=== PATIENT | female | born 1970 | race Caucasian/White ===

== ENCOUNTER → 2017-12-13 01:15 | Outpatient (CLI) | payer MEDICAID, SELFPAY ==
[2017-12-13] MEDS: Inhaler, Assist Device 1 EACH MC (13:09)
[2017-12-13] MEDS: Albuterol HFA 18 GM 200 PUFF INH IH (13:09)
--- NOTE | 2017-12-13 13:17 | PFT_ITS ---
PULMONARY FUNCTION TEST DATE OF SERVICE December 13, 2017 REQUESTING PROVIDER Jacquelin Skaggs M.D. INTERPRETATION OF STUDY The spirometry shows no evidence of obstructive airways disease, but there is significant bronchodilator response. There is no evidence of obstructive airways disease, but there is significant bronchodilator response, which may represent an effort-related phenomenon. However, this can represent early developing hyper reactive airways as well. When this study was compared to previous ones from 02/22/2007, 08/16/2007, 2008, 09/19/2008, 01/23/2009, 03/25/2013, the patient's FVC has largely been stable with little fluctuations and an overall 350 cc decline over 11 years. FEV1 also had slight fluctuation over time and largely stable with an overall 330 cc decline in 11 years. Susan Matos M.D. LESLEY/ingrid T-12/20/2017
== END ==
PROVIDERS: PCP Nurse Practitioner Family; Visit Provider Nurse Practitioner Family
DX: J45.909 Unspecified asthma, uncomplicated (principal)
CPT/HCPCS: 94060

== ENCOUNTER 2017-12-31 11:18 | Emergency (ER) | payer MEDICAID, SELFPAY ==
[2017-12-31 11:24] VITALS: BP 141/76; PULSE 85; RESP 16; TEMP 36.7; O2SAT 96
--- NOTE | 2017-12-31 11:48 | ED.GENADUL_ITS ---
Disposition Clinical Impression: Left knee sprain, Sprain of left ankle Disposition: HOME Condition: Stable Instructions: Ankle Sprain (ED), Knee Sprain (ED) Additional Instructions: Continue to take [id number] pain medication as directed on packaging. You may advance activity as tolerated and wear supportive bracing to help with your discomfort. If not improving over the next week please call orthopedist for reassessment and treatment if needed. Referrals: Krishna Yañez MD [ [facility] STAFF PHYSICIAN] - Valentín Kamara MD [ [facility] STAFF PHYSICIAN] - Sina Martínez MD [ [facility] STAFF PHYSICIAN] - Medical Decision Making - Medical Decision Making Patient presenting to the emergency department with chief complaint of left knee and ankle pain. Patient has a documented and reported sprain that occurred 2 weeks ago and I reviewed these notes and patient was ambulatory with full range of motion at that time which she has diffuse soft tissue tenderness on today's examination but is otherwise unremarkable and ambulatory without any gait abnormality or disturbance. Patient did have increased activity yesterday which I feel may have exacerbated the sprain. Patient has no worrisome findings to make me feel that this is fractured or dislocated and she is neurovascularly intact with full weightbearing. Given this I do not feel that radiological imaging is needed or warranted at this time but patient was provided with supportive bracing of her knee and her ankle as I feel this may help with discomfort. Otherwise patient was encouraged to continue use over-the -counter pain medication for the next 24 hours [id number] and then on a as -needed basis and if not improving over the next week to call orthopedic office for reassessment. After discussion of diagnosis and plan of care with patient patient agreed and stated no further needs, questions, or concerns at this time. History of Present Illness - General Chief complaint: Orthopedic Stated complaint: UNKNOWN Time Seen by Provider: 12/31/17 11:19 Source: patient, family, RN notes reviewed Mode of arrival: ambulatory Limitations: no limitations - History of Present Illness Initial comments: Patient reports 2 weeks ago she was coming out of a restroom and stepped wrong twisting her left knee and ankle. She was seen by her primary care provider and diagnosed with a sprain. She has been resting and applying ice and had had some slight improvement but then yesterday worked very hard outside and around the house and today is having worsening pain. Patient denies any new injury or trauma, and states that she can still walk and put pressure on the extremity but it is tender. Patient does state that she took acetaminophen but did not fully resolve her pain. Onset/Timin -: week(s) Location: left, lower extremity Severity scale (1-10): 7 Quality: aching Consistency: constant Improves with: rest Worsens with: movement Associated Symptoms: denies other symptoms Treatments Prior to Arrival: other (Acetaminophen) - Related Data Cpap 08/05/12 Inhaler, Assist Devices [Space Chamber Plus] 1 each MC PRN #1 01/20/14 Hydroxychloroquine Sulfate 400 mg PO DAILY tab-cap 11/13/14 Adalimumab [Humira] 1 ea IM DIRECTED 02/14/15 Meloxicam 7.5 mg PO DAILY 01/12/17 Hydroxyzine Pamoate [Vistaril] 50 mg PO BID PRN #60 tab-cap 05/16/17 Albuterol Sulfate [Proair Hfa] 2 puff IH Q4H PRN #3 inhaler 06/27/17 Fluticasone/Salmeterol [Advair HFA 230-21] 2 puff IH BID #3 inhaler 06/27/17 Ranitidine HCl [Zantac] 150 mg PO BID #180 tab 06/27/17 Doxepin HCl 100 mg PO HS #90 tab-cap 07/03/17 Mupirocin [MUPIROCIN 2%] 22 gm TP DAILY script 08/09/17 Venlafaxine HCl [Effexor Xr] 75 mg PO DAILY #90 tab-cap 09/19/17 Venlafaxine HCl [Effexor Xr] 150 mg PO DAILY #90 tab-cap 09/19/17 Albuterol Sulfate 1.25 mg IH QID PRN 90 Days #3 box 10/17/17 Fluticasone Propionate [Flonase] 2 puff NS DAILY #1 spray 10/27/17 Diclofenac Sodium Cr [Voltaren-Xr] 75 mg PO BID tab-cap 11/16/17 Dicyclomine HCl 10 mg PO TID PRN #90 tab-cap 12/29/17 Loratadine [Claritin] 10 mg PO DAILY #90 tab 12/29/17 Allergies Allergy/AdvReac Type Severity Reaction Status Date / Time benzonatate Allergy Severe rash Unverified 12/25/17 15:53 [From Amando Denise] codeine Allergy Unknown SKIN RASH Unverified 12/25/17 15:53 Penicillins Allergy Unknown SKIN RASH Unverified 12/25/17 15:53 Sulfa (Sulfonamide Allergy Unknown SKIN RASH Unverified 12/25/17 15:53 Antibiotics) doxycycline Allergy RASH Unverified 12/25/17 15:53 adhesive AdvReac Severe SKIN Unverified 12/25/17 15:53 BREAKDOWN montelukast AdvReac Mild NAUSEA, Unverified 12/25/17 15:53 VOMITING, DIARRHEA Review of Systems Constitutional: denies: chills, fever Respiratory: no symptoms reported. denies: shortness of breath Cardiovascular: denies: chest pain, palpitations, syncope Musculoskeletal: as per HPI, arthralgia. denies: joint swelling Skin: denies: change in color Neurological: denies: numbness, paresthesias, abnormal gait Past Medical History - Past Medical History Medical history: arthritis, GERD Patient notes chronic dermatitis for which she takes multiple medications. SESAY, developmentally delayed, Surgical history: cholecystectomy, EGD, hysterectomy, other Family history: cancer, diabetes, hypertension - Social History Smoking status: never smoker Alcohol use: none Drug use: none Living Situation: lives with family General Exam - General Limitations: other (Developmental delay) - Head Head exam: Present: atraumatic, normocephalic, normal inspection - Eye Eye exam: Present: normal apperance, PERRL - Respiratory Respiratory exam: Absent: respiratory distress - Cardiovascular Cardiovascular Exam: Present: regular rate, normal rhythm - Expanded Lower Extremity Exam Left Upper Leg exam: Present: normal inspection Knee exam: Present: full ROM, tenderness (Diffuse soft tissue), crepidus (Mild with rotational injury), pain w/ pronation/supination (Mild), full knee extension. Absent: swelling, abrasion, ecchymosis, erythema, pain/laxity with valgus, pain/laxity with varus Lower Leg exam: Present: full ROM Ankle exam: Present: full ROM, tenderness (To the anterior soft tissue). Absent : swelling, deformity, anterior draw sign Foot/Toe exam: Present: normal inspection. Absent: calcaneal tenderness, tenderness at base of 5th metatarsal Neuro vascular tendon exam: Present: no vascular compromise. Absent: pulse deficit, motor deficit, sensory deficit, tendon deficit, significant pain with passive ROM of distal joint Gait: observed and normal. negative: unable to bear weight - Neurological Exam Neurological exam: Present: alert, oriented X3. Absent: altered - Skin Skin exam: Present: warm, dry, normal color Course Vital Signs - 24 hr 12/31/17 11:24 Temperature 36.7 C Pulse 85 Respiratory 16 Rate Blood Pressure 141/76 Pulse Oximetry 96
[2017-12-31 14:56] VITALS: BP 133/74; PULSE 80; RESP 16; TEMP 36.7; O2SAT 97
== END 2017-12-31 12:25 | disposition home or self-care (01) ==
PROVIDERS: Emergency Provider Emergency Medicine; PCP Nurse Practitioner Family
DX: S83.92XA Sprain of unspecified site of left knee, initial encounter (principal); S93.402A Sprain of unspecified ligament of left ankle, initial encounter; X50.1XXA Overexertion from prolonged static or awkward postures, initial encounter
CPT/HCPCS: 29505; 29515; 99283; 99282; L1902

== ENCOUNTER 2018-01-03 16:04 | Emergency (ER) | payer MEDICAID, SELFPAY ==
[2018-01-03 16:08] VITALS: BP 151/96; PULSE 74; RESP 18; TEMP 37.1; O2SAT 95
--- NOTE | 2018-01-03 16:31 | ED.GENADUL_ITS ---
Disposition Clinical Impression: Left knee pain, Left ankle sprain Disposition: HOME Condition: Stable Instructions: Ankle Sprain (ED), Knee Pain (ED) Additional Instructions: Take your diclofenac as directed. Take Tylenol as needed and directed for additional pain. Rest, ice, elevate left lower extremity is much as possible. Follow-up with orthopedics with any persistent or worsening symptoms. Return to the emergency department with any worsening or new concerning symptoms. Medical Decision Making - Medical Decision Making 47yo F who presents for continued L ankle pain and swelling and L knee pain after a fall into a hole in the ground while walking 2 weeks ago. Pt was seen at pcp office at that time and did not have imaging and was diagnosed with a sprain and then here in the ED 3 days ago for same complaint and imaging was not indicated based on exam by provider at that time as continued symptoms was thought due to increased activity and pt was given ankle brace. Today, pt ambulated back to ED room with some limp. Pt admits to continued weight bearing since injury. She denies new injury. Her L ankle has minimal tenderness at malleoli but otherwise no ecchymoses or obvious edema. She is neurovascularly intact. Her L knee has no ligamentous instability and no evidence of trauma and no tenderness to palpation. I explained to pt that pain with sprains can last for weeks to months due to continued weight bearing if the lower extremity is not rested. Pt states she has crutches at home but she has not been using them. I offered pt an ankle and knee xray but she declined. She was given ortho f/u list on visit 3 days ago. She was instructed on the importance of RICE and to continue her diclofenac and tylenol if needed. She was instructed to f/u with ortho as needed for re-evaluation if symptoms worsen and to return here with any concerns. History of Present Illness - General Chief complaint: Orthopedic Stated complaint: SWOLLEN LEFT ANKLE Time Seen by Provider: 01/03/18 16:05 Source: patient Mode of arrival: ambulatory Limitations: no limitations - History of Present Illness Initial comments: Pt is a 47yo F who with L ankle pain and swelling and L knee pain for the past couple weeks after she stepped into a hole in the ground and twisted her ankle and knee. Pt was seen at the pcp office at that time and did not have imaging and was diagnosed with sprain. Pt was then seen here in the ED for the same complaint 3 days ago and did not have imaging at that time as it was felt her continued pain was due to continued activity and weight bearing. Pt was given ankle brace and presents today for continued ankle pain and swelling. She is also c/o continued L knee pain but she is also wearing a knee brace. She states she has been walking and weight bearing on her lower extremity. She does admit to elevation and ice and takes diclofenac for her RA. - Related Data Cpap 08/05/12 Inhaler, Assist Devices [Space Chamber Plus] 1 each MC PRN #1 01/20/14 Hydroxychloroquine Sulfate 400 mg PO DAILY tab-cap 11/13/14 Adalimumab [Humira] 1 ea IM DIRECTED 02/14/15 Meloxicam 7.5 mg PO DAILY 01/12/17 Hydroxyzine Pamoate [Vistaril] 50 mg PO BID PRN #60 tab-cap 05/16/17 Albuterol Sulfate [Proair Hfa] 2 puff IH Q4H PRN #3 inhaler 06/27/17 Fluticasone/Salmeterol [Advair HFA 230-21] 2 puff IH BID #3 inhaler 06/27/17 Ranitidine HCl [Zantac] 150 mg PO BID #180 tab 06/27/17 Doxepin HCl 100 mg PO HS #90 tab-cap 07/03/17 Mupirocin [MUPIROCIN 2%] 22 gm TP DAILY script 08/09/17 Venlafaxine HCl [Effexor Xr] 75 mg PO DAILY #90 tab-cap 09/19/17 Venlafaxine HCl [Effexor Xr] 150 mg PO DAILY #90 tab-cap 09/19/17 Albuterol Sulfate 1.25 mg IH QID PRN 90 Days #3 box 10/17/17 Fluticasone Propionate [Flonase] 2 puff NS DAILY #1 spray 10/27/17 Diclofenac Sodium Cr [Voltaren-Xr] 75 mg PO BID tab-cap 11/16/17 Dicyclomine HCl 10 mg PO TID PRN #90 tab-cap 12/29/17 Loratadine [Claritin] 10 mg PO DAILY #90 tab 12/29/17 Allergies Allergy/AdvReac Type Severity Reaction Status Date / Time benzonatate Allergy Severe rash Unverified 01/03/18 16:11 [From Milychilocaprice Camelia] codeine Allergy Unknown SKIN RASH Unverified 01/03/18 16:11 Penicillins Allergy Unknown SKIN RASH Unverified 01/03/18 16:11 Sulfa (Sulfonamide Allergy Unknown SKIN RASH Unverified 01/03/18 16:11 Antibiotics) doxycycline Allergy RASH Unverified 01/03/18 16:11 adhesive AdvReac Severe SKIN Unverified 01/03/18 16:11 BREAKDOWN montelukast AdvReac Mild NAUSEA, Unverified 01/03/18 16:11 VOMITING, DIARRHEA Review of Systems Constitutional: denies: chills, fever Eyes: denies: eye pain ENT: denies: ear pain, dental pain Respiratory: denies: cough, shortness of breath Cardiovascular: denies: chest pain, dyspnea on exertion Gastrointestinal: denies: abdominal pain, nausea, vomiting Genitourinary: denies: urgency, dysuria, frequency Musculoskeletal: denies: back pain Skin: denies: rash, lesions Neurological: denies: headache, weakness, numbness Past Medical History - Past Medical History Medical history: arthritis, GERD Chronic dermatitis, Developmentally delayed Surgical history: cholecystectomy, EGD, hysterectomy, other (carpal tunnel release, Anival fundoplication) Family history: cancer, diabetes, hypertension - Social History Smoking status: current everyday smoker Alcohol use: none Drug use: none General Exam - General Limitations: no limitations General appearance: alert, in no apparent distress - Eye Eye exam: Present: EOMI - ENT ENT exam: Present: mucous membranes moist - Neck Neck exam: Present: normal inspection - Respiratory Respiratory exam: Absent: respiratory distress - Cardiovascular Cardiovascular Exam: Present: regular rate - Extremities Exam Extremities exam: Present: other (L knee with normal ROM, without edema, ecchymoses, erythema, and no pain with varus or valgus stress. Negative L anterior/posterior drawer test. No L knee ligamentous instability. No calf tenderness. Minimal tenderness L medial/lateral malleolus. No L ankle edema/ erythema/ecchymoses. L DP/PT pulses intact. No L 5th MT tenderness or trauma. MS LLE 5/5. ) - Neurological Exam Neurological exam: Present: alert, oriented X3 - Psychiatric Psychiatric exam: Present: normal affect - Skin Skin exam: Present: warm, dry, intact Course Vital Signs - 24 hr 01/03/18 16:08 Temperature 98.8 F Pulse 74 Respiratory 18 Rate Blood Pressure 151/96 Pulse Oximetry 95
[2018-01-03 16:40] VITALS: BP 151/96; PULSE 74; RESP 18; TEMP 37.1; O2SAT 95
== END 2018-01-03 16:40 | disposition home or self-care (01) ==
PROVIDERS: Emergency Provider Physician Assistant; PCP Nurse Practitioner Family
DX: M25.562 Pain in left knee (principal); S93.402A Sprain of unspecified ligament of left ankle, initial encounter; W17.2XXA Fall into hole, initial encounter
CPT/HCPCS: 99282

== ENCOUNTER 2018-01-30 12:44 | Outpatient (CLI) | payer MEDICAID, SELFPAY ==
--- NOTE | 2018-01-30 09:35 | DI.RAD_ITS ---
SYMPTOMS/DIAGNOSIS: LT ANKLE PAIN, S/P FALL SEVERAL WEEKS AGO, LT KNEE PAIN LEFT ANKLE: There is no evidence of a fracture or dislocation. Minimal degenerative changes involving the mortise joint are identified and a calcaneal spur measures 8 mm. There is spurring at the insertion of the Achilles aponeurosis on the calcaneus as well. SUMMARY: No evidence of a fracture or dislocation. LEFT KNEE: There is no evidence of a fracture or dislocation.
== END 2018-01-30 13:04 ==
PROVIDERS: PCP Nurse Practitioner Family; Visit Provider Orthopaedic Surgery
DX: M25.572 Pain in left ankle and joints of left foot (principal); M19.072 Primary osteoarthritis, left ankle and foot; M77.32 Calcaneal spur, left foot; M25.562 Pain in left knee
CPT/HCPCS: 73562; 73610

== ENCOUNTER 2018-05-31 08:22 | Outpatient (CLI) | payer MEDICAID, SELFPAY ==
[2018-05-31 12:43] LABS: Abs Immature Grans 0.01 k/cumm (0.0-0.09); Absolute Basophil Count 0.02 k/cumm (0.0-0.2); Absolute Eosinophil Count 0.03 k/cumm (0.0-0.7); Absolute Lymphocyte Count 1.71 k/cumm (1.2-3.4); Absolute Monocyte Count 0.51 k/cumm (0.11-0.7); Absolute Neutrophil Count 6.92 k/cumm (1.2-6.7); Basophils % 0.2; Eosinophils % 0.3; HCT 43.7 % (36.0-46.0); HGB 14.8 g/dL (12.0-15.5); Immature Grans % 0.1; Lymphocytes % 18.6; Mean Corp. HGB Concentration 33.9 g/dL (32.0-36.0); Mean Corpuscular Hemoglobin 30.4 pg (27.0-33.0); Mean Corpuscular Volume 89.7 fL (80-95); Mean Platelet Volume 10.2 fL (8.0-11.0); Monocytes % 5.5; Neutrophils % 75.3; Platelet Count 283 x1000/uL (130-400); RBC 4.87 m/cumm (4.00-5.20); RBC Distribution Width 12.3 % (11.7-14.6)
[2018-05-31 12:56] LABS: ALT 53 U/L (12-78); AST 16 U/L (15-37); Albumin 3.9 g/dL (3.4-5.0); Alkaline Phosphatase 92 U/L (46-116); Anion Gap 7.5 mmol/L (3-11); BUN 20 mg/dL (7-18); Bilirubin, Total 0.4 mg/dL (0.2-1.0); CO2 30.5 mmol/L (21.0-32.0); CREATININE 0.87 mg/dL (0.55-1.02); Calcium 9.2 mg/dL (8.5-10.1); Chloride 103 mmol/L (98-107); Glucose 83 mg/dL (70-100); Potassium 4.3 mmol/L (3.5-5.1); Sodium 141 mmol/L (136-145); Total Protein 7.1 g/dL (6.4-8.2)
== END 2018-05-31 08:42 ==
PROVIDERS: PCP Nurse Practitioner Family; Visit Provider Internal Medicine
DX: H20.9 Unspecified iridocyclitis (principal); L25.9 Unspecified contact dermatitis, unspecified cause
CPT/HCPCS: 36415; 80053; 85025

== ENCOUNTER 2018-06-25 13:02 | Outpatient (CLI) | payer MEDICAID, SELFPAY ==
--- NOTE | 2018-06-25 12:58 | DI.RAD_ITS ---
SYMPTOM/DIAGNOSIS: WORSENING RT KNEE PAIN RIGHT KNEE: Three views. Comparison is made with 12/21/15. There is mild narrowing and rufina- articular spurring in the medial femoral tibial joint space. There is mild joint space narrowing and rufina-articular spurring at the patellofemoral joint. The bones are intact and normally mineralized. The soft tissues are unremarkable. IMPRESSION: Stable degenerative changes of the right knee.
== END 2018-06-25 13:22 ==
PROVIDERS: PCP Nurse Practitioner Family; Visit Provider Orthopaedic Surgery
DX: M25.561 Pain in right knee (principal); M17.11 Unilateral primary osteoarthritis, right knee
CPT/HCPCS: 73562

== ENCOUNTER 2018-07-13 01:35 | Outpatient (CLI) | payer MEDICAID, SELFPAY ==
[2018-07-13 11:38] LABS: Cholesterol 235 mg/dL (50-200); HDL Cholesterol 50 mg/dL (40-60); LDL CHOLESTEROL 156 mg/dL (<100); Triglyceride 150 mg/dL (30-150)
[2018-07-13 11:39] LABS: Hemoglobin A1C 5.4 % (4.5-6.2)
[2018-07-16 05:52] LABS: Vitamin D 25 Total 16.2 ng/ml (30-100)
== END 2018-07-13 01:55 ==
PROVIDERS: PCP Nurse Practitioner Family; Visit Provider Nurse Practitioner Family
DX: E78.5 Hyperlipidemia, unspecified (principal); E55.9 Vitamin D deficiency, unspecified
CPT/HCPCS: 36415; 80061; 82306; 83721; 83036

== ENCOUNTER 2018-09-17 00:55 | Outpatient (CLI) | payer MEDICAID, SELFPAY ==
--- NOTE | 2018-09-17 10:00 | DI.MAMMO_ITS ---
SYMPTOM/DIAGNOSIS: SCREENING, Z12.31 MAMMOGRAMS: Mammograms were interpreted according to the usual protocol including computer analysis with CAD system, tomosynthesis and C view imaging. The breasts are of moderate density with fairly symmetrical distribution of fibroglandular tissue. No dominant mass or clumped microcalcification is identified in either breast. The current examination is compared with previous examinations including 09/2017 and there has been no gross interval change in appearance in comparison with the previous studies. CONCLUSION: No specific evidence of malignancy at this time. Routine screening examinations are suggested at yearly intervals due to the family history of breast carcinoma. Breast density, category B. Category 1. MQSA ASSESSMENT OF FINDINGS: Negative. Category 1. Patient will receive a letter notifying them of these results. BI-RADS category B. There are scattered areas of fibroglandular density.
== END 2018-09-17 01:15 ==
PROVIDERS: PCP Nurse Practitioner Family; Visit Provider Nurse Practitioner Family
DX: Z12.31 Encounter for screening mammogram for malignant neoplasm of breast (principal); Z80.3 Family history of malignant neoplasm of breast
CPT/HCPCS: 77063; 77067

== ENCOUNTER 2018-10-22 18:13 | Emergency (ER) | payer MEDICAID, SELFPAY ==
[2018-10-22 18:28] VITALS: BP 133/79; PULSE 74; RESP 18; TEMP 37; O2SAT 99
--- NOTE | 2018-10-22 18:45 | W.ED.GENAD ---
Discharge Plan Disposition Patient Disposition: HOME Condition: Stable Discharge Details Chief Complaint: RashLesion Clinical Impression: Urticaria Primary Care Provider: Jacquelin Skaggs ED Provider: Beck Borrego Home Meds and New Rx's Prescriptions: New prednisone 20 mg tablet 60 mg PO DAILY 4 Days Qty: 12 RF: 0 Continued fluticasone propionate 50 mcg/actuation spray,suspension 2 spray NS DAILY PRN (Reason: allergy symptoms) Qty: 18.2 RF: 4 hydroxyzine pamoate [Vistaril] 50 mg capsule 50 mg PO BID PRN (Reason: allergies) Qty: 60 RF: 5 loratadine 10 mg tablet 10 mg PO DAILY Qty: 90 RF: 4 Humira 40 mg/0.8 mL syringe kit 40 mg SC Q14D RF: 0 venlafaxine 75 mg capsule,extended release 24hr 75 mg PO DAILY Qty: 30 RF: 0 bupropion HCl [Wellbutrin XL] 150 mg tablet extended release 24 hr 150 - 300 mg PO DAILY Qty: 90 RF: 4 hydroxychloroquine 200 MG tablet 400 mg PO DAILY RF: 0 ranitidine HCl [Zantac Maximum Strength] 150 MG tablet 150 mg PO BID Qty: 180 RF: 4 albuterol sulfate [ProAir HFA] 8.5 GM HFA aerosol inhaler 2 puff Inhalation Q4H PRN Qty: 3 RF: 3 albuterol sulfate 1.25 MG/3 ML solution for nebulization 1.25 mg Inhalation QID PRN90 Days Qty: 3 RF: 4 diclofenac sodium [Voltaren-XR] 100 MG tablet extended release 24 hr 75 mg PO BID RF: 0 dicyclomine 10 MG capsule 10 mg PO TID PRNQty: 90 RF: 2 cholecalciferol (vitamin D3) 2,000 unit capsule 2,000 unit PO DAILY Qty: 90 RF: 4 Advair HFA 230-21 mcg/actuation HFA aerosol inhaler 2 puff Inhalation BID Qty: 3 RF: 4 capsaicin 0.025 % cream 1 applic TP TID PRN (Reason: knee pain) Qty: 60 RF: 0 Discharge Instructions Instructions: Urticaria (ED) Medical Decision Making 48 yo female comes in with a rash. She states last nigth she started with an itching rash on her torso and arms and continued today despite otc allergy meds. no respiratory or gi symptoms, denies new meds or detergents. She is in no distress one exam. Has mild erythema on torso and arms of various sizes that blanches, is not warm to touch or tender and appears like hives. No findings to suggest anaphylaxis, will start steroids given continued symptoms and have her f/u with pcp, return precautions given for new symptoms such as respiratory or gi symptoms or if she feels more ill Differential Diagnosis urticaria, contact dermatitis HPI General Mode of arrival: ambulatory. Date/Time Provider Initiated Documentation: 10/22/18 18:23. Limitations to Documentation: no limitations. Information obtained by: patient. History of Present Illness 48 year old F presents to the emergency department with the chief complaint of rash, described as mild, with intensity rated at 2. Quality is described as other (itching), and is localized to the chest, back and abdomen. Patient started experiencing this day(s) (1) and it has been constant. No relieving factors improve symptom(s), No exacerbating factors reported . Patient notes no other symptoms.. Related Data Home Medications Medication Instructions Recorded Confirmed hydroxychloroquine 400 mg PO DAILY tab-cap 11/13/14 10/04/18 albuterol sulfate [ProAir HFA] 2 puff INHALATION Q4H PRN #3 06/27/17 10/04/18 inhaler ranitidine HCl [Zantac Maximum 150 mg PO BID #180 tab 06/27/17 10/04/18 Strength] albuterol sulfate 1.25 mg INHALATION QID PRN 90 Days 10/17/17 10/04/18 #3 box diclofenac sodium [Voltaren-XR] 75 mg PO BID tab-cap 11/16/17 10/04/18 dicyclomine 10 mg PO TID PRN #90 tab-cap 12/29/17 10/04/18 hydroxyzine pamoate 50 mg capsule 50 mg PO BID PRN #60 tab-cap 03/26/18 10/04/18 loratadine 10 mg tablet 10 mg PO DAILY #90 tab 03/26/18 10/04/18 fluticasone propionate 50 2 spray NS DAILY PRN #18.2 gm 04/25/18 10/04/18 mcg/actuation nasal spray,suspension adalimumab 40 mg/0.8 mL 40 mg SC Q14D 07/05/18 10/04/18 subcutaneous syringe kit cholecalciferol (vitamin D3) 2,000 2,000 unit PO DAILY #90 cap 07/19/18 10/04/18 unit capsule fluticasone propionate-salmeterol 2 puff INHALATION BID #3 inhaler 07/27/18 10/04/18 230 mcg-21 mcg/actuation HFA inhaler capsaicin 0.025 % topical cream 1 applic TP TID PRN #60 gm 10/03/18 10/04/18 bupropion HCl XL 150 mg 24 hr 150 - 300 mg PO DAILY #90 tab 10/04/18 10/04/18 tablet, extended release venlafaxine ER 75 mg 75 mg PO DAILY #30 cap 10/04/18 10/04/18 capsule,extended release 24 hr prednisone 60 mg PO DAILY 4 Days #12 tab 10/22/18 Previous Rx's Medication Instructions Recorded albuterol sulfate [ProAir HFA] 2 puff INHALATION Q4H PRN #3 06/27/17 inhaler ranitidine HCl [Zantac Maximum 150 mg PO BID #180 tab 06/27/17 Strength] hydroxyzine pamoate 50 mg capsule 50 mg PO BID PRN #60 tab-cap 03/26/18 loratadine 10 mg tablet 10 mg PO DAILY #90 tab 03/26/18 fluticasone propionate 50 2 spray NS DAILY PRN #18.2 gm 04/25/18 mcg/actuation nasal spray,suspension cholecalciferol (vitamin D3) 2,000 2,000 unit PO DAILY #90 cap 07/19/18 unit capsule fluticasone propionate-salmeterol 2 puff INHALATION BID #3 inhaler 07/27/18 230 mcg-21 mcg/actuation HFA inhaler capsaicin 0.025 % topical cream 1 applic TP TID PRN #60 gm 10/03/18 bupropion HCl XL 150 mg 24 hr 150 - 300 mg PO DAILY #90 tab 10/04/18 tablet, extended release venlafaxine ER 75 mg 75 mg PO DAILY #30 cap 10/04/18 capsule,extended release 24 hr prednisone 60 mg PO DAILY 4 Days #12 tab 10/22/18 Allergies Allergy/AdvReac Type Severity Reaction Status Date / Time benzonatate Allergy Severe rash Verified 10/22/18 18:33 [From Amando Denise] codeine Allergy Unknown SKIN RASH Verified 10/22/18 18:33 Penicillins Allergy Unknown SKIN RASH Verified 10/22/18 18:33 Sulfa (Sulfonamide Allergy Unknown SKIN RASH Verified 10/22/18 18:33 Antibiotics) doxycycline Allergy RASH Verified 10/22/18 18:33 adhesive AdvReac Severe SKIN Verified 10/22/18 18:33 BREAKDOWN montelukast AdvReac Mild NAUSEA, Verified 10/22/18 18:33 VOMITING, DIARRHEA General Stated Complaint: RashLesion DONNA: 4 Review of Systems Review of Systems All systems reviewed & are unremarkable except as noted in HPI and below Constitutional Denies chills, Denies fever(s) and Denies weakness Cardiovascular Denies chest pain and Denies dyspnea Respiratory Denies cough and Denies dyspnea Gastrointestinal Denies abdominal pain, Denies nausea and Denies vomiting Genitourinary Denies dysuria Musculoskeletal Denies joint swelling Neurologic Denies weakness Endocrine Denies heat intolerance PFSH Social History Smoking/Tobacco Use Status: Never Alcohol Intake: never Drug use: Never Substance use type: does not use Adopted: No Caregiver/Support person: No Household members: family Housing: house current occupation: HOMEMAKER Pets and animals: Yes Pets and animals: other Details: RABBIT Sexually active: No Do you think of yourself as: straight/heterosexual Current gender identity: female What is your relationship status?: How often do you talk on the phone with friends or family?: never How often do you get together with friends or relatives?: decline to answer How often do you attend adventism or congregational services?: decline to answer Do you belong to any clubs or organized social groups?: no Panel score (0-1 are the most socially isolated patients): 0 What type of physical activity do you participate in: decline to answer Duration: < 15 minutes/day Frequency: decline to answer Grace/Jew: Buddhist Special grace needs: No Seatbelt use: always Drive intox or ride w/intox mobile lounge driver or operator: No Working smoke detector in home: Yes Fire extinguisher in home: Yes Carbon monox detector in home: Yes Firearms in home: No Do you feel safe in your relationship?: Yes History History 0 Para Hx # Term Pregnancies Multiple births Hx # Pregnancies Ectopic pregnancies AB induced Hx Number of Living Children AB spontaneous Exam Const General: no acute distress Orientation: alert HENMT Head: normal to inspection Ears: external ears normal General nose exam: external nose normal Mouth: moist mucous membranes Eyes General: appearance normal, both eyes and all related structures Neck Neck: normal visual inspection Resp Effort & Inspection: normal respiratory effort and able to speak in complete sentences Cardio Rate: regular rate Skin General skin exam: elasticity normal Neuro General: alert and oriented x3 Extrem General: normal to inspection Psych Mental Status: mental status grossly normal Course Vital Signs Temperature 37.0 C 10/22/18 18:28 Pulse 74 10/22/18 18:28 Respiratory Rate 18 10/22/18 18:28 Blood Pressure 133/79 10/22/18 18:28 Pulse Oximetry 99 10/22/18 18:28 Temperature 37.0 C 10/22/18 18:28 Temperature Source Skin 10/22/18 18:28 Pulse 74 10/22/18 18:28 Respiratory Rate 18 10/22/18 18:28 Blood Pressure 133/79 10/22/18 18:28 Blood Pressure Position Sitting 10/22/18 18:28 Pulse Oximetry 99 10/22/18 18:28 Oxygen Delivery Method Room Air 10/22/18 18:28 Oxygen Flow Rate 0 10/22/18 18:28 Pain Level 10 10/22/18 18:28
[2018-10-22] MEDS: predniSONE 20 MG TAB 60 MG PO (18:52)
== END 2018-10-22 18:53 | disposition home or self-care (01) ==
PROVIDERS: Emergency Provider Emergency Medicine; PCP Nurse Practitioner Family
DX: L50.9 Urticaria, unspecified (principal)
CPT/HCPCS: 99283; J7512

== ENCOUNTER 2018-10-23 19:33 | Emergency (ER) | payer MEDICAID, SELFPAY ==
[2018-10-23 19:40] VITALS: BP 141/99; PULSE 79; RESP 22; TEMP 37.1; O2SAT 96
--- NOTE | 2018-10-23 19:55 | W.ED.GENAD ---
Discharge Plan Disposition Patient Disposition: HOME Condition: Stable Discharge Details Chief Complaint: RashLesion Clinical Impression: Urticaria Primary Care Provider: Jacquelin Skaggs ED Provider: Beck Borrego Home Meds and New Rx's Prescriptions: New famotidine 40 mg tablet 40 mg PO DAILY Qty: 7 RF: 0 No Action fluticasone propionate 50 mcg/actuation spray,suspension 2 spray NS DAILY PRN (Reason: allergy symptoms) Qty: 18.2 RF: 4 hydroxyzine pamoate [Vistaril] 50 mg capsule 50 mg PO BID PRN (Reason: allergies) Qty: 60 RF: 5 loratadine 10 mg tablet 10 mg PO DAILY Qty: 90 RF: 4 Humira 40 mg/0.8 mL syringe kit 40 mg SC Q14D RF: 0 bupropion HCl [Wellbutrin XL] 150 mg tablet extended release 24 hr 150 - 300 mg PO DAILY Qty: 90 RF: 4 hydroxychloroquine 200 MG tablet 400 mg PO DAILY RF: 0 ranitidine HCl [Zantac Maximum Strength] 150 MG tablet 150 mg PO BID Qty: 180 RF: 4 albuterol sulfate [ProAir HFA] 8.5 GM HFA aerosol inhaler 2 puff Inhalation Q4H PRN Qty: 3 RF: 3 albuterol sulfate 1.25 MG/3 ML solution for nebulization 1.25 mg Inhalation QID PRN90 Days Qty: 3 RF: 4 diclofenac sodium [Voltaren-XR] 100 MG tablet extended release 24 hr 75 mg PO BID RF: 0 dicyclomine 10 MG capsule 10 mg PO TID PRNQty: 90 RF: 2 cholecalciferol (vitamin D3) 2,000 unit capsule 2,000 unit PO DAILY Qty: 90 RF: 4 Advair HFA 230-21 mcg/actuation HFA aerosol inhaler 2 puff Inhalation BID Qty: 3 RF: 4 capsaicin 0.025 % cream 1 applic TP TID PRN (Reason: knee pain) Qty: 60 RF: 0 prednisone 20 mg tablet 60 mg PO DAILY 4 Days Qty: 12 RF: 0 Discharge Instructions Additional Instructions: you can try over the couter benadryl cream if you have difficulty breathing, severe abdominal pain or persistent vomit return to the emergency department for reevaluation follow up with your primary care provider within a week especially if symptoms continue Medical Decision Making 48 yo female comes in with 3 days of rash with no known new exposure to meds or detergents. Seen yesterday and started on prednisone, still has no gi/respiratory symptoms or mucous membrane involvement but still has pruritus so came here. Has multiple vasrious sizes of slightly rasied erythematous, not warm blanching patches on arms and torso. In no distress on exam and rash consistent with urticaria. No findings to suggest sjs/ten, anaphylaxis, infectious etiology. will add h2 rayne and have her f/u with pcp this week and return precautions given Differential Diagnosis hives, dermatitis HPI General Mode of arrival: ambulatory. Date/Time Provider Initiated Documentation: 10/23/18 19:48. Limitations to Documentation: no limitations. Information obtained by: patient. History of Present Illness 48 year old F presents to the emergency department with the chief complaint of rash, itching, described as moderate, and is localized to the back and abdomen. Patient started experiencing this day(s) (3) and it has been constant. No relieving factors improve symptom(s), No exacerbating factors reported . Patient notes no other symptoms.. Related Data Home Medications Medication Instructions Recorded Confirmed hydroxychloroquine 400 mg PO DAILY tab-cap 11/13/14 10/23/18 albuterol sulfate [ProAir HFA] 2 puff INHALATION Q4H PRN #3 06/27/17 10/23/18 inhaler ranitidine HCl [Zantac Maximum 150 mg PO BID #180 tab 06/27/17 10/23/18 Strength] albuterol sulfate 1.25 mg INHALATION QID PRN 90 Days 10/17/17 10/04/18 #3 box diclofenac sodium [Voltaren-XR] 75 mg PO BID tab-cap 11/16/17 10/23/18 dicyclomine 10 mg PO TID PRN #90 tab-cap 12/29/17 10/23/18 hydroxyzine pamoate 50 mg capsule 50 mg PO BID PRN #60 tab-cap 03/26/18 10/23/18 loratadine 10 mg tablet 10 mg PO DAILY #90 tab 03/26/18 10/23/18 fluticasone propionate 50 2 spray NS DAILY PRN #18.2 gm 04/25/18 10/04/18 mcg/actuation nasal spray,suspension adalimumab 40 mg/0.8 mL 40 mg SC Q14D 07/05/18 10/23/18 subcutaneous syringe kit cholecalciferol (vitamin D3) 2,000 2,000 unit PO DAILY #90 cap 07/19/18 10/23/18 unit capsule fluticasone propionate-salmeterol 2 puff INHALATION BID #3 inhaler 07/27/18 10/23/18 230 mcg-21 mcg/actuation HFA inhaler capsaicin 0.025 % topical cream 1 applic TP TID PRN #60 gm 10/03/18 10/23/18 bupropion HCl XL 150 mg 24 hr 150 - 300 mg PO DAILY #90 tab 10/04/18 10/23/18 tablet, extended release prednisone 60 mg PO DAILY 4 Days #12 tab 10/22/18 10/23/18 famotidine 40 mg PO DAILY #7 tab 10/23/18 Previous Rx's Medication Instructions Recorded albuterol sulfate [ProAir HFA] 2 puff INHALATION Q4H PRN #3 06/27/17 inhaler ranitidine HCl [Zantac Maximum 150 mg PO BID #180 tab 06/27/17 Strength] hydroxyzine pamoate 50 mg capsule 50 mg PO BID PRN #60 tab-cap 03/26/18 loratadine 10 mg tablet 10 mg PO DAILY #90 tab 03/26/18 fluticasone propionate 50 2 spray NS DAILY PRN #18.2 gm 04/25/18 mcg/actuation nasal spray,suspension cholecalciferol (vitamin D3) 2,000 2,000 unit PO DAILY #90 cap 07/19/18 unit capsule fluticasone propionate-salmeterol 2 puff INHALATION BID #3 inhaler 07/27/18 230 mcg-21 mcg/actuation HFA inhaler capsaicin 0.025 % topical cream 1 applic TP TID PRN #60 gm 10/03/18 bupropion HCl XL 150 mg 24 hr 150 - 300 mg PO DAILY #90 tab 10/04/18 tablet, extended release prednisone 60 mg PO DAILY 4 Days #12 tab 10/22/18 famotidine 40 mg PO DAILY #7 tab 10/23/18 Allergies Allergy/AdvReac Type Severity Reaction Status Date / Time benzonatate Allergy Severe rash Verified 10/22/18 18:33 [From Amando Denise] codeine Allergy Unknown SKIN RASH Verified 10/22/18 18:33 Penicillins Allergy Unknown SKIN RASH Verified 10/22/18 18:33 Sulfa (Sulfonamide Allergy Unknown SKIN RASH Verified 10/22/18 18:33 Antibiotics) doxycycline Allergy RASH Verified 10/22/18 18:33 adhesive AdvReac Severe SKIN Verified 10/22/18 18:33 BREAKDOWN montelukast AdvReac Mild NAUSEA, Verified 10/22/18 18:33 VOMITING, DIARRHEA General Stated Complaint: RashLesion DONNA: 3 Review of Systems Review of Systems All systems reviewed & are unremarkable except as noted in HPI and below Constitutional Denies chills, Denies fever(s) and Denies weakness ENT Denies change in voice Cardiovascular Denies chest pain and Denies dyspnea Respiratory Denies cough and Denies dyspnea Gastrointestinal Denies abdominal pain, Denies nausea and Denies vomiting Musculoskeletal Denies joint swelling Neurologic Denies weakness PFSH Social History Smoking/Tobacco Use Status: Never Alcohol Intake: never Drug use: Never Substance use type: does not use Adopted: No Caregiver/Support person: No Household members: family Housing: house current occupation: HOMEMAKER Pets and animals: Yes Pets and animals: other Details: RABBIT Sexually active: No Do you think of yourself as: straight/heterosexual Current gender identity: female What is your relationship status?: How often do you talk on the phone with friends or family?: never How often do you get together with friends or relatives?: decline to answer How often do you attend orthodox or latter day services?: decline to answer Do you belong to any clubs or organized social groups?: no Panel score (0-1 are the most socially isolated patients): 0 What type of physical activity do you participate in: decline to answer Duration: < 15 minutes/day Frequency: decline to answer Grace/Worship: Voodoo Special grace needs: No Seatbelt use: always Drive intox or ride w/intox residential driver: No Working smoke detector in home: Yes Fire extinguisher in home: Yes Carbon monox detector in home: Yes Firearms in home: No Do you feel safe at home: Yes Do you feel safe in your relationship?: Yes History History 0 Para Hx # Term Pregnancies Multiple births Hx # Pregnancies Ectopic pregnancies AB induced Hx Number of Living Children AB spontaneous Exam Const General: no acute distress Orientation: alert HENMT Head: normal to inspection Ears: external ears normal General nose exam: external nose normal Mouth: moist mucous membranes Eyes General: appearance normal, both eyes and all related structures Neck Neck: normal visual inspection Resp Effort & Inspection: normal respiratory effort and able to speak in complete sentences Cardio Rate: regular rate Skin General skin exam: elasticity normal Neuro General: alert and oriented x3 Extrem General: normal to inspection Psych Mental Status: mental status grossly normal Course Vital Signs Temperature 37.1 C 10/23/18 19:40 Pulse 79 10/23/18 19:40 Respiratory Rate 10/23/18 19:40 Blood Pressure 141/99 H 10/23/18 19:40 Pulse Oximetry 96 10/23/18 19:40 Temperature 37.1 C 10/23/18 19:40 Temperature Source Tympanic 10/23/18 19:40 Pulse 79 10/23/18 19:40 Respiratory Rate 10/23/18 19:40 Blood Pressure 141/99 H 10/23/18 19:40 Blood Pressure Position Sitting 10/23/18 19:40 Pulse Oximetry 96 10/23/18 19:40 Oxygen Delivery Method Room Air 10/23/18 19:40 Oxygen Flow Rate 0 10/23/18 19:40 Pain Level 0 10/23/18 19:40
--- NOTE | 2018-10-23 19:58 | ED.GENADUL_ITS ---
Discharge Plan Disposition Patient Disposition: HOME Condition: Stable Discharge Details Chief Complaint: RashLesion Clinical Impression: Urticaria Primary Care Provider: Jacquelin Skaggs ED Provider: Beck Borrego Home Meds and New Rx's Prescriptions: New famotidine 40 mg tablet 40 mg PO DAILY Qty: 7 RF: 0 No Action fluticasone propionate 50 mcg/actuation spray,suspension 2 spray NS DAILY PRN (Reason: allergy symptoms) Qty: 18.2 RF: 4 hydroxyzine pamoate [Vistaril] 50 mg capsule 50 mg PO BID PRN (Reason: allergies) Qty: 60 RF: 5 loratadine 10 mg tablet 10 mg PO DAILY Qty: 90 RF: 4 Humira 40 mg/0.8 mL syringe kit 40 mg SC Q14D RF: 0 bupropion HCl [Wellbutrin XL] 150 mg tablet extended release 24 hr 150 - 300 mg PO DAILY Qty: 90 RF: 4 hydroxychloroquine 200 MG tablet 400 mg PO DAILY RF: 0 ranitidine HCl [Zantac Maximum Strength] 150 MG tablet 150 mg PO BID Qty: 180 RF: 4 albuterol sulfate [ProAir HFA] 8.5 GM HFA aerosol inhaler 2 puff Inhalation Q4H PRN Qty: 3 RF: 3 albuterol sulfate 1.25 MG/3 ML solution for nebulization 1.25 mg Inhalation QID PRN90 Days Qty: 3 RF: 4 diclofenac sodium [Voltaren-XR] 100 MG tablet extended release 24 hr 75 mg PO BID RF: 0 dicyclomine 10 MG capsule 10 mg PO TID PRNQty: 90 RF: 2 cholecalciferol (vitamin D3) 2,000 unit capsule 2,000 unit PO DAILY Qty: 90 RF: 4 Advair HFA 230-21 mcg/actuation HFA aerosol inhaler 2 puff Inhalation BID Qty: 3 RF: 4 capsaicin 0.025 % cream 1 applic TP TID PRN (Reason: knee pain) Qty: 60 RF: 0 prednisone 20 mg tablet 60 mg PO DAILY 4 Days Qty: 12 RF: 0 Discharge Instructions Additional Instructions: you can try over the couter benadryl cream if you have difficulty breathing, severe abdominal pain or persistent vomit return to the emergency department for reevaluation follow up with your primary care provider within a week especially if symptoms continue Medical Decision Making 48 yo female comes in with 3 days of rash with no known new exposure to meds or detergents. Seen yesterday and started on prednisone, still has no gi/respiratory symptoms or mucous membrane involvement but still has pruritus so came here. Has multiple vasrious sizes of slightly rasied erythematous, not warm blanching patches on arms and torso. In no distress on exam and rash consistent with urticaria. No findings to suggest sjs/ten, anaphylaxis, infectious etiology. will add h2 rayne and have her f/u with pcp this week and return precautions given Differential Diagnosis hives, dermatitis HPI General Mode of arrival: ambulatory . Date/Time Provider Initiated Documentation: 10/23/18 19:48 . Limitations to Documentation: no limitations . Information obtained by: patient . History of Present Illness 48 year old F presents to the emergency department with the chief complaint of rash, itching, described as moderate, and is localized to the back and abdomen. Patient started experiencing this day(s) (3) and it has been constant. No relieving factors improve symptom(s), No exacerbating factors reported . Patient notes no other symptoms.. Related Data Home Medications Medication Instructions Recorded Confirmed hydroxychloroquine 400 mg PO DAILY tab-cap 11/13/14 10/23/18 albuterol sulfate [ProAir HFA] 2 puff INHALATION Q4H PRN #3 06/27/17 10/23/18 inhaler ranitidine HCl [Zantac Maximum 150 mg PO BID #180 tab 06/27/17 10/23/18 Strength] albuterol sulfate 1.25 mg INHALATION QID PRN 90 Days 10/17/17 10/04/18 #3 box diclofenac sodium [Voltaren-XR] 75 mg PO BID tab-cap 11/16/17 10/23/18 dicyclomine 10 mg PO TID PRN #90 tab-cap 12/29/17 10/23/18 hydroxyzine pamoate 50 mg capsule 50 mg PO BID PRN #60 tab-cap 03/26/18 10/23/18 loratadine 10 mg tablet 10 mg PO DAILY #90 tab 03/26/18 10/23/18 fluticasone propionate 50 2 spray NS DAILY PRN #18.2 gm 04/25/18 10/04/18 mcg/actuation nasal spray,suspension adalimumab 40 mg/0.8 mL 40 mg SC Q14D 07/05/18 10/23/18 subcutaneous syringe kit cholecalciferol (vitamin D3) 2,000 2,000 unit PO DAILY #90 cap 07/19/18 10/23/18 unit capsule fluticasone propionate-salmeterol 2 puff INHALATION BID #3 inhaler 07/27/18 10/23/18 230 mcg-21 mcg/actuation HFA inhaler capsaicin 0.025 % topical cream 1 applic TP TID PRN #60 gm 10/03/18 10/23/18 bupropion HCl XL 150 mg 24 hr 150 - 300 mg PO DAILY #90 tab 10/04/18 10/23/18 tablet, extended release prednisone 60 mg PO DAILY 4 Days #12 tab 10/22/18 10/23/18 famotidine 40 mg PO DAILY #7 tab 10/23/18 Previous Rx's Medication Instructions Recorded albuterol sulfate [ProAir HFA] 2 puff INHALATION Q4H PRN #3 06/27/17 inhaler ranitidine HCl [Zantac Maximum 150 mg PO BID #180 tab 06/27/17 Strength] hydroxyzine pamoate 50 mg capsule 50 mg PO BID PRN #60 tab-cap 03/26/18 loratadine 10 mg tablet 10 mg PO DAILY #90 tab 03/26/18 fluticasone propionate 50 2 spray NS DAILY PRN #18.2 gm 04/25/18 mcg/actuation nasal spray,suspension cholecalciferol (vitamin D3) 2,000 2,000 unit PO DAILY #90 cap 07/19/18 unit capsule fluticasone propionate-salmeterol 2 puff INHALATION BID #3 inhaler 07/27/18 230 mcg-21 mcg/actuation HFA inhaler capsaicin 0.025 % topical cream 1 applic TP TID PRN #60 gm 10/03/18 bupropion HCl XL 150 mg 24 hr 150 - 300 mg PO DAILY #90 tab 10/04/18 tablet, extended release prednisone 60 mg PO DAILY 4 Days #12 tab 10/22/18 famotidine 40 mg PO DAILY #7 tab 10/23/18 Allergies Allergy/AdvReac Type Severity Reaction Status Date / Time benzonatate Allergy Severe rash Verified 10/22/18 18:33 [From Amando Denise] codeine Allergy Unknown SKIN RASH Verified 10/22/18 18:33 Penicillins Allergy Unknown SKIN RASH Verified 10/22/18 18:33 Sulfa (Sulfonamide Allergy Unknown SKIN RASH Verified 10/22/18 18:33 Antibiotics) doxycycline Allergy RASH Verified 10/22/18 18:33 adhesive AdvReac Severe SKIN Verified 10/22/18 18:33 BREAKDOWN montelukast AdvReac Mild NAUSEA, Verified 10/22/18 18:33 VOMITING, DIARRHEA General Stated Complaint: RashLesion DONNA: 3 Review of Systems Review of Systems All systems reviewed & are unremarkable except as noted in HPI and below Constitutional Denies chills, Denies fever(s) and Denies weakness ENT Denies change in voice Cardiovascular Denies chest pain and Denies dyspnea Respiratory Denies cough and Denies dyspnea Gastrointestinal Denies abdominal pain, Denies nausea and Denies vomiting Musculoskeletal Denies joint swelling Neurologic Denies weakness PFSH Social History Smoking/Tobacco Use Status: Never Alcohol Intake: never Drug use: Never Substance use type: does not use Adopted: No Caregiver/Support person: No Household members: family Housing: house current occupation: HOMEMAKER Pets and animals: Yes Pets and animals: other Details: RABBIT Sexually active: No Do you think of yourself as: straight/heterosexual Current gender identity: female What is your relationship status?: How often do you talk on the phone with friends or family?: never How often do you get together with friends or relatives?: decline to answer How often do you attend yarsani or sikhism services?: decline to answer Do you belong to any clubs or organized social groups?: no Panel score (0-1 are the most socially isolated patients): 0 What type of physical activity do you participate in: decline to answer Duration: < 15 minutes/day Frequency: decline to answer Grace/Christianity: Rastafari Special grace needs: No Seatbelt use: always Drive intox or ride w/intox m48/m60 tank driver: No Working smoke detector in home: Yes Fire extinguisher in home: Yes Carbon monox detector in home: Yes Firearms in home: No Do you feel safe at home: Yes Do you feel safe in your relationship?: Yes History History 0 Para Hx # Term Pregnancies Multiple births Hx # Pregnancies Ectopic pregnancies AB induced Hx Number of Living Children AB spontaneous Exam Const General: no acute distress Orientation: alert HENMT Head: normal to inspection Ears: external ears normal General nose exam: external nose normal Mouth: moist mucous membranes Eyes General: appearance normal, both eyes and all related structures Neck Neck: normal visual inspection Resp Effort & Inspection: normal respiratory effort and able to speak in complete se ntences Cardio Rate: regular rate Skin General skin exam: elasticity normal Neuro General: alert and oriented x3 Extrem General: normal to inspection Psych Mental Status: mental status grossly normal Course Vital Signs Temperature 37.1 C 10/23/18 19:40 Pulse 79 10/23/18 19:40 Respiratory Rate 10/23/18 19:40 Blood Pressure 141/99 H 10/23/18 19:40 Pulse Oximetry 96 10/23/18 19:40 Temperature 37.1 C 10/23/18 19:40 Temperature Source Tympanic 10/23/18 19:40 Pulse 79 10/23/18 19:40 Respiratory Rate 22 10/23/18 19:40 Blood Pressure 141/99 H 10/23/18 19:40 Blood Pressure Position Sitting 10/23/18 19:40 Pulse Oximetry 96 10/23/18 19:40 Oxygen Delivery Method Room Air 10/23/18 19:40 Oxygen Flow Rate 0 10/23/18 19:40 Pain Level 0 10/23/18 19:40
[2018-10-23] MEDS: Famotidine 20 MG TAB 40 MG PO (20:01)
[2018-10-23 20:05] VITALS: BP 141/99; PULSE 79; RESP 22; O2SAT 96
== END 2018-10-23 20:05 | disposition home or self-care (01) ==
PROVIDERS: Emergency Provider Emergency Medicine; PCP Nurse Practitioner Family
DX: L50.9 Urticaria, unspecified (principal)
CPT/HCPCS: 99283

== ENCOUNTER 2018-12-07 04:17 | Outpatient (CLI) | payer MEDICAID, SELFPAY ==
[2018-12-10 12:23] LABS: Vitamin D 25 Total 34.9 ng/ml (30-100)
== END 2018-12-07 04:37 ==
PROVIDERS: PCP Nurse Practitioner Family; Visit Provider Nurse Practitioner Family
DX: E55.9 Vitamin D deficiency, unspecified (principal)
CPT/HCPCS: 36415; 82306

== ENCOUNTER 2019-04-17 19:44 | Emergency (ER) | payer MEDICAID, SELFPAY ==
[2019-04-17 19:59] VITALS: BP 132/69; PULSE 65; RESP 20; TEMP 36.7; O2SAT 96
--- NOTE | 2019-04-17 20:00 | W.ED.GENAD ---
Discharge Plan Disposition Patient Disposition: HOME Condition: Good Discharge Details Chief Complaint: Headache Clinical Impression: Headache Primary Care Provider: Jacquelin Skaggs ED Provider: Man Jin Meds and New Rx's Prescriptions: Continued Advair HFA 230-21 mcg/actuation HFA aerosol inhaler 2 puff Inhalation BID Qty: 3 RF: 4 hydroxyzine pamoate [Vistaril] 50 mg capsule 50 mg PO BID PRN (Reason: allergies) Qty: 60 RF: 5 Humira 40 mg/0.8 mL syringe kit 40 mg SC Q14D RF: 0 triamcinolone acetonide 0.1 % cream 1 applic TP BID PRN (Reason: dermatitis) Qty: 80 RF: 1 aripiprazole [Abilify] 5 mg tablet 5 mg PO DAILY RF: 0 sertraline 100 mg tablet 150 mg PO DAILY Qty: 145 RF: 4 albuterol sulfate [ProAir HFA] 90 mcg/actuation HFA aerosol inhaler 2 puff Inhalation Q4H PRN Qty: 3 RF: 3 albuterol sulfate 1.25 mg/3 mL solution for nebulization 1.25 mg Inhalation QID PRN (Reason: shortness of breath or wheezing) Qty: 90 RF: 4 dicyclomine 10 mg capsule 10 mg PO TID PRN (Reason: IBS) Qty: 90 RF: 4 fluticasone propionate 50 mcg/actuation spray,suspension 2 spray NS DAILY PRN (Reason: allergy symptoms) Qty: 18.2 RF: 4 hydroxychloroquine 200 MG tablet 400 mg PO DAILY RF: 0 ranitidine HCl [Zantac Maximum Strength] 150 MG tablet 150 mg PO BID Qty: 180 RF: 4 diclofenac sodium [Voltaren-XR] 100 MG tablet extended release 24 hr 75 mg PO BID RF: 0 cholecalciferol (vitamin D3) 2,000 unit capsule 2,000 unit PO DAILY Qty: 90 RF: 4 capsaicin 0.025 % cream 1 applic TP TID PRN (Reason: knee pain) Qty: 60 RF: 0 loratadine 10 mg tablet 10 mg PO DAILY Qty: 90 RF: 4 Discharge Instructions Additional Instructions: Go home and get some sleep tonight. Stay hydrated. Follow-up with primary care as needed. Return to ED for new or worsening headache, neurologic change, fever, other concerns or problems. Referrals: Adjovu,Jacqulein, CLINICAL SOCIAL WORKER [Primary Care Provider] - Medical Decision Making Patient presenting with headache that is typical for her but will not go away. She has normal vital signs, afebrile, normal neurologic exam. Will place IV and give fluids, Toradol, Reglan and Benadryl and reevaluate. Headache has completely resolved. Patient feels fine. Wants to be discharged home. Return to ED for new or worsening headache, neurologic change, fever, other concerns or problems. HPI General Mode of arrival: ambulatory. Date/Time Provider Initiated Documentation: 04/17/19 19:58. Limitations to Documentation: no limitations. Information obtained by: patient, RN notes reviewed and old records reviewed. HPI Narrative: Patient presents to ED with headache. Patient reports history of headaches although not frequent. Typically takes something like Excedrin Migraine and they go away. This headache started about 3 days ago. It is frontal and throbbing in nature. She has associated photophobia and nausea. She has no neurologic symptoms. She has no fever. Headache started out as her normal typical headache but just will not go away. Related Data Home Medications Medication Instructions Recorded Confirmed hydroxychloroquine 400 mg PO DAILY tab-cap 11/13/14 02/04/19 ranitidine HCl [Zantac Maximum 150 mg PO BID #180 tab 06/27/17 02/04/19 Strength] diclofenac sodium [Voltaren-XR] 75 mg PO BID tab-cap 11/16/17 02/04/19 hydroxyzine pamoate 50 mg capsule 50 mg PO BID PRN #60 tab-cap 03/26/18 02/04/19 adalimumab 40 mg/0.8 mL 40 mg SC Q14D 07/05/18 02/04/19 subcutaneous syringe kit cholecalciferol (vitamin D3) 50 2,000 unit PO DAILY #90 cap 07/19/18 02/04/19 mcg (2,000 unit) capsule capsaicin 0.025 % topical cream 1 applic TP TID PRN #60 gm 10/03/18 02/04/19 triamcinolone acetonide 0.1 % 1 applic TP BID PRN #80 gm 11/05/18 02/04/19 topical cream fluticasone propionate-salmeterol 2 puff INHALATION BID #3 inhaler 11/14/18 02/04/19 230 mcg-21 mcg/actuation HFA inhaler albuterol sulfate 1.25 mg/3 mL 1.25 mg INHALATION QID PRN #90 ml 02/04/19 02/04/19 solution for nebulization albuterol sulfate 90 mcg/actuation 2 puff INHALATION Q4H PRN #3 02/04/19 02/04/19 aerosol inhaler inhaler aripiprazole 5 mg tablet 5 mg PO DAILY 02/04/19 02/04/19 dicyclomine 10 mg capsule 10 mg PO TID PRN #90 tab-cap 02/04/19 02/04/19 fluticasone propionate 50 2 spray NS DAILY PRN #18.2 gm 02/04/19 02/04/19 mcg/actuation nasal spray,suspension sertraline 100 mg tablet 150 mg PO DAILY #145 tab 02/04/19 02/04/19 loratadine 10 mg tablet 10 mg PO DAILY #90 tab 04/04/19 Previous Rx's Medication Instructions Recorded ranitidine HCl [Zantac Maximum 150 mg PO BID #180 tab 06/27/17 Strength] hydroxyzine pamoate 50 mg capsule 50 mg PO BID PRN #60 tab-cap 03/26/18 cholecalciferol (vitamin D3) 50 2,000 unit PO DAILY #90 cap 07/19/18 mcg (2,000 unit) capsule capsaicin 0.025 % topical cream 1 applic TP TID PRN #60 gm 10/03/18 triamcinolone acetonide 0.1 % 1 applic TP BID PRN #80 gm 11/05/18 topical cream fluticasone propionate-salmeterol 2 puff INHALATION BID #3 inhaler 11/14/18 230 mcg-21 mcg/actuation HFA inhaler albuterol sulfate 1.25 mg/3 mL 1.25 mg INHALATION QID PRN #90 ml 02/04/19 solution for nebulization albuterol sulfate 90 mcg/actuation 2 puff INHALATION Q4H PRN #3 02/04/19 aerosol inhaler inhaler dicyclomine 10 mg capsule 10 mg PO TID PRN #90 tab-cap 02/04/19 fluticasone propionate 50 2 spray NS DAILY PRN #18.2 gm 02/04/19 mcg/actuation nasal spray,suspension sertraline 100 mg tablet 150 mg PO DAILY #145 tab 02/04/19 loratadine 10 mg tablet 10 mg PO DAILY #90 tab 04/04/19 Allergies Allergy/AdvReac Type Severity Reaction Status Date / Time benzonatate Allergy Severe rash Verified 02/04/19 09:33 [From Amando Denise] codeine Allergy Unknown SKIN RASH Verified 02/04/19 09:33 Penicillins Allergy Unknown SKIN RASH Verified 02/04/19 09:33 Sulfa (Sulfonamide Allergy Unknown SKIN RASH Verified 02/04/19 09:33 Antibiotics) doxycycline Allergy RASH Verified 02/04/19 09:33 adhesive AdvReac Severe SKIN Verified 02/04/19 09:33 BREAKDOWN montelukast AdvReac Mild NAUSEA, Verified 02/04/19 09:33 VOMITING, DIARRHEA General DONNA: 3 Review of Systems Narrative: As documented in HPI otherwise negative as below. Const: no fever, chills, weakness Resp: no cough, SOB, pleuritic pain CV: no CP, diaphoresis, edema, syncope GI: nausea; no abdominal pain, vomiting, diarrhea Neuro: headache; no numbness, focal weakness, confusion [facility] Medical History Central sleep apnea (Chronic) Depressive disorder (Chronic) Generalized anxiety disorder (Chronic) GERD (gastroesophageal reflux disease) (Chronic) Gluten intolerance (Chronic) Tissue Transglutamin IgA, Gliadin IgG and IgA, endomysial IgA negative 11/2007 Skin biopsies negative for DH Hyperlipidemia (Chronic 11/30/12) Irritable bowel syndrome (Chronic) Moderate persistent asthma (Chronic) Obstructive sleep apnea syndrome (Chronic 07/28/09) 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 Follow[place] by microsystems engineer Dr. Ari Garcia [place] [facility] Negative rheumatoid factor, HLA-B27, FTA, CCP, GUERDA, ANCA, lyme Vitamin D deficiency (Inactive 08/05/14) Surgical History Cholecystectomy (Inactive 08/16/16) Anival Fundoplication (Inactive 12/18/07) At [facility] for GERD Open Carpal Tunnel release (Inactive 12/29/09) Right 1996; Left 2009 S/P laparoscopic hysterectomy (Inactive ~05/1999) at [facility] for endometriosis S/P right knee arthroscopy (Inactive 01/20/17) Right knee arthroscopy with medial femoral chondroplasty and limited microfracture. Removal of fixed loose body, notch right knee. Chondroplasty patella. Status post bilateral salpingectomy (Inactive ~05/1999) Social History Smoking/Tobacco Use Status: Never Alcohol Intake: never Drug use: Never Substance use type: does not use Adopted: No Caregiver/Support person: No Household members: family Housing: house current occupation: HOMEMAKER Pets and animals: Yes Pets and animals: other Details: RABBIT Sexually active: No Do you think of yourself as: straight/heterosexual Current gender identity: female What is your relationship status?: How often do you talk on the phone with friends or family?: never How often do you get together with friends or relatives?: decline to answer How often do you attend amish or hinduism services?: decline to answer Do you belong to any clubs or organized social groups?: no Panel score (0-1 are the most socially isolated patients): 0 What type of physical activity do you participate in: decline to answer Duration: < 15 minutes/day Frequency: decline to answer Grace/Zoroastrianism: Yarsani Special grace needs: No Seatbelt use: always Drive intox or ride w/intox farm truck driver: No Working smoke detector in home: Yes Fire extinguisher in home: Yes Carbon monox detector in home: Yes Firearms in home: No Do you feel safe at home: Yes Do you feel safe in your relationship?: Yes History History 0 Para Hx # Term Pregnancies Multiple births Hx # Pregnancies Ectopic pregnancies AB induced Hx Number of Living Children AB spontaneous Exam Narrative Exam Narrative: Vitals: Afebrile. Normal vitals and room air pulse ox. Const: Obese female in NAD. HEENT: NC/AT. Normal facial exam. Eyes: Normal conjunctiva and sclera. PERRL and EOMI. Neck: Supple. Trachea midline. Lungs: Normal respiratory effort. Lungs are clear. Cor: RRR without murmur/gallop. Good radial pulses. GI: Soft. NT/ND. No guarding or rebound. Neuro: A+O x 3. CN II - XII in tact. Normal mental status, speech, strength, sensation, gait. Ext: No C/C/E. Skin: Warm and dry without rash.
[2019-04-17 20:55] VITALS: TEMP 36.6
[2019-04-17] MEDS: diphenhydrAMINE 50 MG/ML VIAL 25 MG IVP (20:55)
[2019-04-17 20:58] VITALS: TEMP 36.2
[2019-04-17] MEDS: Ketorolac 30 MG/ML VIAL IVP (20:58)
[2019-04-17 20:59] VITALS: TEMP 36.2
[2019-04-17] MEDS: Metoclopramide 10 MG/2 ML VIAL IVP (20:59)
[2019-04-17 21:51] VITALS: BP 122/71; BP 133/74; PULSE 65; RESP 16; RESP 18; TEMP 36.6; TEMP 36.8; O2SAT 96
== END 2019-04-17 21:35 | disposition home or self-care (01) ==
PROVIDERS: Emergency Provider Emergency Medicine; PCP Nurse Practitioner Family
DX: R51 Headache (principal); R11.0 Nausea; H53.149 Visual discomfort, unspecified
CPT/HCPCS: 96374; 96375; 99284; J1200; J1885; J2765

== ENCOUNTER 2019-07-05 01:13 | Outpatient (CLI) | payer MEDICAID, SELFPAY ==
[2019-07-05 11:52] LABS: Anion Gap 8.2 mmol/L (3-11); BUN 18 mg/dL (7-18); CO2 29.8 mmol/L (21.0-32.0); CREATININE 0.88 mg/dL (0.55-1.02); Calcium 8.9 mg/dL (8.5-10.1); Calculated LDL 131 mg/dL (<100); Chloride 106 mmol/L (98-107); Cholesterol 206 mg/dL (<200); Glucose 85 mg/dL (74-106); HDL Cholesterol 57 mg/dL (40-60); Potassium 4.6 mmol/L (3.5-5.1); Sodium 144 mmol/L (136-145); Triglyceride 93 mg/dL (<150)
== END 2019-07-05 01:33 ==
PROVIDERS: PCP Nurse Practitioner Family; Visit Provider Nurse Practitioner Family
DX: E78.5 Hyperlipidemia, unspecified (principal)
CPT/HCPCS: 36415; 80048; 80061

== ENCOUNTER 2019-11-13 01:59 | Outpatient (CLI) | payer MEDICAID, SELFPAY ==
--- NOTE | 2019-11-13 08:30 | DI.MAMMO_ITS ---
EXAM: MG MAMMO SCREENING CLINICAL HISTORY: screening, Z12.39 TECHNIQUE: Bilateral full field digital CC and MLO mammographic images were obtained with 3D tomosyn thesis and utilizing computer aided detection (CAD). COMPARISON: Available for comparison. FINDINGS: Masses/Architectural Distortion: None seen. Microcalcifications: No suspicious pleomorphic-type are seen. Skin Thickening/Nipple Retraction: None. IMPRESSION: 1. No significant interval change with no specific features of malignancy noted. 2. Unless there is more urgent need, screening mammography is recommended, as per [employer] guidelines. BI-RADS Category 1 - Negative Breast Density - Category B - Scattered areas of fibroglandular density A negative radiographic report should not delay biopsy if a dominant or clinically suspicious mass is present. Up to ten percent of cancers are not identified on mammography. A negative report may reinforce clinical impression. Adenosis and dense breasts may obscure an underlying neoplasm. False positive reports average 6 to 10%. Patient will receive a letter notifying them of these results.
== END 2019-11-13 02:19 ==
PROVIDERS: PCP Nurse Practitioner Family; Visit Provider Nurse Practitioner Family
DX: Z12.31 Encounter for screening mammogram for malignant neoplasm of breast (principal)
CPT/HCPCS: 77063; 77067

== ENCOUNTER 2019-11-13 04:07 | Outpatient (CLI) | payer MEDICAID, SELFPAY ==
[2019-11-13 12:36] LABS: Absolute Basophil Count 0.02 k/cumm (0.0-0.2); Absolute Eosinophil Count 0.16 k/cumm (0.0-0.7); Absolute Lymphocyte Count 1.46 k/cumm (1.2-3.4); Absolute Monocyte Count 0.21 k/cumm (0.11-0.7); Absolute Neutrophil Count 2.77 k/cumm (1.2-6.7); Basophils % 0.4; Eosinophils % 3.5; HCT 40.6 % (36.0-46.0); HGB 13.5 g/dL (12.0-15.5); Lymphocytes % 31.6; Mean Corp. HGB Concentration 33.3 g/dL (32.0-36.0); Mean Corpuscular Hemoglobin 29.7 pg (27.0-33.0); Mean Corpuscular Volume 89.2 fL (80-95); Monocytes % 4.5; Platelet Count 225 x1000/uL (130-400); RBC 4.55 m/cumm (4.00-5.20); RBC Distribution Width 13.1 % (11.7-14.6); White Blood Cell Count 4.62 k/cumm (4.4-10.8)
[2019-11-13 13:17] LABS: ALT 28 U/L (14-59); AST 18 U/L (15-37); Alkaline Phosphatase 101 U/L (46-116); Anion Gap 9.3 mmol/L (3-11); BUN 21 mg/dL (7-18); Bilirubin, Total 0.4 mg/dL (0.2-1.0); CO2 26.7 mmol/L (21.0-32.0); CREATININE 1.03 mg/dL (0.55-1.02); Calcium 9.2 mg/dL (8.5-10.1); Calculated LDL 126 mg/dL (<100); Chloride 106 mmol/L (98-107); Cholesterol 197 mg/dL (<200); Estimated GFR 56.49 (mL/min/1.73m2); Glucose 87 mg/dL (74-106); HDL Cholesterol 53 mg/dL (40-60); Potassium 4.5 mmol/L (3.5-5.1); Sodium 142 mmol/L (136-145); TSH (W/Ref FT4) 2.19 uIU/mL (0.36-3.74); Total Protein 6.7 g/dL (6.4-8.2); Triglyceride 93 mg/dL (<150)
[2019-11-14 04:27] LABS: Vitamin D 25 Total 33.3 ng/ml (30-100)
== END 2019-11-13 04:27 ==
PROVIDERS: PCP Nurse Practitioner Family; Visit Provider Nurse Practitioner Psychiatric/Mental Health
DX: F32.9 Major depressive disorder, single episode, unspecified (principal); Z79.899 Other long term (current) drug therapy
CPT/HCPCS: 36415; 80053; 80061; 82306; 84443; 85025

== ENCOUNTER 2020-03-18 07:51 | Outpatient (CLI) | payer MEDICAID, SELFPAY ==
[2020-03-22 19:06] LABS: Patient Race White; SARS-CoV-2 RNA Undetected (Undetected); SARS-CoV-2 Specimen Source Nasal
== END 2020-03-18 08:11 ==
PROVIDERS: PCP Nurse Practitioner Family; Visit Provider Nurse Practitioner Family
DX: R05 Cough (principal)
CPT/HCPCS: U0003

== ENCOUNTER 2020-03-25 04:46 | Outpatient (CLI) | payer MEDICAID, SELFPAY ==
[2020-03-25] MEDS: Albuterol HFA 18 GM 200 PUFF INH IH (13:42)
[2020-03-25] MEDS: Inhaler, Assist Device 1 EACH MC (13:42)
--- NOTE | 2020-03-29 18:16 | W.PFT ---
Date of service: 03/25/20 Time of Service: 01:06 Pulmonary Function Test Result Interpretation Spirometry: No evidence of obstructive airways disease, no bronchodilator response Lung Volumes: No evidence of restriction Diffusion Capacity: Mildly reduced, this is normal when corrected to alveolar volume Airway Pressure: Normal Impression Isolated mild diffusion defect. When the study was compared to previous multiple studies from 02/22/2007, 08/16/2007, 06/25/2008, 09/19/2008, 01/23/2009, 03/25/2013, 12/13/2017, FVC has remained largely stable from 2006 and certainly has improved from 2008, FEV1 had similar course Clinical Correlation therefore is recommended.
== END 2020-03-25 05:06 ==
PROVIDERS: PCP Nurse Practitioner Family; Visit Provider Nurse Practitioner Family
CPT/HCPCS: 94060; 94726; 94729

== ENCOUNTER 2020-04-03 04:17 | Outpatient (CLI) | payer MEDICAID, SELFPAY ==
--- NOTE | 2020-04-03 13:42 | DI.RAD_ITS ---
EXAM: XR CHEST 2V PA LATERAL CLINICAL HISTORY: Persistant cough for 4 weeks s/p ABT/steroids,R07.89,OTHER CHEST PAIN TECHNIQUE: 2D digital imaging was performed. COMPARISON: No exams were available for comparison FINDINGS: MEDIASTINUM: Normal. HEART: Normal. PULMONARY VASCULATURE: Normal. LUNGS: Clear. PLEURAL SPACE: No pleural effusion or pneumothorax. BONE:Within normal limits for the patient's age. OTHER FINDINGS:Normal. IMPRESSION: No acute pulmonary findings. DATA REPOSITORY: RADIATION DOSE DELIVERED:
== END 2020-04-03 04:37 ==
PROVIDERS: PCP Nurse Practitioner Family; Visit Provider Nurse Practitioner Family
DX: R07.89 Other chest pain (principal); R05 Cough
CPT/HCPCS: 71046

== ENCOUNTER 2020-05-06 02:02 | Outpatient (CLI) | payer MEDICAID, SELFPAY ==
[2020-05-06 13:26] LABS: Abs Immature Grans 0.01 10^3/uL (0.0-0.06); Absolute Basophil Count 0.05 10^3/uL (0.0-0.2); Absolute Eosinophil Count 0.24 10^3/uL (0.0-0.7); Absolute Lymphocyte Count 1.66 10^3/uL (1.2-3.4); Absolute Monocyte Count 0.29 10^3/uL (0.1-0.8); Absolute Neutrophil Count 3.26 10^3/uL (1.2-6.7); Basophils % 0.9; Eosinophils % 4.4; HCT 40.9 % (36.0-46.0); HGB 13.3 g/dL (11.2-15.7); Immature Grans % 0.2; Lymphocytes % 30.1; MCH 29.8 pg (27.0-33.0); MCHC 32.5 % (32.0-36.0); MCV 91.7 fL (80-95); MPV 10.3 fL (8.0-11.0); Monocytes % 5.3; Neutrophils % 59.1; Nucleated RBC 0 %; Platelet Count 221 10^3/uL (130-400); RBC 4.46 10^6/uL (3.93-5.22); RDW 12.7 % (11.7-14.6); RDW-SD 42.4 fL; WBC 5.51 10^3/uL (4.4-10.8)
[2020-05-06 14:22] LABS: ALT 34 U/L (14-59); AST 22 U/L (15-37); Albumin 4.1 g/dL (3.4-5.0); Alkaline Phosphatase 95 U/L (46-116); Anion Gap 9.9 mmol/L (3-11); BUN 21 mg/dL (7-18); Bilirubin, Total 0.5 mg/dL (0.2-1.0); CO2 24.1 mmol/L (21.0-32.0); Chloride 106 mmol/L (98-107); Estimated GFR 58.45 (mL/min/1.73m2); Glucose 80 mg/dL (74-106); Potassium 4.5 mmol/L (3.5-5.1); Sodium 140 mmol/L (136-145); Total Protein 6.6 g/dL (6.4-8.2)
== END 2020-05-06 02:22 ==
PROVIDERS: Internal Medicine Rheumatology; PCP Nurse Practitioner Family; Visit Provider Dermatology
DX: H20.9 Unspecified iridocyclitis (principal); Z79.1 Long term (current) use of non-steroidal anti-inflammatories (NSAID); L30.9 Dermatitis, unspecified; L28.0 Lichen simplex chronicus
CPT/HCPCS: 36415; 80053; 85025

== ENCOUNTER 2020-10-14 03:07 | Outpatient (CLI) | payer MEDICAID, SELFPAY ==
[2020-10-14 12:28] LABS: Abs Immature Grans 0.01 10^3/uL (0.0-0.06); Absolute Basophil Count 0.05 10^3/uL (0.0-0.2); Absolute Eosinophil Count 0.12 10^3/uL (0.0-0.7); Absolute Lymphocyte Count 1.98 10^3/uL (1.2-3.4); Absolute Monocyte Count 0.29 10^3/uL (0.1-0.8); Absolute Neutrophil Count 3.68 10^3/uL (1.2-6.7); Basophils % 0.8; HCT 39.3 % (36.0-46.0); HGB 12.8 g/dL (11.2-15.7); Immature Grans % 0.2; Lymphocytes % 32.3; MCHC 32.6 % (32.0-36.0); MCV 92.3 fL (80-95); MPV 10.3 fL (8.0-11.0); Monocytes % 4.7; Nucleated RBC 0 %; Platelet Count 211 10^3/uL (130-400); RBC 4.26 10^6/uL (3.93-5.22); RDW-SD 40.1 fL; WBC 6.13 10^3/uL (4.4-10.8)
[2020-10-14 12:39] LABS: Calculated LDL 122 mg/dL (<100); Cholesterol 186 mg/dL (<200); HDL Cholesterol 51 mg/dL (40-60); Triglyceride 68 mg/dL (<150)
[2020-10-14 12:43] LABS: Hemoglobin A1C 4.4 % (<5.7)
[2020-10-14 12:45] LABS: ALT 25 U/L (14-59); AST 14 U/L (15-37); Alkaline Phosphatase 106 U/L (46-116); Anion Gap 6.4 mmol/L (3-11); BUN 24 mg/dL (7-18); Bilirubin, Total 0.4 mg/dL (0.2-1.0); CO2 30.6 mmol/L (21.0-32.0); CREATININE 0.9 mg/dL (0.55-1.02); Calcium 8.9 mg/dL (8.5-10.1); Chloride 107 mmol/L (98-107); Glucose 92 mg/dL (74-106); Potassium 4.3 mmol/L (3.5-5.1); Sodium 144 mmol/L (136-145); Total Protein 6.6 g/dL (6.4-8.2)
== END 2020-10-14 03:08 | disposition home or self-care (01) ==
LOC: LOS 03:08
PROVIDERS: Internal Medicine Rheumatology; PCP Nurse Practitioner Family; Visit Provider Nurse Practitioner Family
DX: E78.5 Hyperlipidemia, unspecified (principal); Z13.1 Encounter for screening for diabetes mellitus
CPT/HCPCS: 36415; 80048; 80053; 80061; 83036; 85025

== ENCOUNTER 2020-12-07 01:00 | Outpatient (CLI) | payer MEDICAID, SELFPAY ==
--- NOTE | 2020-12-07 12:57 | DI.MAMMO_ITS ---
Exam(s) MAMMO SCREENING EXAM: MAMMO SCREENING CLINICAL HISTORY: screening,Z12.39. TECHNIQUE: Bilateral full field digital CC and MLO mammographic images were obtained with 3D tomosyn thesis and utilizing computer aided detection (CAD). COMPARISON: Prior mammograms dating back to 2011, the most recent being November 2019. FINDINGS: There are no CAD designations There are no new spiculated masses nor malignant appearing microcalcification groups. There is no significant architectural distortion nor skin thickening-retraction. IMPRESSION: No radiographic evidence of malignancy. BI-RADS Category 1 - Negative Breast Density - Category A - Almost entirely fatty Breast density Category C or D implies that the patient has dense breast tissue. Dense breast tissue can make it harder to find cancer on a mammogram. Dense breast tissue is also associated with an incr eased risk of breast cancer. This information about the result of the mammogram report was provided to the patient to raise their awareness. Use this report when you speak with the patient about their risks for breast cancer, which includes their family history. At that time, you may recommend additional screening tests (Ultrasoun d or MRI) as these tests may add significant information. A negative radiographic report should not delay biopsy if a dominant or clinically suspicious mass is present. Up to ten percent of cancers are not identified on mammography. A negative report may reinforce clinical impression. Adenosis and dense breasts may obscure an underlying neoplasm. False positive reports average 6 to 10%. Patient will receive a letter notifying them of these results.
== END 2020-12-07 01:20 ==
PROVIDERS: PCP Nurse Practitioner Family; Visit Provider Nurse Practitioner Family
DX: Z12.31 Encounter for screening mammogram for malignant neoplasm of breast (principal); R92.8 Other abnormal and inconclusive findings on diagnostic imaging of breast
CPT/HCPCS: 77063; 77067

== ENCOUNTER 2020-12-11 16:31 | Emergency (ER) | payer MEDICAID, SELFPAY ==
[2020-12-11 16:35] VITALS: BP 135/78; PULSE 62; RESP 18; TEMP 36.7; O2SAT 95
--- NOTE | 2020-12-11 16:48 | ED.GENADUL_ITS ---
Discharge Plan Disposition Patient Disposition: HOME Condition: Improving Discharge Details Clinical Impression: Headache Primary Care Provider: Jacquelin Skaggs ED Provider: Malini Gramajo Home Meds and New Rx's Prescriptions: Continued cetirizine [Zyrtec] 10 mg tablet 10 mg PO DAILY PRN (Reason: allergy symptoms) Qty: 90 RF: 4 hydroxyzine pamoate [Vistaril] 50 mg capsule 50 mg PO BID PRN (Reason: allergies) Qty: 60 RF: 5 triamcinolone acetonide 0.1 % cream 1 applic TP BID PRN (Reason: dermatitis) Qty: 80 RF: 1 albuterol sulfate [ProAir HFA] 90 mcg/actuation HFA aerosol inhaler 2 puff Inhalation Q4H PRN Qty: 3 RF: 3 Humira 40 mg/0.8 mL syringe kit 40 mg SC Q14D RF: 0 dicyclomine 10 mg capsule 10 mg PO TID PRN (Reason: IBS) Qty: 90 RF: 4 celecoxib [Celebrex] 100 mg capsule 100 mg PO BID PRNRF: 0 budesonide-formoterol [Symbicort] 160-4.5 mcg/actuation HFA aerosol inhaler 2 puff inhalation BID Qty: 10.2 RF: 4 sumatriptan succinate 50 mg tablet 50 mg PO ONCE Qty: 14 RF: 0 fluticasone propionate 50 mcg/actuation spray,suspension 2 spray NS DAILY PRN (Reason: allergy symptoms) Qty: 18.2 RF: 4 cholecalciferol (vitamin D3) 50 mcg (2,000 unit) capsule 2,000 unit PO DAILY Qty: 90 RF: 4 hydroxychloroquine 200 MG tablet 400 mg PO DAILY RF: 0 dapsone 25 mg tablet 25 mg PO DAILY RF: 0 albuterol sulfate 2.5 mg/0.5 mL solution for nebulization 2.5 mg Inhalation QID PRN (Reason: shortness of breath or wheezing) Qty: 90 RF: 4 Latuda 20 mg tablet 20 mg PO DAILY RF: 0 sertraline 100 mg tablet 200 mg PO DAILY RF: 0 Discharge Instructions Instructions: General Headache (ED) Additional Instructions: Please encourage hydration. Please go home and rest. If you develop fevers/chills, rash, neck pain, worsening headache, weakness or other new/worsening symptoms please seek care urgently once again. Please follow up with primary care in the next 1-2 weeks for reevaluation. Referrals: Jacquelin Skaggs NP [Primary Care Provider] - Medical Decision Making Patient is a pleasant 50 year old female presenting today with c/c of SESAY that has been ongoing for about 3 days. States that it feels similar to her typical SESAY but that it has persisted longer than typical and has not responded to her normal medical interventions. She states this AM she used Excedrin migraine. She reports pain came on as it typically does, this is not worse SESAY ever, no thunderclap SESAY. She denies rash, fevers/chills, neck pain, weakness, sensory deficits. On exam, patient appears nontoxic. No neurologic deficits, no rash, no nuchal rigidity. Reviewed previous notes. She has been here for similar in the past. She has done well with toradol, fluids, Reglan and Benadryl and has done well with this. Will repeat this for the patients persistent SESAY. Patient states her headache has completely resolved. She is requesting discharge. Reviewed return recautions and continued management. All of her questions and concerns were addressed, she is in agreement witht his plan. HPI General Mode of arrival: ambulatory . Date/Time Provider Initiated Documentation: 12/11/20 16:32 . Limitations to Documentation: no limitations . Information obtained by: patient, RN notes reviewed and old records reviewed . History of Present Illness 50 year old F presents to the emergency department with the chief complaint of headache, described as moderate and similar to prior episodes, with intensity rated at 6. Quality is described as aching, and is localized to the head. Patient reports no radiation. Patient started experiencing this day(s) and it has been intermittent. No relieving factors improve symptom(s), No exacerbating factors reported . Patient notes no ot her symptoms.. Patient did receive the following treatments prior to arrival, none Related Data Home Medications Medication Instructions Recorded Confirmed hydroxychloroquine 400 mg PO DAILY tab-cap 11/13/14 12/11/20 adalimumab 40 mg/0.8 mL 40 mg SC Q14D 07/05/18 12/11/20 subcutaneous syringe kit dicyclomine 10 mg capsule 10 mg PO TID PRN #90 tab-cap 02/04/19 12/11/20 celecoxib 100 mg capsule 100 mg PO BID PRN 10/17/19 12/11/20 albuterol sulfate 90 mcg/actuation 2 puff INHALATION Q4H PRN #3 03/23/20 12/11/20 aerosol inhaler inhaler dapsone 25 mg tablet 25 mg PO DAILY tab 04/29/20 12/11/20 albuterol sulfate 2.5 mg/0.5 mL 2.5 mg INHALATION QID PRN #90 ea 06/18/20 12/11/20 solution for nebulization cetirizine 10 mg tablet 10 mg PO DAILY PRN #90 tab 07/13/20 12/11/20 hydroxyzine pamoate 50 mg capsule 50 mg PO BID PRN #60 tab-cap 07/13/20 12/11/20 triamcinolone acetonide 0.1 % 1 applic TP BID PRN #80 gm 07/13/20 12/11/20 topical cream lurasidone 20 mg tablet 20 mg PO DAILY 10/22/20 12/11/20 sertraline 100 mg tablet 200 mg PO DAILY tab 10/22/20 12/11/20 budesonide-formoterol HFA 160 2 puff INHALATION BID #10.2 g 11/19/20 12/11/20 mcg-4.5 mcg/actuation aerosol inhaler cholecalciferol (vitamin D3) 50 2,000 unit PO DAILY #90 cap 12/10/20 12/11/20 mcg (2,000 unit) capsule fluticasone propionate 50 2 spray NS DAILY PRN #18.2 gm 12/10/20 12/11/20 mcg/actuation nasal spray,suspension sumatriptan succinate 50 mg tablet 50 mg PO ONCE #14 tab 12/10/20 12/11/20 Previous Rx's Medication Instructions Recorded dicyclomine 10 mg capsule 10 mg PO TID PRN #90 tab-cap 02/04/19 albuterol sulfate 90 mcg/actuation 2 puff INHALATION Q4H PRN #3 03/23/20 aerosol inhaler inhaler albuterol sulfate 2.5 mg/0.5 mL 2.5 mg INHALATION QID PRN #90 ea 06/18/20 solution for nebulization cetirizine 10 mg tablet 10 mg PO DAILY PRN #90 tab 07/13/20 hydroxyzine pamoate 50 mg capsule 50 mg PO BID PRN #60 tab-cap 07/13/20 triamcinolone acetonide 0.1 % 1 applic TP BID PRN #80 gm 07/13/20 topical cream budesonide-formoterol HFA 160 2 puff INHALATION BID #10.2 g 11/19/20 mcg-4.5 mcg/actuation aerosol inhaler cholecalciferol (vitamin D3) 50 2,000 unit PO DAILY #90 cap 12/10/20 mcg (2,000 unit) capsule fluticasone propionate 50 2 spray NS DAILY PRN #18.2 gm 12/10/20 mcg/actuation nasal spray,suspension sumatriptan succinate 50 mg tablet 50 mg PO ONCE #14 tab 12/10/20 Allergies Allergy/AdvReac Type Severity Reaction Status Date / Time benzonatate Allergy Severe rash Verified 12/11/20 16:52 [From Amando Denise] codeine Allergy Unknown SKIN RASH Verified 12/11/20 16:52 Penicillins Allergy Unknown SKIN RASH Verified 12/11/20 16:52 Sulfa (Sulfonamide Allergy Unknown SKIN RASH Verified 12/11/20 16:52 Antibiotics) doxycycline Allergy RASH Verified 12/11/20 16:52 adhesive AdvReac Severe SKIN Verified 12/11/20 16:52 BREAKDOWN montelukast AdvReac Mild NAUSEA, Verified 12/11/20 16:52 VOMITING, DIARRHEA General Stated Complaint: Headache DONNA: 3 Review of Systems Constitutional Constitutional: Reports as per HPI, Denies chills, Reports fatigue, Denies fever(s), Reports headache(s) and Denies weakness Eyes Eyes: Reports as per HPI, Denies blurry vision, Denies change in vision and Reports photophobia ENT Ears, Nose, Mouth, and Throat: Denies vertigo, Reports headache(s) and Denies neck pain Cardiovascular Cardiovascular: Reports as per HPI, Denies chest pain, Denies lightheadedness and Denies dyspnea Respiratory Respiratory: Reports as per HPI, Denies chest congestion, Denies cough and Denies dyspnea Gastrointestinal Gastrointestinal: Reports as per HPI, Denies change in bowel habits, Denies nausea and Denies vomiting Musculoskeletal Musculoskeletal: Reports as per HPI, Denies back pain and Denies neck pain Integumentary/Breasts Skin/Breast: Reports as per HPI and Denies rash Neurologic Neurologic: Reports as per HPI, Denies abnormal movements, Denies abnormal speech, Denies behavioral changes, Denies confusion, Denies vertigo, Reports headache(s), Denies localized weakness, Denies sensory deficit and Denies weakness Psychiatric Psychiatric: Denies behavioral changes and Denies confusion Endocrine Endocrine: Reports fatigue [facility] Medical History Central sleep apnea Depressive disorder Generalized anxiety disorder GERD (gastroesophageal reflux disease) Gluten intolerance Tissue Transglutamin IgA, Gliadin IgG and IgA, 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 Followed by out of school hours care worker Dr. Ari Garcia at [facility] Negative rheumatoid factor, HLA-B27, FTA, CCP, GUERDA, ANCA, lyme Vitamin D deficiency Surgical History History of carpal tunnel surgery Bilateral S/P cholecystectomy (08/16/16) S/P laparoscopic hysterectomy (~05/1999) at [facility] for endometriosis S/P right knee arthroscopy (01/20/17) Right knee arthroscopy with medial femoral chondroplasty and limited microfracture. Removal of fixed loose body, notch right knee. Chondroplasty patella. Status post bilateral salpingectomy (~05/1999) Status post Anival fundoplication (12/18/07) Family History Mother Essential hypertension Heart disease Hyperlipidemia Breast cancer Type 2 diabetes mellitus Father , at 76 from dementia Alzheimer's dementia Sister Depression Brother No problems noted. Maternal Grandfather , at 62 of HI Heart disease Myocardial infarction Type 2 diabetes mellitus Maternal Grandmother , at 92 of stroke Stroke Heart disease Paternal Grandfather , at 63 Type 2 diabetes mellitus Heart disease Paternal Grandmother , at 74 of breast cancer Breast cancer Social History Smoking/Tobacco Use Status: Never Smoking risk assessment performed?: Yes Alcohol Intake: never Drug use: Never Substance use type: does not use Adopted: No Caregiver/Support person: No Household members: family Housing: house current occupation: HOMEMAKER Pets and animals: Yes Pets and animals: other Details: RABBIT Sexually active: No Do you think of yourself as: straight/heterosexual Current gender identity: female What is your relationship status?: How often do you talk on the phone with friends or family?: never How often do you get together with friends or relatives?: decline to answer How often do you attend scientologist or gnosticist services?: decline to answer Do you belong to any clubs or organized social groups?: no Panel score (0-1 are the most socially isolated patients): 0 What type of physical activity do you participate in: decline to answer Duration: < 15 minutes/day Frequency: decline to answer Grace/Anabaptist: Christianity Special grace needs: No Seatbelt use: always Drive intox or ride w/intox national van truck driver: No Working smoke detector in home: Yes Fire extinguisher in home: Yes Carbon monox detector in home: Yes Firearms in home: No Do you feel safe at home: Yes Do you feel safe in your relationship?: Yes Female Reproductive History Menstrual Menopause type: surgical History History 0 Para Hx # Term Pregnancies Multiple births Hx # Pregnancies Ectopic pregnancies AB induced Hx Number of Living Children AB spontaneous Exam Const General: cooperative, healthy appearing, comfortable, no acute distress, well developed and well groomed Nutritional Appearance: well nourished and overweight Orientation: alert, awake and oriented x3 HENMT Head: normal to inspection, no palpable skull fracture, normocephalic and atraumatic Ears: hearing grossly normal bilaterally, external ears normal and TM's normal bilaterally General nose exam: external nose normal Mouth: oral mucosae normal and moist mucous membranes Throat: posterior oropharynx normal Eyes General: appearance normal, both eyes and all related structures Alignment and Position: alignment normal Periorbital: periorbital findings normal Eyelids: eyelids normal Sclera: sclerae normal Cornea: corneas normal Pupils: PERRL EOM: EOM intact bilaterally Neck Neck: normal visual inspection, full ROM, no lymphadenopathy and no meningeal signs Resp Effort & Inspection: normal respiratory effort, able to speak in complete sentences and no respiratory distress Auscultation: clear to auscultation bilaterally, no rales, no rhonchi and no wheezes Cardio Rate: regular rate Rhythm: regular rhythm Heart Sounds: S1 normal and S2 normal Back/Spine/Pelvis Cervical Spine: normal cervical lordosis and cervical ROM normal Skin General skin exam: no rashes or lesions noted Neuro General: patient alert, patient awake and patient oriented x3 Cranial Nerves: CN's II-XI intact bilaterally Cognition: normal cognition Speech: speech normal Gait: normal gait Motor: muscle tone normal throughout, strength 5/5 throughout, no pronator drift, no movement abnormalities noted and no fasciculations Sensory Exam: no sensory deficits noted Extrem General: normal to inspection, capillary refill normal, no pedal edema and no calf tenderness Psych Appearance: grossly normal and well kempt Mental Status: mental status grossly normal Speech and Movement: speech and movement normal Course Vital Signs Vital signs: Vital Signs Temperature 36.7 C 12/11/20 16:35 Pulse 62 12/11/20 16:35 Respiratory Rate 18 12/11/20 16:35 Blood Pressure 135/78 12/11/20 16:35 Pulse Oximetry 95 12/11/20 16:35 Temperature 36.7 C 12/11/20 16:35 Temperature Source Skin 12/11/20 16:35 Pulse 62 12/11/20 16:35 Respiratory Rate 18 12/11/20 16:35 Blood Pressure 135/78 12/11/20 16:35 Pulse Oximetry 95 12/11/20 16:35 Oxygen Delivery Method Room Air 12/11/20 16:35 Oxygen Flow Rate 0 12/11/20 16:35 Pain Level 8 12/11/20 16:35
[2020-12-11] MEDS: Normal Saline 1,000 ML 1000 ML IV (17:16)
[2020-12-11] MEDS: Ketorolac 30 MG/ML VIAL IVP (17:16)
[2020-12-11] MEDS: diphenhydrAMINE 50 MG/ML VIAL 25 MG IVP (17:16)
[2020-12-11] MEDS: Metoclopramide 10 MG/2 ML VIAL IVP (17:16)
== END 2020-12-11 18:40 | disposition home or self-care (01) ==
PROVIDERS: Emergency Provider Physician Assistant; PCP Nurse Practitioner Family
DX: R51.9 Headache, unspecified (principal)
CPT/HCPCS: 36415; 96361; 96374; 96375; 99284; 99283; J1200; J1885; J2765

== ENCOUNTER 2021-01-01 01:17 | Outpatient (CLI) | payer MEDICAID, SELFPAY ==
--- NOTE | 2021-01-01 13:00 | NS.NUTBLAN_ITS ---
Dianna was referred to Medical Nutrition Therapy for weight management. 5'4 250 lbs, BMI 42. PMH: sleep apnea, GERD, HLD, IBW, asthma. 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 She follows gluten free diet, she is gluten intolerant as celiac dx previously ruled out. Food record indicates mostly well balanced home made meals, no convenience foods and only sugar free beverages. She does rely on processed gluten free products such as muffins, wraps and cookies. She eats popcorn daily. Session today focused on how to follow a lower carb, higher protein meal plan - [id number] kcal, 80-100 g carb, 60-70 g protein, 45-55 g fat. Adjusted meal plans to meet decreased reliance on carb containing foods by increasing protein and non starchy vegetables. Dianna also wants to start walking daily of 20 minutes. Dianna was agreeable to changes in meal plan and wants to follow up in 3 weeks to assess diet tolerance and weight loss. Follow up appt. 01/22/21 at 1 pm
== END 2021-01-01 01:18 | disposition home or self-care (01) ==
LOC: DS 01:18
PROVIDERS: PCP Nurse Practitioner Family; Visit Provider Dietitian, Registered
DX: E66.8 Other obesity (principal); E78.5 Hyperlipidemia, unspecified; K21.9 Gastro-esophageal reflux disease without esophagitis; Z68.41 Body mass index [BMI] 40.0-44.9, adult; Z71.3 Dietary counseling and surveillance
CPT/HCPCS: 97802

== ENCOUNTER 2021-01-05 04:41 | Outpatient (CLI) | payer MEDICAID, SELFPAY ==
[2021-01-05 12:45] LABS: HCT 42.2 % (36.0-46.0); HGB 13.4 g/dL (11.2-15.7); MCH 29.4 pg (27.0-33.0); MCHC 31.8 % (32.0-36.0); MCV 92.5 fL (80-95); MPV 10.3 fL (8.0-11.0); Platelet Count 210 10^3/uL (130-400); RBC 4.56 10^6/uL (3.93-5.22); RDW 11.7 % (11.7-14.6); RDW-SD 39.8 fL; WBC 5.18 10^3/uL (4.4-10.8)
== END 2021-01-05 04:42 | disposition home or self-care (01) ==
LOC: LOS 04:42
PROVIDERS: PCP Nurse Practitioner Family; Visit Provider Dermatology
DX: L28.0 Lichen simplex chronicus (principal); L30.8 Other specified dermatitis
CPT/HCPCS: 36415; 85027

== ENCOUNTER 2021-01-22 01:00 | Outpatient (CLI) | payer MEDICAID, SELFPAY ==
--- NOTE | 2021-01-22 13:00 | NS.NUTBLAN_ITS ---
Dianna returns for follow up visit for weight management. Wt: 252 lbs, no change in weight. Dianna has logged her food and is counting carbohydrates and following recommendation of limiting simple sugars and following a [id number] kcal, 80-100 g carbohydrate and 60-70 g protein. She reports walking daily 20 minutes until [place] Reviewed and adjusted meal for increased varity and encouraged Dianna to call PCP to have ankle evaluated as she reports extreme pain when walking and 5 days of pain. At this time, she is doing well with meal plan and expect weight loss if able to increase her exercise. Once ankle is pain free, recommend 20 minutes of walking twice daily. No follow up planned at this time.
== END 2021-01-22 01:01 | disposition home or self-care (01) ==
LOC: DS 01:00
PROVIDERS: PCP Nurse Practitioner Family; Visit Provider Dietitian, Registered
DX: E66.8 Other obesity (principal); Z71.3 Dietary counseling and surveillance
CPT/HCPCS: 97803

== ENCOUNTER 2021-01-22 13:50 | Outpatient (CLI) | payer MEDICAID, SELFPAY ==
--- NOTE | 2021-01-22 14:15 | DI.RAD_ITS ---
Exam(s) XR FOOT LT COMPLETE EXAM: XR FOOT LT COMPLETE CLINICAL HISTORY: left foot pain, lt ankle pain, M25.572. TECHNIQUE: 2D digital imaging was performed. COMPARISON: No exams were available for comparison FINDINGS: BONES: No acute fracture is present. No bony destructive lesion is seen. Heel spurs. JOINTS: No dislocation present. Mild intertarsal degenerative changes. MTP joints are unremarkable. SOFT TISSUE: Normal. IMPRESSION: Mild intertarsal degenerative changes and heel spurs. DATA REPOSITORY: RADIATION DOSE DELIVERED:
--- NOTE | 2021-01-22 14:15 | DI.RAD_ITS ---
Exam(s) XR ANKLE LT COMPLETE EXAM: XR ANKLE LT COMPLETE CLINICAL HISTORY: left foot pain, lt ankle pain, M25.572 TECHNIQUE: 2D digital imaging was performed. COMPARISON: CR XR ANKLE LT COMPLETE from 01/30/2018 FINDINGS: BONES: No acute fracture is present. No bony destructive lesion is seen. Plantar calcaneal spur. Min imal spurring tip of the malleoli. JOINTS:The ankle mortise is normally aligned. Spurring talonavicular joint. SOFT TISSUE: Normal. IMPRESSION: Degenerative changes and heel spur. DATA REPOSITORY: RADIATION DOSE DELIVERED:
== END 2021-01-22 14:10 ==
PROVIDERS: PCP Nurse Practitioner Family; Visit Provider Family Medicine
DX: M25.572 Pain in left ankle and joints of left foot (principal); M77.32 Calcaneal spur, left foot
CPT/HCPCS: 73610; 73630

== ENCOUNTER 2021-07-15 04:21 | Outpatient (CLI) | payer MEDICAID, SELFPAY ==
[2021-07-15 10:21] LABS: Abs Immature Grans 0.02 10^3/uL (0.0-0.06); Absolute Basophil Count 0.02 10^3/uL (0.0-0.2); Absolute Eosinophil Count 0.16 10^3/uL (0.0-0.7); Absolute Lymphocyte Count 1.07 10^3/uL (1.2-3.4); Absolute Monocyte Count 0.21 10^3/uL (0.1-0.8); Basophils % 0.5; Eosinophils % 3.8; HCT 36.4 % (36.0-46.0); HGB 11.7 g/dL (11.2-15.7); Immature Grans % 0.5; Lymphocytes % 25.6; MCH 30.3 pg (27.0-33.0); MCHC 32.1 % (32.0-36.0); MCV 94.3 fL (80-95); MPV 10.9 fL (8.0-11.0); Neutrophils % 64.6; Nucleated RBC 0 %; Platelet Count 206 10^3/uL (130-400); RBC 3.86 10^6/uL (3.93-5.22); RDW 12.4 % (11.7-14.6); RDW-SD 42.9 fL; WBC 4.18 10^3/uL (4.4-10.8)
[2021-07-15 11:21] LABS: ALT 27 U/L (14-59); AST 19 U/L (15-37); Albumin 3.9 g/dL (3.4-5.0); Alkaline Phosphatase 85 U/L (46-116); Anion Gap 6.3 mmol/L (3-11); BUN 23 mg/dL (7-18); Bilirubin, Total 0.4 mg/dL (0.2-1.0); CO2 27.7 mmol/L (21.0-32.0); CREATININE 0.8 mg/dL (0.55-1.02); Chloride 108 mmol/L (98-107); Glucose 95 mg/dL (74-106); Potassium 4.5 mmol/L (3.5-5.1); Sodium 142 mmol/L (136-145); Total Protein 6.6 g/dL (6.4-8.2)
[2021-07-15 12:22] LABS: Hemoglobin A1C 4.6 % (<5.7)
[2021-07-15 22:21] LABS: Lab Add On Test DONE
== END 2021-07-15 04:22 | disposition home or self-care (01) ==
LOC: LBO 04:21
PROVIDERS: PCP Nurse Practitioner Family; Visit Provider Internal Medicine Rheumatology
DX: E66.9 Obesity, unspecified (principal); H20.9 Unspecified iridocyclitis
CPT/HCPCS: 36415; 80053; 83036; 85025

== ENCOUNTER 2021-07-28 02:41 | Outpatient (CLI) | payer MEDICAID, SELFPAY ==
[2021-07-28 13:44] LABS: Abs Immature Grans 0.02 10^3/uL (0.0-0.06); Absolute Basophil Count 0.02 10^3/uL (0.0-0.2); Absolute Eosinophil Count 0.13 10^3/uL (0.0-0.7); Absolute Lymphocyte Count 1.32 10^3/uL (1.2-3.4); Absolute Monocyte Count 0.23 10^3/uL (0.1-0.8); Absolute Neutrophil Count 4.38 10^3/uL (1.2-6.7); Basophils % 0.3; Eosinophils % 2.1; HCT 38.1 % (36.0-46.0); HGB 11.8 g/dL (11.2-15.7); Immature Grans % 0.3; Lymphocytes % 21.6; MCH 29.8 pg (27.0-33.0); MCV 96.2 fL (80-95); MPV 10.6 fL (8.0-11.0); Monocytes % 3.8; Neutrophils % 71.9; Nucleated RBC 0 %; Platelet Count 197 10^3/uL (130-400); RBC 3.96 10^6/uL (3.93-5.22); RDW 12.6 % (11.7-14.6); RDW-SD 44.6 fL
[2021-07-28 14:34] LABS: ALT 36 U/L (14-59); AST 24 U/L (15-37); Albumin 4.1 g/dL (3.4-5.0); Alkaline Phosphatase 68 U/L (46-116); Anion Gap 6.7 mmol/L (3-11); BUN 19 mg/dL (7-18); Bilirubin, Total 0.5 mg/dL (0.2-1.0); CO2 27.3 mmol/L (21.0-32.0); CREATININE 0.9 mg/dL (0.55-1.02); Calcium 8.9 mg/dL (8.5-10.1); Chloride 106 mmol/L (98-107); Glucose 124 mg/dL (74-106); Potassium 4.3 mmol/L (3.5-5.1); Sodium 140 mmol/L (136-145); Total Protein 6.7 g/dL (6.4-8.2)
== END 2021-07-28 02:42 | disposition home or self-care (01) ==
LOC: LBO 02:41
PROVIDERS: PCP Nurse Practitioner Family; Visit Provider Internal Medicine Rheumatology
DX: L30.8 Other specified dermatitis (principal)
CPT/HCPCS: 36415; 80053; 85025

== ENCOUNTER 2021-09-22 22:48 | Emergency (ER) | payer MEDICAID, SELFPAY ==
[2021-09-22 22:43] VITALS: PULSE 61; RESP 18; TEMP 36.3; O2SAT 100
[2021-09-22 22:46] VITALS: RESP 18
--- NOTE | 2021-09-22 22:49 | ED.GENADUL_ITS ---
Discharge Plan Disposition Patient Disposition: HOME Discharge Details Clinical Impression: Migraine headache Primary Care Provider: Jacquelin Skaggs ED Provider: Solitario Guo Home Meds and New Rx's Prescriptions: No Action sumatriptan succinate 50 mg tablet 50 mg PO ONCE PRN (Reason: migraine headache) Qty: 60 1RF Rx Instructions: take 1 tab as needed for migraines. may repeat in 2 hours if no relief. No more than 4 tab in 24 hours. Humira 40 mg/0.8 mL syringe kit 40 mg SC Q14D 0RF Label Comments: Prescribed by rheumatology celecoxib [Celebrex] 100 mg capsule 100 mg PO BID PRN0RF Label Comments: Prescribed by Dr. Garcia cholecalciferol (vitamin D3) 50 mcg (2,000 unit) capsule 2,000 unit PO DAILY Qty: 90 4RF hydroxychloroquine 200 MG tablet 400 mg PO DAILY 0RF Rx Instructions: EDITH dapsone 25 mg tablet 25 mg PO DAILY 0RF Latuda 20 mg tablet 20 mg PO DAILY 0RF sertraline 100 mg tablet 200 mg PO DAILY 0RF dicyclomine 10 mg capsule 10 mg PO TID PRN (Reason: IBS) Qty: 90 4RF albuterol sulfate [ProAir HFA] 90 mcg/actuation HFA aerosol inhaler 2 puff Inhalation Q4H PRN Qty: 3 3RF albuterol sulfate 2.5 mg/0.5 mL solution for nebulization 2.5 mg Inhalation QID PRN (Reason: shortness of breath or wheezing) Qty: 90 4RF budesonide-formoterol [Symbicort] 160-4.5 mcg/actuation HFA aerosol inhaler 2 puff inhalation BID Qty: 10.2 4RF fluticasone propionate 50 mcg/actuation spray,suspension 2 spray NS DAILY PRN (Reason: allergy symptoms) Qty: 18.2 4RF Rx Instructions: 2 sprays into each nostril once a day as needed for allergies cetirizine [Zyrtec] 10 mg tablet 10 mg PO DAILY PRN (Reason: allergy symptoms) Qty: 90 4RF Discharge Instructions Additional Instructions: Please continue taking your regular medications and hydrate yourself well. Please follow-up with your primary care doctor Medical Decision Making Patient comes to the emergency department complaining of recurrent migraine. She actually presents to the ED migraine frequency after having taken her Imitrex. She is complaining of mild nausea. Her neuro exam is normal. At this time I do not have much to offer other than an antiemetic. Patient doing well HPI General Date/Time Provider Initiated Documentation: 09/22/21 22:49 . HPI Narrative: 51-year-old woman presents to the earlier of moderate to severe intensity, generalized. No radiation of pain. Relieved with her medications. No exacerbatinga recurrent migraine. States that the migraine started slowly today got to the point that she needs to take. Imitrex. She arrives to the emergency department with a migraine for still nauseous. She states she was also nauseous with both a migraine and had 1 episode of emesis. No head trauma. No visual changes. No neurological complaints. She states that she gets migraines approximately every 3 months. She does not know what the triggers does may be some stress. Related Data Home Medications Medication Instructions Recorded Confirmed hydroxychloroquine 200 mg tablet 400 mg PO DAILY tab-cap 11/13/14 09/22/21 adalimumab 40 mg/0.8 mL 40 mg SC Q14D 07/05/18 09/22/21 subcutaneous syringe kit (Humira) celecoxib 100 mg capsule (Celebrex) 100 mg PO BID PRN 10/17/19 09/22/21 dapsone 25 mg tablet 25 mg PO DAILY tab 04/29/20 09/22/21 lurasidone 20 mg tablet (Latuda) 20 mg PO DAILY 10/22/20 09/22/21 sertraline 100 mg tablet 200 mg PO DAILY tab 10/22/20 09/22/21 cholecalciferol (vitamin D3) 50 2,000 unit PO DAILY #90 cap 12/10/20 09/22/21 mcg (2,000 unit) capsule dicyclomine 10 mg capsule 10 mg PO TID PRN #90 tab-cap 04/14/21 09/22/21 albuterol sulfate 90 mcg/actuation 2 puff INHALATION Q4H PRN #3 05/12/21 2 aerosol inhaler (ProAir HFA) inhaler albuterol sulfate 2.5 mg/0.5 mL 2.5 mg (0.5 mL) INHALATION QID PRN 06/18/21 09/22/21 solution for nebulization #90 ea sumatriptan succinate 50 mg tablet 50 mg PO ONCE PRN #60 tab 07/15/21 09/22/21 budesonide-formoterol HFA 160 2 puff INHALATION BID #10.2 g 08/23/21 09/22/21 mcg-4.5 mcg/actuation aerosol inhaler (Symbicort) cetirizine 10 mg tablet (Zyrtec) 10 mg PO DAILY PRN #90 tab 08/23/21 09/22/21 fluticasone propionate 50 2 spray NS DAILY PRN #18.2 gm 08/23/21 09/22/21 mcg/actuation nasal spray,suspension Previous Rx's Medication Instructions Recorded cholecalciferol (vitamin D3) 50 2,000 unit PO DAILY #90 cap 12/10/20 mcg (2,000 unit) capsule dicyclomine 10 mg capsule 10 mg PO TID PRN #90 tab-cap 04/14/21 albuterol sulfate 90 mcg/actuation 2 puff INHALATION Q4H PRN #3 05/12/21 aerosol inhaler (ProAir HFA) inhaler albuterol sulfate 2.5 mg/0.5 mL 2.5 mg (0.5 mL) INHALATION QID PRN 06/18/21 solution for nebulization #90 ea sumatriptan succinate 50 mg tablet 50 mg PO ONCE PRN #60 tab 07/15/21 budesonide-formoterol HFA 160 2 puff INHALATION BID #10.2 g 08/23/21 mcg-4.5 mcg/actuation aerosol inhaler (Symbicort) cetirizine 10 mg tablet (Zyrtec) 10 mg PO DAILY PRN #90 tab 08/23/21 fluticasone propionate 50 2 spray NS DAILY PRN #18.2 gm 08/23/21 mcg/actuation nasal spray,suspension Allergies Allergy/AdvReac Type Severity Reaction Status Date / Time benzonatate Allergy Severe rash Verified 09/22/21 22:48 [From Amando Denise] codeine Allergy Unknown SKIN RASH Verified 09/22/21 22:48 Penicillins Allergy Unknown SKIN RASH Verified 09/22/21 22:48 Sulfa (Sulfonamide Allergy Unknown SKIN RASH Verified 09/22/21 22:48 Antibiotics) doxycycline Allergy RASH Verified 09/22/21 22:48 adhesive AdvReac Severe SKIN Verified 09/22/21 22:48 BREAKDOWN montelukast AdvReac Mild NAUSEA, Verified 09/22/21 22:48 VOMITING, DIARRHEA General Stated Complaint: GenMedical DONNA: 4 Review of Systems Narrative: Constitutional:?Reports as per HPI, Denies chills, Reports fatigue, Denies fever(s), Reports headache(s) and Denies weakness Eyes Eyes:?Reports as per HPI, Denies blurry vision, Denies change in vision and Reports photophobia ENT Ears, Nose, Mouth, and Throat:?Denies vertigo, Reports headache(s) and Denies neck pain Cardiovascular Cardiovascular:?Reports as per HPI, Denies chest pain, Denies lightheadedness and Denies dyspnea Respiratory Respiratory:?Reports as per HPI, Denies chest congestion, Denies cough and Denies dyspnea Gastrointestinal Gastrointestinal:?Reports as per HPI, Denies change in bowel habits Musculoskeletal Musculoskeletal:?Reports as per HPI, Denies back pain and Denies neck pain Integumentary/Breasts Skin/Breast:? Denies rash Neurologic Neurologic:?Reports as per HPI, Denies abnormal movements, Denies abnormal speech, Denies behavioral changes, Denies confusion, Denies vertigo, Reports headache(s), Denies localized weakness, Denies sensory deficit and Denies weakness Psychiatric Psychiatric:?Denies behavioral changes and Denies confusion Endocrine Endocrine:?Reports fatigue PFSH All Active Problems (Updated 09/22/21 @ 23:22 by Solitario Guo MD) Obstructive sleep apnea syndrome (Chronic) Central sleep apnea (Chronic) Moderate persistent asthma (Chronic) Palisaded neutrophilic and granulomatous dermatitis (Chronic) Per biopsy Hyperlipidemia (Chronic) Depressive disorder (Chronic) Generalized anxiety disorder (Chronic) Irritable bowel syndrome (Chronic) Gluten intolerance (Chronic) Tissue Transglutamin IgA, Gliadin IgG and IgA, endomysial IgA negative 11/2007 Skin biopsies negative for DH Primary osteoarthritis of right knee (Chronic) Obesity (Chronic) Migraine headache (Chronic) Medical History (Updated 09/22/21 @ 23:22 by Solitario Guo MD) GERD (gastroesophageal reflux disease) Vitamin D deficiency Surgical History History of carpal tunnel surgery Bilateral S/P cholecystectomy (08/16/16) S/P laparoscopic hysterectomy (~05/1999) at [facility] for endometriosis S/P right knee arthroscopy (01/20/17) Right knee arthroscopy with medial femoral chondroplasty and limited microfracture. Removal of fixed loose body, notch right knee. Chondroplasty patella. Status post bilateral salpingectomy (~05/1999) Status post Anival fundoplication (12/18/07) Family History (Updated 07/15/21 @ 13:45 by Jacquelin Skaggs NP) Mother Essential hypertension Heart disease Hyperlipidemia Breast cancer Type 2 diabetes mellitus Father , at 76 from dementia Alzheimer's dementia Stroke Sister Depression Diabetes Brother No problems noted. Maternal Grandfather , at 62 of [place] Heart disease Myocardial infarction Type 2 diabetes mellitus Maternal Grandmother , at 92 of stroke Stroke Heart disease Paternal Grandfather , at 63 Type 2 diabetes mellitus Heart disease Paternal Grandmother , at 74 of breast cancer Breast cancer Social History (Updated 07/17/21 @ 11:56 by Paloma Givens) Smoking/Tobacco Use Status: Never Second Hand Exposure: Yes Smoking risk assessment performed?: Yes Alcohol Intake: never Drug use: Never Substance use type: does not use Adopted: No Caregiver/Support person: No Household members: family Housing: house current occupation: HOMEMAKER Pets and animals: Yes Pets and animals: other Details: RABBIT Sexually active: No Do you think of yourself as: straight/heterosexual Current gender identity: female What is your relationship status?: How often do you talk on the phone with friends or family?: three or more times per week How often do you get together with friends or relatives?: three or more times per week Do you belong to any clubs or organized social groups?: no Panel score (0-1 are the most socially isolated patients): 1 What type of physical activity do you participate in: walking Duration: < 15 minutes/day Special khadijah needs: No Seatbelt use: always Drive intox or ride w/intox drivers license examiner: No Working smoke detector in home: Yes Fire extinguisher in home: Yes Carbon monox detector in home: Yes Firearms in home: No Do you feel safe at home: Yes Do you feel safe in your relationship?: Yes Female Reproductive History Menstrual Menopause type: surgical History History 0 Para Hx # Term Pregnancies Multiple births Hx # Pregnancies Ectopic pregnancies AB induced Hx Number of Living Children AB spontaneous Exam Narrative Exam Narrative: Const General:?cooperative, high BMI, comfortable, no acute distress, well groomed Orientation:?alert, awake and oriented x3 HEENT Head:?normal to inspection, no palpable skull fracture, normocephalic and atraumatic Ears:?hearing grossly normal bilaterally, external ears normal General nose exam:?external nose normal Mouth:?oral mucosae normal and moist mucous membranes Eyes General:?appearance normal, both eyes and all related structures Alignment and Position:?alignment normal Periorbital:?periorbital findings normal Eyelids:?eyelids normal Sclera:?sclerae normal Cornea:?corneas normal Pupils:?PERRL EOM:?EOM intact bilaterally Neck Neck:?normal visual inspection, full ROM, no lymphadenopathy and no meningeal signs Resp Effort & Inspection:?normal respiratory effort, able to speak in complete sentences and no respiratory distress Auscultation:?clear to auscultation bilaterally, no rales, no rhonchi and no wheezes Cardio Rate:?regular rate Rhythm:?regular rhythm Heart Sounds:?S1 normal and S2 normal Back/Spine/Pelvis Cervical Spine:?normal cervical lordosis and cervical ROM normal Skin General skin exam:?no rashes or lesions noted Neuro General:?patient alert, patient awake and patient oriented x3 Cranial Nerves:?CN's II-XI intact bilaterally Cognition:?normal cognition Speech:?speech normal Gait:?normal gait Motor:?muscle tone normal throughout, strength 5/5 throughout, no pronator drift, no movement abnormalities noted and no fasciculations Sensory Exam:?no sensory deficits noted Extrem General:?normal to inspection, capillary refill normal, no pedal edema and no calf tenderness Psych Appearance:?grossly normal and well kempt Mental Status:?mental status grossly normal Speech and Movement:?speech and movement normal Course Vital Signs Vital signs: Vital Signs Temperature 36.3 C L 09/22/21 22:43 Pulse 61 09/22/21 22:43 Respiratory Rate 18 09/22/21 22:43 Pulse Oximetry 100 09/22/21 22:43 Temperature 36.3 C L 09/22/21 22:43 Pulse 61 09/22/21 22:43 Respiratory Rate 18 09/22/21 22:46 Respiratory Effort 09/22/21 22:46 Respiratory Depth Normal 09/22/21 22:46 Respiratory Pattern Normal 09/22/21 22:46 Blood Pressure Position Supine 09/22/21 22:43 Pulse Oximetry 100 09/22/21 22:43 Oxygen Delivery Method Room Air 09/22/21 22:43 Oxygen Flow Rate 0 09/22/21 22:43 Pain Level 0 09/22/21 22:43
[2021-09-22] MEDS: Ondansetron O.D.T. 4 MG TABEF PO (23:19)
[2021-09-22 23:22] VITALS: PULSE 72; RESP 18; O2SAT 100
== END 2021-09-22 23:25 | disposition home or self-care (01) ==
LOC: ER 23:30
PROVIDERS: Emergency Provider Emergency Medicine; PCP Nurse Practitioner Family
DX: G43.909 Migraine, unspecified, not intractable, without status migrainosus (principal)
CPT/HCPCS: 99283

== ENCOUNTER 2021-09-23 13:57 | Outpatient (CLI) | payer MEDICAID, SELFPAY ==
--- NOTE | 2021-09-23 13:45 | RT.EKG_ITS ---
APPROVED REPORT Exam: Resting ECG Reason for Exam: chest discomfort Patient Location: O HR:62 bpm ECG Measurements Heart Rate 62 AXIS NH 135 P 46 QRSd 97 QRS 11 QT 419 T 66 QTc 427 Conclusion Sinus rhythm...normal P axis, V-rate 60- 99 Low voltage, precordial leads...precordial leads <1.0mV Normal Electrocardiogram
== END 2021-09-23 13:58 | disposition home or self-care (01) ==
LOC: DI.CM 13:58
PROVIDERS: PCP Nurse Practitioner Family; Visit Provider Physician Assistant
DX: R07.89 Other chest pain (principal)
CPT/HCPCS: 93010

== ENCOUNTER 2021-11-12 02:42 | Outpatient (CLI) | payer MEDICAID, SELFPAY ==
[2021-11-12 13:09] LABS: Anion Gap 8.3 mmol/L (3-11); BUN 26 mg/dL (7-18); CO2 25.7 mmol/L (21.0-32.0); CREATININE 0.8 mg/dL (0.55-1.02); Calcium 8.9 mg/dL (8.5-10.1); Calculated LDL 120 mg/dL (<100); Chloride 106 mmol/L (98-107); Cholesterol 195 mg/dL (<200); Glucose 90 mg/dL (74-106); HDL Cholesterol 68 mg/dL (40-60); Sodium 140 mmol/L (136-145); Triglyceride 37 mg/dL (<150)
[2021-11-12 13:44] LABS: Hemoglobin A1C < 4.5 % (<5.7)
== END 2021-11-12 02:43 | disposition home or self-care (01) ==
LOC: LOS 02:42
PROVIDERS: PCP Nurse Practitioner Family; Visit Provider Family Medicine
DX: I10 Essential (primary) hypertension (principal); E78.5 Hyperlipidemia, unspecified; R73.01 Impaired fasting glucose; E66.01 Morbid (severe) obesity due to excess calories
CPT/HCPCS: 36415; 80048; 80061; 83036

== ENCOUNTER 2021-11-13 17:13 | Emergency (ER) | payer MEDICAID, SELFPAY ==
[2021-11-13 17:16] VITALS: BP 140/69; PULSE 67; RESP 18; TEMP 36.5; O2SAT 96
--- NOTE | 2021-11-13 17:31 | ED.GENADUL_ITS ---
Discharge Plan Disposition Patient Disposition: HOME Condition: Improving Discharge Details Clinical Impression: Allergic dermatitis Primary Care Provider: Jacquelin Skaggs ED Provider: Valentín Gallegos Home Meds and New Rx's Prescriptions: New prednisone 20 mg tablet 40 mg PO DAILY 4 Days Qty: 8 0RF Continued ondansetron HCl 4 mg tablet 4 mg PO Q8H PRN (Reason: nausea and vomiting) Qty: 10 0RF Humira 40 mg/0.8 mL syringe kit 40 mg SC Q14D Label Comments: Prescribed by rheumatology celecoxib [Celebrex] 100 mg capsule 100 mg PO BID PRN Label Comments: Prescribed by Dr. Garcia cholecalciferol (vitamin D3) 50 mcg (2,000 unit) capsule 2,000 unit PO DAILY Qty: 90 4RF sumatriptan succinate 100 mg tablet 100 mg PO ONCE PRN (Reason: migraine headache) Qty: 9 1RF Rx Instructions: take 1 tab as needed for migraines. may repeat in 2 hours if no relief. No more than 4 tab in 24 hours. lisinopril 5 mg tablet 5 mg PO HS Qty: 30 1RF hydroxychloroquine 200 MG tablet 400 mg PO DAILY Rx Instructions: EDITH dapsone 25 mg tablet 25 mg PO DAILY Latuda 20 mg tablet 20 mg PO DAILY sertraline 100 mg tablet 200 mg PO DAILY dicyclomine 10 mg capsule 10 mg PO TID PRN (Reason: IBS) Qty: 90 4RF albuterol sulfate [ProAir HFA] 90 mcg/actuation HFA aerosol inhaler 2 puff Inhalation Q4H PRN Qty: 3 3RF albuterol sulfate 2.5 mg/0.5 mL solution for nebulization 2.5 mg Inhalation QID PRN (Reason: shortness of breath or wheezing) Qty: 90 4RF budesonide-formoterol [Symbicort] 160-4.5 mcg/actuation HFA aerosol inhaler 2 puff inhalation BID Qty: 10.2 4RF fluticasone propionate 50 mcg/actuation spray,suspension 2 spray NS DAILY PRN (Reason: allergy symptoms) Qty: 18.2 4RF Rx Instructions: 2 sprays into each nostril once a day as needed for allergies cetirizine [Zyrtec] 10 mg tablet 10 mg PO DAILY PRN (Reason: allergy symptoms) Qty: 90 4RF Discharge Instructions Additional Instructions: May take Benadryl 25 mg at bedtime for its antihistamine effects. Take prednisone once daily until finished. Continue your normal routine and medications. Return to the ER for any acute concern Medical Decision Making This is a 51-year-old female who went to [facility] for uneventful steroid injection of the left foot 3 days ago. She now has 2 days of left anterior thigh rash. It appears most consistent with a plant dermatitis but there is no clear inciting exposure per the patient. I do not feel this is related to her left foot injections. We will treat with a burst of prednisone and antihista mine at home. She understands home care and indications to seek reevaluation HPI General Mode of arrival: ambulatory . Date/Time Provider Initiated Documentation: 11/13/21 17:13 . Limitations to Documentation: no limitations . Information obtained by: patient . History of Present Illness 51 year old F presents to the emergency department with the chief complaint of Left distal thigh itching rash, described as mild, Quality is described as dull and constant, and is localized to the left and lower extremity. Patient reports no radiation. Patient started experiencing this day(s) and it has been constant. No relieving factors improve symptom(s), No exacerbating factors reported . Patient notes rash; denies fever/chills. Patient did receive the following treatments prior to arrival, none Related Data Home Medications Medication Instructions Recorded Confirmed hydroxychloroquine 200 mg tablet 400 mg PO DAILY 11/13/14 10/19/21 adalimumab 40 mg/0.8 mL 40 mg subcut Q14D 07/05/18 10/19/21 subcutaneous syringe kit (Humira) celecoxib 100 mg capsule (Celebrex) 100 mg PO BID PRN 10/17/19 10/19/21 dapsone 25 mg tablet 25 mg PO DAILY 04/29/20 10/19/21 lurasidone 20 mg tablet (Latuda) 20 mg PO DAILY 10/22/20 10/19/21 sertraline 100 mg tablet 200 mg PO DAILY 10/22/20 10/19/21 cholecalciferol (vitamin D3) 50 2,000 unit PO DAILY #90 caps 12/10/20 10/19/21 mcg (2,000 unit) capsule dicyclomine 10 mg capsule 10 mg PO TID PRN IBS #90 tab-caps 04/14/21 10/19/21 albuterol sulfate 90 mcg/actuation 2 puff inhalation Q4H PRN ##3 05/12/21 10/19/21 aerosol inhaler (ProAir HFA) albuterol sulfate 2.5 mg/0.5 mL 2.5 mg (0.5 mL) inhalation QID PRN 06/18/21 10/19/21 solution for nebulization shortness of breath or wheezing #90 ea budesonide-formoterol HFA 160 2 puff inhalation BID #10.2 grams 08/23/21 10/19/21 mcg-4.5 mcg/actuation aerosol inhaler (Symbicort) cetirizine 10 mg tablet (Zyrtec) 10 mg PO DAILY PRN allergy 08/23/21 10/19/21 symptoms #90 tabs fluticasone propionate 50 2 spray NS DAILY PRN allergy 08/23/21 10/19/21 mcg/actuation nasal symptoms #18.2 grams spray,suspension ondansetron HCl 4 mg tablet 4 mg PO Q8H PRN nausea and 09/23/21 10/19/21 vomiting #10 tabs sumatriptan succinate 100 mg tablet 100 mg PO ONCE PRN migraine 09/29/21 10/19/21 headache #9 tabs lisinopril 5 mg tablet 5 mg PO HS #30 tabs 10/19/21 10/19/21 prednisone 20 mg tablet 40 mg PO DAILY 4 days #8 tabs 11/13/21 Previous Rx's Medication Instructions Recorded cholecalciferol (vitamin D3) 50 2,000 unit PO DAILY #90 caps 12/10/20 mcg (2,000 unit) capsule dicyclomine 10 mg capsule 10 mg PO TID PRN IBS #90 tab-caps 04/14/21 albuterol sulfate 90 mcg/actuation 2 puff inhalation Q4H PRN ##3 05/12/21 aerosol inhaler (ProAir HFA) albuterol sulfate 2.5 mg/0.5 mL 2.5 mg (0.5 mL) inhalation QID PRN 06/18/21 solution for nebulization shortness of breath or wheezing #90 ea budesonide-formoterol HFA 160 2 puff inhalation BID #10.2 grams 08/23/21 mcg-4.5 mcg/actuation aerosol inhaler (Symbicort) cetirizine 10 mg tablet (Zyrtec) 10 mg PO DAILY PRN allergy 08/23/21 symptoms #90 tabs fluticasone propionate 50 2 spray NS DAILY PRN allergy 08/23/21 mcg/actuation nasal symptoms #18.2 grams spray,suspension ondansetron HCl 4 mg tablet 4 mg PO Q8H PRN nausea and 09/23/21 vomiting #10 tabs sumatriptan succinate 100 mg tablet 100 mg PO ONCE PRN migraine 09/29/21 headache #9 tabs lisinopril 5 mg tablet 5 mg PO HS #30 tabs 10/19/21 prednisone 20 mg tablet 40 mg PO DAILY 4 days #8 tabs 11/13/21 Allergies Allergy/AdvReac Type Severity Reaction Status Date / Time benzonatate Allergy Severe rash Verified 11/13/21 17:20 [From Amando Denise] codeine Allergy Unknown SKIN RASH Verified 11/13/21 17:20 Penicillins Allergy Unknown SKIN RASH Verified 11/13/21 17:20 Sulfa (Sulfonamide Allergy Unknown SKIN RASH Verified 11/13/21 17:20 Antibiotics) doxycycline Allergy RASH Verified 11/13/21 17:20 adhesive AdvReac Severe SKIN Verified 11/13/21 17:20 BREAKDOWN montelukast AdvReac Mild NAUSEA, Verified 11/13/21 17:20 VOMITING, DIARRHEA General Stated Complaint: RashLesion DONNA: 4 Review of Systems Narrative: Had injections in foot 3 days ago, no fever, no injury. Denies plant exposure. 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 Hyperlipidemia (Chronic) Depressive disorder (Chronic) Generalized anxiety disorder (Chronic) Irritable bowel syndrome (Chronic) Gluten intolerance (Chronic) Tissue Transglutamin IgA, Gliadin IgG and IgA, endomysial IgA negative 11/2007 Skin biopsies negative for DH Primary osteoarthritis of right knee (Chronic) Migraine headache (Chronic) Medical History GERD (gastroesophageal reflux disease) Vitamin D deficiency Surgical History History of carpal tunnel surgery Bilateral S/P cholecystectomy (08/16/16) S/P laparoscopic hysterectomy (~05/1999) at [facility] for endometriosis S/P right knee arthroscopy (01/20/17) Right knee arthroscopy with medial femoral chondroplasty and limited microfracture. Removal of fixed loose body, notch right knee. Chondroplasty patella. Status post bilateral salpingectomy (~05/1999) Status post Anival fundoplication (12/18/07) Family History Mother Essential hypertension Heart disease Hyperlipidemia Breast cancer Type 2 diabetes mellitus Father , at 76 from dementia Alzheimer's dementia Stroke Sister Depression Diabetes Brother No problems noted. Maternal Grandfather , at 62 of [place] Heart disease Myocardial infarction Type 2 diabetes mellitus Maternal Grandmother , at 92 of stroke Stroke Heart disease Paternal Grandfather , at 63 Type 2 diabetes mellitus Heart disease Paternal Grandmother , at 74 of breast cancer Breast cancer Social History Smoking/Tobacco Use Status: Never Second Hand Exposure: Yes Smoking risk assessment performed?: Yes Alcohol Intake: never Drug use: Never Substance use type: does not use Adopted: No Caregiver/Support person: No Household members: family Housing: house current occupation: HOMEMAKER Pets and animals: Yes Pets and animals: other Details: RABBIT Sexually active: No Do you think of yourself as: straight/heterosexual Current gender identity: female What is your relationship status?: How often do you talk on the phone with friends or family?: three or more times per week How often do you get together with friends or relatives?: three or more times per week Do you belong to any clubs or organized social groups?: no Panel score (0-1 are the most socially isolated patients): 1 What type of physical activity do you participate in: walking Duration: < 15 minutes/day Special khadijah needs: No Seatbelt use: always Drive intox or ride w/intox hazardous materials tanker driver: No Working smoke detector in home: Yes Fire extinguisher in home: Yes Carbon monox detector in home: Yes Firearms in home: No Do you feel safe at home: Yes Do you feel safe in your relationship?: Yes Female Reproductive History Menstrual Menopause type: surgical History History 0 Para Hx # Term Pregnancies Multiple births Hx # Pregnancies Ectopic pregnancies AB induced Hx Number of Living Children AB spontaneous Exam Narrative Exam Narrative: GEN: awake, alert, oriented 3. Pleasant, well groomed, interactive. HEAD: Normocephalic, atraumatic ENT: Mucous membranes moist, oropharynx unremarkable, External ear exam unremarkable EYES: PERRL, EOMI EXT: Full ROM, no edema, left distal anterior thigh with raised, erythematous, blanching rash, question subtle vesicles present. The left foot is unremarkable Neuro: Grossly normal neurologic exam, conversant, interactive. Psych: Speech fluent, thoughts congruent, affect normal Course Vital Signs Vital signs: Vital Signs Temperature 36.5 C 11/13/21 17:16 Pulse 67 11/13/21 17:16 Respiratory Rate 18 11/13/21 17:16 Blood Pressure 140/69 11/13/21 17:16 Pulse Oximetry 96 11/13/21 17:16 Temperature 36.5 C 11/13/21 17:16 Temperature Source Temporal Artery Scan 11/13/21 17:16 Pulse 67 11/13/21 17:16 Respiratory Rate 18 11/13/21 17:16 Respiratory Effort Non-Labored 11/13/21 17:20 Blood Pressure 140/69 11/13/21 17:16 Blood Pressure Position Sitting 11/13/21 17:16 Pulse Oximetry 96 11/13/21 17:16 Oxygen Delivery Method Room Air 11/13/21 17:16 Oxygen Flow Rate 0 11/13/21 17:16
[2021-11-13] MEDS: predniSONE 20 MG TAB 40 MG PO (17:38)
== END 2021-11-13 17:50 | disposition home or self-care (01) ==
PROVIDERS: Emergency Provider Emergency Medicine; PCP Nurse Practitioner Family
DX: L23.9 Allergic contact dermatitis, unspecified cause (principal)
CPT/HCPCS: 99283; 99284; J7512

== ENCOUNTER 2021-11-16 03:21 | Outpatient (CLI) | payer MEDICAID, SELFPAY | END 2021-11-16 03:22 | disposition home or self-care (01) | LOC: LOS 03:21 | PROVIDERS: PCP Nurse Practitioner Family; Visit Provider Family Medicine ==

== ENCOUNTER → 2021-12-15 01:42 | Outpatient (CLI) | payer MEDICAID, SELFPAY ==
--- NOTE | 2021-12-15 07:45 | DI.MAMMO_ITS ---
Exam(s) MAMMO SCREENING EXAM: MAMMO SCREENING CLINICAL HISTORY: screening,z12.39 TECHNIQUE: Mammograms were interpreted according to the usual protocol including computer analysis w [employer] CAD system, tomosynthesis and C-view imaging. COMPARISON: 2012 through 2020 FINDINGS: The breasts are composed of mainly fatty density , Breast Density category A. No suspicious masses or suspicious microcalcifications are seen. No skin thickening or abnormal axillary lymph nodes are seen. There has been no significant change from prior exams. IMPRESSION: BI-RADS Category 1, Negative mammogram Yearly screening mammography is recommended. Breast Density - Category A, fatty density. A negative radiographic report should not delay biopsy if a dominant or clinically suspicious mass is present. Up to ten percent of cancers are not identified on mammography. A negative report may reinforce clinical impression. Adenosis and dense breasts may obscure an underlying neoplasm. False positive reports average 6 to 10%. Patient will receive a letter notifying them of these results.
== END ==
PROVIDERS: PCP Nurse Practitioner Family; Visit Provider Nurse Practitioner Family
DX: Z12.31 Encounter for screening mammogram for malignant neoplasm of breast (principal)
CPT/HCPCS: 77063; 77067

== ENCOUNTER 2022-01-04 03:34 | Outpatient (CLI) | payer MEDICAID, SELFPAY ==
[2022-01-04 14:30] LABS: Abs Immature Grans 0.01 10^3/uL (0.0-0.06); Absolute Basophil Count 0.04 10^3/uL (0.0-0.2); Absolute Eosinophil Count 0.14 10^3/uL (0.0-0.7); Absolute Monocyte Count 0.29 10^3/uL (0.1-0.8); Absolute Neutrophil Count 3.72 10^3/uL (1.2-6.7); Basophils % 0.7; Eosinophils % 2.4; HCT 39.7 % (36.0-46.0); HGB 12.7 g/dL (11.2-15.7); Immature Grans % 0.2; Lymphocytes % 27.6; MCH 31.1 pg (27.0-33.0); MCV 97 fL (80-95); MPV 10.1 fL (8.0-11.0); Neutrophils % 64.1; Platelet Count 221 10^3/uL (130-400); RBC 4.08 10^6/uL (3.93-5.22); RDW 12.2 % (11.7-14.6); RDW-SD 43.4 fL
[2022-01-04 15:20] LABS: ALT 20 U/L (14-59); AST 14 U/L (15-37); Albumin 3.8 g/dL (3.4-5.0); Alkaline Phosphatase 72 U/L (46-116); Anion Gap 8.2 mmol/L (3-11); BUN 20 mg/dL (7-18); Bilirubin, Total 0.5 mg/dL (0.2-1.0); CO2 26.8 mmol/L (21.0-32.0); CREATININE 0.8 mg/dL (0.55-1.02); Calcium 8.7 mg/dL (8.5-10.1); Chloride 109 mmol/L (98-107); Glucose 103 mg/dL (74-106); Potassium 4.2 mmol/L (3.5-5.1); Sodium 144 mmol/L (136-145); Total Protein 6.9 g/dL (6.4-8.2)
== END 2022-01-04 03:35 | disposition home or self-care (01) ==
LOC: LBO 03:35
PROVIDERS: PCP Nurse Practitioner Family; Visit Provider Internal Medicine Rheumatology
DX: L30.8 Other specified dermatitis (principal)
CPT/HCPCS: 80053; 85025

== ENCOUNTER 2022-02-25 13:27 | Emergency (ER) | payer MEDICAID, SELFPAY ==
[2022-02-25 13:33] VITALS: BP 142/65; PULSE 63; RESP 20; TEMP 36.8; O2SAT 95
--- NOTE | 2022-02-25 13:58 | ED.GENADUL_ITS ---
Discharge Plan Disposition Patient Disposition: HOME Condition: Stable Discharge Details Clinical Impression: Traumatic ecchymosis of left forearm Primary Care Provider: Jacquelin Skaggs ED Provider: Mesfin Jimenez Home Meds and New Rx's Prescriptions: Continued Humira 40 mg/0.8 mL syringe kit 40 mg SC Q14D Label Comments: Prescribed by rheumatology celecoxib [Celebrex] 100 mg capsule 100 mg PO BID PRN Label Comments: Prescribed by Dr. Garcia sumatriptan succinate 100 mg tablet 100 mg PO ONCE PRN (Reason: migraine headache) Qty: 9 1RF Rx Instructions: take 1 tab as needed for migraines. may repeat in 2 hours if no relief. No more than 4 tab in 24 hours. lisinopril 5 mg tablet 5 mg PO HS Qty: 90 3RF aripiprazole 2 mg tablet 2 mg PO DAILY ondansetron HCl 4 mg tablet 4 mg PO Q8H PRN (Reason: nausea and vomiting) Qty: 10 0RF dapsone 25 mg tablet 25 mg PO DAILY sertraline 100 mg tablet 200 mg PO DAILY dicyclomine 10 mg capsule 10 mg PO TID PRN (Reason: IBS) Qty: 90 4RF albuterol sulfate [ProAir HFA] 90 mcg/actuation HFA aerosol inhaler 2 puff Inhalation Q4H PRN Qty: 3 3RF albuterol sulfate 2.5 mg/0.5 mL solution for nebulization 2.5 mg Inhalation QID PRN (Reason: shortness of breath or wheezing) Qty: 90 4RF fluticasone propionate 50 mcg/actuation spray,suspension 2 spray NS DAILY PRN (Reason: allergy symptoms) Qty: 18.2 4RF Rx Instructions: 2 sprays into each nostril once a day as needed for allergies cetirizine [Zyrtec] 10 mg tablet 10 mg PO DAILY PRN (Reason: allergy symptoms) Qty: 90 4RF budesonide-formoterol [Symbicort] 160-4.5 mcg/actuation HFA aerosol inhaler 2 puff inhalation BID Qty: 10.2 4RF cholecalciferol (vitamin D3) 50 mcg (2,000 unit) capsule 2,000 unit PO DAILY Qty: 90 4RF hydroxychloroquine 200 mg tablet 200 mg PO DAILY Rx Instructions: EDITH Discharge Instructions Instructions: Contusion in Adults (ED) Additional Instructions: Return to the ER immediately for any worsening or new concerning symptoms. Medical Decision Making 51-year-old female here with small area of contusion left forearm. Medical screening exam was performed and patient stable. Usual customary discharge instructions were reviewed. HPI General Mode of arrival: ambulatory . Date/Time Provider Initiated Documentation: 02/25/22 13:49 . Limitations to Documentation: no limitations . Information obtained by: patient . HPI Narrative: 51-year-old female here with left arm injury. Patient notes she slipped off of her exercise bike earlier today and she sustained injury to her left arm. She states she thinks she scraped her arm during the fall. She has skin discoloration left forearm. no modifiers. Patient denies bony injury. No other injury. Related Data Home Medications Medication Instructions Recorded Confirmed adalimumab 40 mg/0.8 mL 40 mg subcut Q14D 07/05/18 02/25/22 subcutaneous syringe kit (Humira) celecoxib 100 mg capsule (Celebrex) 100 mg PO BID PRN 10/17/19 02/25/22 dapsone 25 mg tablet 25 mg PO DAILY 04/29/20 02/25/22 sertraline 100 mg tablet 200 mg PO DAILY 10/22/20 02/25/22 dicyclomine 10 mg capsule 10 mg PO TID PRN IBS #90 tab-caps 04/14/21 02/25/22 albuterol sulfate 90 mcg/actuation 2 puff inhalation Q4H PRN ##3 05/12/21 02/25/22 aerosol inhaler (ProAir HFA) albuterol sulfate 2.5 mg/0.5 mL 2.5 mg (0.5 mL) inhalation QID PRN 06/18/21 02/25/22 solution for nebulization shortness of breath or wheezing #90 ea cetirizine 10 mg tablet (Zyrtec) 10 mg PO DAILY PRN allergy 08/23/21 02/25/22 symptoms #90 tabs fluticasone propionate 50 2 spray NS DAILY PRN allergy 08/23/21 02/25/22 mcg/actuation nasal symptoms #18.2 grams spray,suspension sumatriptan succinate 100 mg tablet 100 mg PO ONCE PRN migraine 09/29/21 02/25/22 headache #9 tabs lisinopril 5 mg tablet 5 mg PO HS #90 tabs 11/16/21 02/25/22 budesonide-formoterol HFA 160 2 puff inhalation BID #10.2 grams 01/19/22 02/25/22 mcg-4.5 mcg/actuation aerosol inhaler (Symbicort) cholecalciferol (vitamin D3) 50 2,000 unit PO DAILY #90 caps 01/19/22 02/25/22 mcg (2,000 unit) capsule aripiprazole 2 mg tablet 2 mg PO DAILY 01/27/22 02/25/22 hydroxychloroquine 200 mg tablet 200 mg PO DAILY 01/27/22 02/25/22 ondansetron HCl 4 mg tablet 4 mg PO Q8H PRN nausea and 01/27/22 02/25/22 vomiting #10 tabs Previous Rx's Medication Instructions Recorded dicyclomine 10 mg capsule 10 mg PO TID PRN IBS #90 tab-caps 04/14/21 albuterol sulfate 90 mcg/actuation 2 puff inhalation Q4H PRN ##3 05/12/21 aerosol inhaler (ProAir HFA) albuterol sulfate 2.5 mg/0.5 mL 2.5 mg (0.5 mL) inhalation QID PRN 06/18/21 solution for nebulization shortness of breath or wheezing #90 ea cetirizine 10 mg tablet (Zyrtec) 10 mg PO DAILY PRN allergy 08/23/21 symptoms #90 tabs fluticasone propionate 50 2 spray NS DAILY PRN allergy 08/23/21 mcg/actuation nasal symptoms #18.2 grams spray,suspension sumatriptan succinate 100 mg tablet 100 mg PO ONCE PRN migraine 09/29/21 headache #9 tabs lisinopril 5 mg tablet 5 mg PO HS #90 tabs 11/16/21 budesonide-formoterol HFA 160 2 puff inhalation BID #10.2 grams 01/19/22 mcg-4.5 mcg/actuation aerosol inhaler (Symbicort) cholecalciferol (vitamin D3) 50 2,000 unit PO DAILY #90 caps 01/19/22 mcg (2,000 unit) capsule ondansetron HCl 4 mg tablet 4 mg PO Q8H PRN nausea and 01/27/22 vomiting #10 tabs Allergies Allergy/AdvReac Type Severity Reaction Status Date / Time benzonatate Allergy Severe rash Verified 01/27/22 14:41 [From Amando Denise] codeine Allergy Unknown SKIN RASH Verified 01/27/22 14:41 Penicillins Allergy Unknown SKIN RASH Verified 01/27/22 14:41 Sulfa (Sulfonamide Allergy Unknown SKIN RASH Verified 01/27/22 14:41 Antibiotics) doxycycline Allergy RASH Verified 01/27/22 14:41 adhesive AdvReac Severe SKIN Verified 01/27/22 14:41 BREAKDOWN montelukast AdvReac Mild NAUSEA, Verified 01/27/22 14:41 VOMITING, DIARRHEA General Stated Complaint: Laceration DONNA: 5 Review of Systems Musculoskeletal Musculoskeletal: Reports as per HPI Integumentary/Breasts Skin/Breast: Reports as per HPI PFSH All Active Problems Traumatic ecchymosis of left forearm (Acute) Essential hypertension (Chronic) Obstructive sleep apnea syndrome (Chronic) Central sleep apnea (Chronic) Moderate persistent asthma (Chronic) Uveitis (Chronic) Idiopathic, no underlying systemic disease. Followed by senior hris analyst Dr. 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 Hyperlipidemia (Chronic) Depressive disorder (Chronic) Generalized anxiety disorder (Chronic) Irritable bowel syndrome (Chronic) Gluten intolerance (Chronic) Tissue Transglutamin IgA, Gliadin IgG and IgA, endomysial IgA negative 11/2007 Skin biopsies negative for DH Primary osteoarthritis of right knee (Chronic) Seasonal allergic rhinitis (Chronic) Migraine headache (Chronic) Stress incontinence (Chronic) Obesity, Class III, BMI 40-49.9 (morbid obesity) (Chronic) Medical History GERD (gastroesophageal reflux disease) Vitamin D deficiency Surgical History History of carpal tunnel surgery Bilateral S/P cholecystectomy (08/16/16) S/P laparoscopic hysterectomy (~05/1999) at [facility] for endometriosis S/P right knee arthroscopy (01/20/17) Right knee arthroscopy with medial femoral chondroplasty and limited microfracture. Removal of fixed loose body, notch right knee. Chondroplasty patella. Status post bilateral salpingectomy (~05/1999) Status post Anival fundoplication (12/18/07) Family History Mother Essential hypertension Heart disease Hyperlipidemia Breast cancer Type 2 diabetes mellitus Father , at 76 from dementia Alzheimer's dementia Stroke Sister Depression Diabetes Brother No problems noted. Maternal Grandfather , at 62 of [place] Heart disease Myocardial infarction Type 2 diabetes mellitus Maternal Grandmother , at 92 of stroke Stroke Heart disease Paternal Grandfather , at 63 Type 2 diabetes mellitus Heart disease Paternal Grandmother , at 74 of breast cancer Breast cancer Social History Smoking/Tobacco Use Status: Never Second Hand Exposure: Yes Smoking risk assessment performed?: Yes Alcohol Intake: never Drug use: Never Substance use type: does not use Adopted: No Caregiver/Support person: No Household members: family Housing: house current occupation: HOMEMAKER Pets and animals: Yes Pets and animals: other Details: RABBIT Sexually active: No Do you think of yourself as: straight/heterosexual Current gender identity: female What is your relationship status?: How often do you talk on the phone with friends or family?: three or more times per week How often do you get together with friends or relatives?: three or more times per week How often do you attend orthodox or worship services?: decline to answer Do you belong to any clubs or organized social groups?: no Panel score (0-1 are the most socially isolated patients): 1 What type of physical activity do you participate in: walking Duration: < 15 minutes/day Frequency: decline to answer Grace/Taoism: Church Special grace needs: No Seatbelt use: always Drive intox or ride w/intox dump truck driver off highway: No Working smoke detector in home: Yes Fire extinguisher in home: Yes Carbon monox detector in home: Yes Firearms in home: No Do you feel safe at home: Yes Do you feel safe in your relationship?: Yes Female Reproductive History Menstrual Menopause type: surgical History History 0 Para Hx # Term Pregnancies Multiple births Hx # Pregnancies Ectopic pregnancies AB induced Hx Number of Living Children AB spontaneous Exam Cardio Rate: regular rate Rhythm: regular rhythm Pulses: radial pulses present on the left 2+ Skin Trauma: other (Small area of ecchymosis left proximal forearm) Extrem Left upper extremity: elbow/forearm Details: normal ROM; no tenderness Course Vital Signs Vital signs: Vital Signs Temperature 36.8 C 02/25/22 13:33 Pulse 63 02/25/22 13:33 Respiratory Rate 20 02/25/22 13:33 Blood Pressure 142/65 H 02/25/22 13:33 Pulse Oximetry 95 02/25/22 13:33 Temperature 36.8 C 02/25/22 13:33 Temperature Source Temporal Artery Scan 02/25/22 13:33 Pulse 63 02/25/22 13:33 Respiratory Rate 20 02/25/22 13:33 Blood Pressure 142/65 H 02/25/22 13:33 Blood Pressure Position Sitting 02/25/22 13:33 Pulse Oximetry 95 02/25/22 13:33 Oxygen Delivery Method Room Air 02/25/22 13:33 Oxygen Flow Rate 0 02/25/22 13:33 Pain Level 2 02/25/22 13:33
== END 2022-02-25 14:23 | disposition home or self-care (01) ==
PROVIDERS: Emergency Provider Student in an Organized Health Care Education/Training Program; PCP Nurse Practitioner Family
DX: S50.12XA Contusion of left forearm, initial encounter (principal); W17.89XA Other fall from one level to another, initial encounter
CPT/HCPCS: 99281; 99282

== ENCOUNTER 2022-07-15 01:23 | Outpatient (CLI) | payer MEDICAID, SELFPAY ==
[2022-07-15 12:21] LABS: Abs Immature Grans 0.01 10^3/uL (0.0-0.06); Absolute Basophil Count 0.04 10^3/uL (0.0-0.2); Absolute Eosinophil Count 0.12 10^3/uL (0.0-0.7); Absolute Lymphocyte Count 1.26 10^3/uL (1.2-3.4); Absolute Monocyte Count 0.29 10^3/uL (0.1-0.8); Absolute Neutrophil Count 2.66 10^3/uL (1.2-6.7); Basophils % 0.9; Eosinophils % 2.7; HCT 40.6 % (36.0-46.0); HGB 13.2 g/dL (11.2-15.7); Immature Grans % 0.2; Lymphocytes % 28.8; MCH 29.9 pg (27.0-33.0); MCHC 32.5 % (32.0-36.0); MCV 92 fL (80-95); Monocytes % 6.6; Neutrophils % 60.8; Platelet Count 235 10^3/uL (130-400); RBC 4.41 10^6/uL (3.93-5.22); RDW 12.1 % (11.7-14.6); RDW-SD 40.8 fL; WBC 4.38 10^3/uL (4.4-10.8)
[2022-07-15 12:46] LABS: ALT 25 U/L (14-59); AST 18 U/L (15-37); Albumin 4.1 g/dL (3.4-5.0); Alkaline Phosphatase 92 U/L (46-116); Anion Gap 5.3 mmol/L (3-11); BUN 20 mg/dL (7-18); Bilirubin, Total 0.6 mg/dL (0.2-1.0); CO2 29.7 mmol/L (21.0-32.0); CREATININE 0.8 mg/dL (0.55-1.02); Calcium 9.3 mg/dL (8.5-10.1); Chloride 107 mmol/L (98-107); Glucose 89 mg/dL (74-106); Potassium 4.3 mmol/L (3.5-5.1); Sodium 142 mmol/L (136-145); Total Protein 7.1 g/dL (6.4-8.2)
== END 2022-07-15 01:24 | disposition home or self-care (01) ==
LOC: LOS 01:23
PROVIDERS: PCP Nurse Practitioner Family; Visit Provider Dermatology
DX: L30.8 Other specified dermatitis (principal); L13.0 Dermatitis herpetiformis
CPT/HCPCS: 36415; 80053; 85025

== ENCOUNTER 2022-10-24 10:21 | Day surgery (SDC) | payer MEDICAID, SELFPAY ==
--- NOTE | 2022-10-23 21:28 | W.COLOREPORT ---
Date of service: 10/24/22 Time of Service: 13:36 Colonoscopy Report Date of procedure: 10/23/22 Pre-op diagnosis general: Screening colonoscopy Post-op diagnosis procedure note: same Procedure: Colonoscopy Surgeon: Brandyn Coe Anesthesia Type: General:No Airway Estimated blood loss (mL): 0 Pathology: none sent Complications: None Disposition: same day Indications: Dianna is ais 52 years old. She is here for her first screening colonoscopy Prep: Miralax/Dulcolax Procedure Start Time: 12:55 Procedure End Time: 13:12 Retraction Time: 11 Findings: Normal screening colonoscopy Procedure Description: After the induction of monitored anesthetic care, and with the patient in left lateral decubitus position, I began by performing an external anorectal exam.? Perineum and skin were normal, as was the anal verge.? There was no evidence of external hemorrhoids.? Next, I performed a digital rectal exam.? I did not appreciate any abnormal findings.? Next, I advanced a colonoscope into the rectal vault.? I performed retroflexion.? This appeared normal.? Using insufflation, I then advanced the colonoscope beyond the rectal folds and into the sigmoid colon before advancing towards the cecum.? The quality of the prep was excellent.? The scope was noted to be in the cecum by identification of the ileocecal valve and appendiceal orifice.? I then began withdrawing the colonoscope using repeated irrigation as necessary for full evaluation of the colonic mucosa. ?Once the scope was withdrawn to the level of the rectum, great care was taken to examine portions of the rectal folds.? I did not see any signs of tumors or polyps throughout the large intestine. Finally, the scope was withdrawn and the patient was brought to the same-day surgery recovery unit as the anesthetic wore off. ?The findings and instructions were shared with the patient prior to discharge.
--- NOTE | 2022-10-23 21:30 | W.PM.DSUDISC ---
Date of service: 10/24/22 Time of Service: 13:35 Discharge Plan Disposition Patient Disposition: Home Condition: Good Discharge Details Reason For Visit: Screening colonoscopy Attending Provider: Brandyn Coe Primary Care Provider: Jacquelin Skaggs Home Meds and New Rx's Prescriptions: Continued albuterol sulfate 2.5 mg/0.5 mL solution for nebulization 2.5 mg Inhalation QID PRN (Reason: shortness of breath or wheezing) Qty: 90 4RF budesonide-formoterol [Symbicort] 160-4.5 mcg/actuation HFA aerosol inhaler 2 puff inhalation BID Qty: 10.2 4RF cetirizine [Zyrtec] 10 mg tablet 10 mg PO DAILY PRN (Reason: allergy symptoms) Qty: 90 4RF dicyclomine 10 mg capsule 10 mg PO TID PRN (Reason: IBS) Qty: 90 4RF fluticasone propionate 50 mcg/actuation spray,suspension 2 spray NS DAILY PRN (Reason: allergy symptoms) Qty: 18.2 4RF Rx Instructions: 2 sprays into each nostril once a day as needed for allergies sumatriptan succinate 100 mg tablet 100 mg PO ONCE PRN (Reason: migraine headache) Qty: 30 1RF Rx Instructions: take 1 tab as needed for migraines. may repeat in 2 hours if no relief. No more than 4 tab in 24 hours. triamcinolone acetonide 0.1 % cream 1 applic TP BID PRN (Reason: dermatitis) Qty: 80 1RF Rx Instructions: Apply dime sized amount to affected areas twice a day as needed for rash ondansetron HCl 4 mg tablet 4 mg PO Q8H PRN (Reason: nausea and vomiting) Qty: 10 0RF duloxetine [Cymbalta] 20 mg capsule,delayed release(DR/EC) 60 mg PO DAILY lisinopril 20 mg tablet 20 mg PO HS Qty: 90 3RF Humira 40 mg/0.8 mL syringe kit 40 mg SC Q14D Patient Comments: Prescribed by rheumatology celecoxib [Celebrex] 100 mg capsule 100 mg PO BID PRN Patient Comments: [place] [place] Prevail Pads Pad See Rx Instructions .Route Qty: 216 3RF Rx Instructions: As directed dapsone 25 mg tablet 25 mg PO DAILY cholecalciferol (vitamin D3) 50 mcg (2,000 unit) capsule 2,000 unit PO DAILY Qty: 90 4RF hydroxychloroquine 200 mg tablet 200 mg PO Q OTHER DAY Rx Instructions: EDITH albuterol sulfate [Ventolin HFA] 90 mcg/actuation HFA aerosol inhaler 2 puff Inhalation Q4H PRN Qty: 8.5 3RF Discontinued polyethylene glycol 3350 17 gram/dose powder 238 g PO ONCE Qty: 238 0RF Rx Instructions: take per colonoscopy instructions bisacodyl [Dulcolax (bisacodyl)] 5 mg tablet,delayed release (DR/EC) 5 mg PO ONCE Qty: 4 0RF Rx Instructions: take per colonoscopy instructions Discharge Instructions Additional Instructions: Dianna, we were able to complete your colonoscopy today without any problems at all. The quality of the prep was excellent. We had great visualization. I did not see any evidence of tumors or polyps. You should consider another screening colonoscopy in 10 years to reduce your chances of colon cancer over the course of your life. 1. If tolerated, consume a soft, low fiber diet for 1-2 days. 2[address] Do not drive, drink alcohol, operate machinery, make critical decisions, or do activities that require coordination or balance for 24 hours. 3. Because air was put into your colon during the procedure, expelling air from your rectum (passing gas or farting) is normal. 4. You may not have a bowel movement for 1-3 days because of the colonoscopy prep. This is normal. 5. Go directly to the emergency room if you notice any of the following: Develop chills (warm to touch), or if you have a thermometer and your temperature is above 101 Difficulty breathing or difficultly swallowing Persistent vomiting Severe abdominal pain, other than gas cramps Severe chest pain Black, tarry stools Any bleeding ? exceeding one tablespoon 6. Call your physician if the site where your intravenous was started becomes red, swollen, painful, and warm to touch. 7. Your physician has reviewed your pre-procedure medications. Please continue to take those medications as previously ordered. You will be given specific information/education regarding any changes to your medications before leaving. Activity:: Activity as Tolerated Diet:: As Tolerated Discharge Orders Discharge Orders: Discharge Order (Routine); Ordered 10/23/22 Ordered By: Brandyn Coe DS: Diagnosis Discharge Diagnosis (1) Screening for colon cancer: Status: Acute Asessment and Plan: Negative screening colonoscopy. Follow-up in 10 years
--- NOTE | 2022-10-24 06:58 | ANES.PREOP_ITS ---
General Info Date of Service Date Performed: 10/24/22 Height: 5 ft 4 in Weight: 118.047 kg Body Mass Index (BMI): 44.6 Surgical Procedure: Operation Date: 10/24/22 11:50 Proposed Procedure Side Surgeon mychal Coe MD Meds Allergies and Home Medications Allergies Allergy/AdvReac Type Severity Reaction Status Date / Time benzonatate Allergy Severe rash Verified 10/24/22 11:47 [From Amando Denise] codeine Allergy Unknown SKIN RASH Verified 10/24/22 11:47 Penicillins Allergy Unknown SKIN RASH Verified 10/24/22 11:47 Sulfa (Sulfonamide Allergy Unknown SKIN RASH Verified 10/24/22 11:47 Antibiotics) doxycycline Allergy RASH Verified 10/24/22 11:47 oxycodone Allergy Nausea Verified 10/24/22 11:47 adhesive AdvReac Severe SKIN Verified 10/24/22 11:47 BREAKDOWN montelukast AdvReac Mild NAUSEA, Verified 10/24/22 11:47 VOMITING, DIARRHEA Home Medication Medication Instructions Recorded adalimumab 40 mg/0.8 mL 40 mg subcut Q14D 07/05/18 subcutaneous syringe kit (Humira) celecoxib 100 mg capsule (Celebrex) 100 mg PO BID PRN 10/17/19 dapsone 25 mg tablet 25 mg PO DAILY 04/29/20 cholecalciferol (vitamin D3) 50 2,000 unit PO DAILY #90 caps 01/19/22 mcg (2,000 unit) capsule hydroxychloroquine 200 mg tablet 200 mg PO Q OTHER DAY 01/27/22 albuterol sulfate 2.5 mg/0.5 mL 2.5 mg (0.5 mL) inhalation QID PRN 07/18/22 solution for nebulization shortness of breath or wheezing #90 ea budesonide-formoterol HFA 160 2 puff inhalation BID #10.2 grams 07/18/22 mcg-4.5 mcg/actuation aerosol inhaler (Symbicort) cetirizine 10 mg tablet (Zyrtec) 10 mg PO DAILY PRN allergy 07/18/22 symptoms #90 tabs dicyclomine 10 mg capsule 10 mg PO TID PRN IBS #90 tab-caps 07/18/22 fluticasone propionate 50 2 spray NS DAILY PRN allergy 07/18/22 mcg/actuation nasal symptoms #18.2 grams spray,suspension sumatriptan succinate 100 mg tablet 100 mg PO ONCE PRN migraine 07/18/22 headache #30 tabs triamcinolone acetonide 0.1 % 1 applic topical BID PRN 07/18/22 topical cream dermatitis #80 grams albuterol sulfate 90 mcg/actuation 2 puff inhalation Q4H PRN #8.5 08/01/22 aerosol inhaler (Ventolin HFA) grams incontinence pad, liner, disp #216 ea 08/18/22 (Prevail Pads) duloxetine 20 mg capsule,delayed 60 mg PO DAILY 09/30/22 release (Cymbalta) lisinopril 20 mg tablet 20 mg PO HS #90 tabs 09/30/22 ondansetron HCl 4 mg tablet 4 mg PO Q8H PRN nausea and 10/19/22 vomiting #10 tabs Current Visit Medications: Current Medications Generic Name Dose Route Start Last Admin Trade Name Freq PRN Reason Stop Dose Admin Hyoscyamine Sulfate 0.125 mg 10/23/22 21:32 Hyoscyamine 0.125 Mg Sl/Oral/Chew SL 11/22/22 21:31 DIRECTED PRN Ringer's Solution 1,000 mls @ 80 mls/hr 10/24/22 06:00 IV 10/24/22 23:59 [facility] IV Miscellaneous Supplies 1 each 10/24/22 06:00 Iv Access IV 10/24/22 23:59 [facility] Ondansetron HCl 4 mg 10/23/22 21:32 Ondansetron 4 Mg/2 Ml Vial IVP 11/22/22 21:31 Q4H PRN PRN Nausea / Vomiting Sodium Chloride 0 ml 10/24/22 06:00 Normal Saline Flush 10 Ml Syr IV 10/24/22 23:59 PRN PRN Sodium Chloride 0 ml 10/24/22 06:00 Normal Saline 10 Ml Vial IJ 10/24/22 23:59 DIRECTED PRN Sterile Water 0 ml 10/24/22 06:00 Water,Injection,Sterile 10 Ml Vial IJ 10/24/22 23:59 DIRECTED PRN PFSH Active Problems Active Problems: Problem Status Onset Code Screening for colon cancer Z12.11 Depressive disorder F32.9 Hyperlipidemia E78.5 Obstructive sleep apnea syndrome G47.33 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 Seasonal allergic rhinitis J30.2 Uveitis H20.9 Generalized anxiety disorder F41.1 Primary osteoarthritis of right knee M17.11 Irritable bowel syndrome K58.9 Moderate persistent asthma J45.40 Central sleep apnea G47.31 Gluten intolerance K90.41 Stress incontinence N39.3 Migraine headache G43.909 Obesity, Class III, BMI 40-49.9 (morbid obesity) E66.01 Essential hypertension I10 Medical History Medical History Celiac disease GERD (gastroesophageal reflux disease) Vitamin D deficiency Surgical History Surgical History History of carpal tunnel surgery Bilateral S/P cholecystectomy (08/16/16) S/P laparoscopic hysterectomy (~05/1999) at [facility] for endometriosis S/P right knee arthroscopy (01/20/17) Right knee arthroscopy with medial femoral chondroplasty and limited microfracture. Removal of fixed loose body, notch right knee. Chondroplasty patella. Status post bilateral salpingectomy (~05/1999) Status post left foot surgery (03/25/22) Left talonavicular joint arthrodesis Status post Anival fundoplication (12/18/07) Tobacco Smoking/Tobacco Use Status: Never Passive smoking exposure: Yes Second hand exposure: Yes Alcohol Alcohol Intake: never Substance Use Substance use: Never Substance use type: does not use Prental History History 0 Para Hx # Term Pregnancies Multiple births Hx # Pregnancies Ectopic pregnancies AB induced Hx Number of Living Children AB spontaneous Vital Signs and Lab Results Vital Signs Most Recent Vital Signs in EMR: Temp Pulse Resp BP Pulse Ox 36.9 C 73 18 152/99 H 98 10/24/22 11:48 10/24/22 11:48 10/24/22 11:48 10/24/22 11:48 10/24/22 11:48 Lab Results Blood Type / Crossmatch: No Data to Display Complete Blood Count: No Data to Display Complete Metabolic Panel: No Data to Display Liver Function Panel: No Data to Display Coagulation Panel: No Data to Display Cardiac Panel: No Data to Display Arterial Blood Gas: No Data to Display Venous Blood Gas: No Data to Display Pancreas Panel: No Data to Display Thyroid Panel: No Data to Display Infectious Disease: No Data to Display Blood Cultures: No Data to Display Toxicology Panel: No Data to Display Panel: No Data to Display Imaging and Studies Imaging and Studies Study information below may be from another EMR and interpreted by another provider. Please see original notes in EMR for more complete details. EKG Summary: 10/03: sinus. Pulmonary Function Summary: 04/03:mild diffusion defect. Anesthesia Assessment and Plan Anesthesia History Personal History: No History of Anesthesia Complications Family History: No Family History of Anesthesia Complications Exercise Tolerance Exercise Tolerance: Metabolic Equivalents>4 Cardiac & Pulmonary Exam Cardiac Exam: Normal S1/S2 Heart Sounds Pulmonary Exam: Clear Bilateral Breath Sounds Implantable Cardiac Device Does patient have a Pacemaker or an ICD?: No Airway Exam Known Difficult Airway: No Mallampati Class: 4 Mouth Opening: Narrow (< 3cm) Thyromental Distance: Less than 3 cm Neck Range of Motion: Full ROM Neck Circumference: Thick Teeth Condition: Normal Dentition ASA Classification ASA Score: ASA 3 Emergency Case?: No NPO Status NPO Status: NPO Clears >2 hours, Solids >8 hours Status Status: Not Relevant due to Medical History Anesthesia Plan Resuscitation Status: Full Code Anesthesia Technique: General Anesthesia Airway Planned: Natural Airway Monitors Used: Standard Monitors Preoperative Comments:: 52 yo female for colo. Sig PMHx: DEONNA/central sleep apnea, GERD, asthma (PFT with slight diffusion defect), HTN, anxiety, migraine, never smoker. Previous Anes: - lap klaudia, mac 3 grade 2, easy mask. - knee scope, LMA 4.
[2022-10-24 11:48] VITALS: BP 152/99; PULSE 73; RESP 18; TEMP 36.9; O2SAT 98
[2022-10-24] MEDS: Lactated Ringers 1,000 ML 80 ML IV (12:37)
[2022-10-24 12:43] VITALS: BMI 44.6
--- NOTE | 2022-10-24 12:44 | W.ANESVAS ---
Midline Placement Date Performed: 10/24/22 Procedure Time: 12:35 Requesting Provider: Wiliam Lobato Procedure Location: Day Surgery Unit Sedation Given (Indicate Dose Given): No Sedation given Patient Mental Status: Awake Sterility: Hand Hygiene Laterality: Right Insertion Site: Basilic Midline Device: PowerGlide Pro 20G Catheter Length: 10 cm Midline Procedure Procedure: Vessel accessed with catheter over needle Dressing: Tegaderm Applied and Statlock Applied Blood Return: Present Flushes: Easily Ultrasound: Sterile probe cover and gel used Ultrasound Image Saved?: No Number of Attempts (See previous attempts in note section): 1 Procedure Tolerated: No Complications Procedure Outcome: Successful Performed By: Wiliam Lobato
[2022-10-24 13:13] VITALS: BP 118/78; PULSE 64; RESP 17; TEMP 36.6; O2SAT 98
--- NOTE | 2022-10-24 13:16 | W.ANESPOSTOP ---
Postoperative Evaluation Date, Time and Location Date Performed: 10/24/22 Time Performed: 13:16 Patient Location: Day Surgery Unit Vital Signs Most Recent Imported Vital Signs: Most Recent Vital Signs Temp Pulse Resp BP Pulse Ox 36.9 C 73 18 152/99 H 98 10/24/22 11:48 10/24/22 11:48 10/24/22 11:48 10/24/22 11:48 10/24/22 11:48 Pain Score Most Recent Pain Score: Most Recent Pain Score Pain Level 0 10/24/22 11:48 Assessment Mental Status: Awake (Alert & Oriented to Patient Baseline) Airway and Respiratory Function: Patent airway with normal (patient baseline) respiratory exam Cardiovascular Function: Hemodynamically Stable Hydration Status: Adequately Hydrated Nausea & Vomiting: No Nausea or Vomiting Pain: Pt. Denies Any Pain Peripheral Nerve Block: Patient did not receive a nerve block
[2022-10-24 13:43] VITALS: BP 128/83; PULSE 67; RESP 18; TEMP 36.6; O2SAT 97
== END 2022-10-24 14:00 | disposition home or self-care (01) ==
PROVIDERS: PCP Nurse Practitioner Family; Visit Provider Surgery
PROC: 0DJD8ZZ Inspection of Lower Intestinal Tract, Via Natural or Artificial Opening Endoscopic (ICD-10-PCS; CPT 45378; principal; 2022-10-24 11:45)
DX: Z12.11 Encounter for screening for malignant neoplasm of colon (principal); K90.0 Celiac disease; K58.9 Irritable bowel syndrome, unspecified
CPT/HCPCS: 45378; 76942; J2704

== ENCOUNTER 2022-11-07 21:38 | Emergency (ER) | payer MEDICAID, SELFPAY ==
[2022-11-07] VITALS (19 sets, daily range): BP systolic 160–181; BP diastolic 71–107; PULSE 60–76; RESP 4–18; TEMP 36.9; O2SAT 96–100
--- NOTE | 2022-11-07 21:45 | RT.EKG_ITS ---
APPROVED REPORT Exam: Resting ECG Reason for Exam: [facility] Patient Location: E HR:73 bpm ECG Measurements Heart Rate 73 AXIS IN 130 P 44 QRSd 94 QRS -1 QT 390 T 20 QTc 429 Conclusion Sinus rhythm...normal P axis, V-rate 60- 99 Ventricular premature complex...V complex w/ short R-R interval
--- NOTE | 2022-11-07 21:56 | ED.GENADUL_ITS ---
Discharge Plan Disposition Patient Disposition: Home Condition: Good Discharge Details Clinical Impression: Asymptomatic hypertension Primary Care Provider: Jacquelin Skaggs ED Provider: Malini Gramajo Home Meds and New Rx's Prescriptions: Continued albuterol sulfate 2.5 mg/0.5 mL solution for nebulization 2.5 mg Inhalation QID PRN (Reason: shortness of breath or wheezing) Qty: 90 4RF budesonide-formoterol [Symbicort] 160-4.5 mcg/actuation HFA aerosol inhaler 2 puff inhalation BID Qty: 10.2 4RF cetirizine [Zyrtec] 10 mg tablet 10 mg PO DAILY PRN (Reason: allergy symptoms) Qty: 90 4RF dicyclomine 10 mg capsule 10 mg PO TID PRN (Reason: IBS) Qty: 90 4RF fluticasone propionate 50 mcg/actuation spray,suspension 2 spray NS DAILY PRN (Reason: allergy symptoms) Qty: 18.2 4RF Rx Instructions: 2 sprays into each nostril once a day as needed for allergies sumatriptan succinate 100 mg tablet 100 mg PO ONCE PRN (Reason: migraine headache) Qty: 30 1RF Rx Instructions: take 1 tab as needed for migraines. may repeat in 2 hours if no relief. No more than 4 tab in 24 hours. triamcinolone acetonide 0.1 % cream 1 applic TP BID PRN (Reason: dermatitis) Qty: 80 1RF Rx Instructions: Apply dime sized amount to affected areas twice a day as needed for rash ondansetron HCl 4 mg tablet 4 mg PO Q8H PRN (Reason: nausea and vomiting) Qty: 10 0RF duloxetine [Cymbalta] 20 mg capsule,delayed release(DR/EC) 60 mg PO DAILY lisinopril 20 mg tablet 20 mg PO HS Qty: 90 3RF Humira 40 mg/0.8 mL syringe kit 40 mg SC Q14D Patient Comments: Prescribed by rheumatology celecoxib [Celebrex] 100 mg capsule 100 mg PO BID PRN Patient Comments: Prescribed by Dr. Garcia ([facility] [place]) Prevail Pads Pad See Rx Instructions .Route Qty: 216 3RF Rx Instructions: As directed dapsone 25 mg tablet 25 mg PO DAILY cholecalciferol (vitamin D3) 50 mcg (2,000 unit) capsule 2,000 unit PO DAILY Qty: 90 4RF hydroxychloroquine 200 mg tablet 200 mg PO Q OTHER DAY Rx Instructions: EDITH albuterol sulfate [Ventolin HFA] 90 mcg/actuation HFA aerosol inhaler 2 puff Inhalation Q4H PRN Qty: 8.5 3RF Discharge Instructions Instructions: Hypertension (ED) Additional Instructions: Your blood pressure is already improving. I believe this elevation was associated with you having a stressful day and having fight with your sister. When you check your blood pressure and it is high, it can make you become anxious and it can continue to go up. If you develop symptoms such as severe headache, chest pain, and your blood pressure is high, please return to the department. Otherwise, please continue with your blood pressure medications. Please keep upcoming appointment with primary care doctor. Try to avoid taking your blood pressure during times of stress. Referrals: Jacquelin Skaggs NP [Primary Care Provider] - Discharge Data Discharge Date/Time-TO BE ENTERED AT DEPARTURE: 11/07/22 22:25 Medical Decision Making Patient is a pleasant 52 year old female, accompanied by her mother, with c/c of asympatomatic HTN. Has hx of HTN. Was seen by PCP recently. She states that she monitors her BP per recommendations from her PCP. Has been taking her medications and had recnet f/u with PCP at which time BP was stable. States that today she had a argument with her sister, checked her BP after. Systolic was initially 170, she continued to check as she was concerned for the degree of HTN, each time she checked it went higher prompting he to seek care. She denies SESAY, vision changes, CP, SOB, abdominal concerns. No missed medications. On exam, patient appears anxious but otherwise is resting comfortably in no acute distress. Exam unremarkable. Discussed that her elevated BP was likely associated with stress from fighting with her sister. Her SBP ws initially 180 but is now down to 160 without intervention. I am concerned that additional medications may make her hypotensive once her stress and anxiety are down. Advised that she continue with her MH coaching that she has been using to help with coping mechanisms. Encouraged stress reduction. We discussed when is a better time to check her BP as well as signs of symptomatic HTN that should prompt return. Encouraged f/u with PCP. All of her questions and concerns were addressed, she is in agreement with this plan. HPI General Date/Time Provider Initiated Documentation: 11/07/22 21:41 . Limitations to Documentation: no limitations . Information obtained by: patient, family and RN notes reviewed . History of P resent Illness 52 year old F presents to the emergency department with the chief complaint of elevated blood pressure, asymptomatic, Patient started experiencing this minute(s) and it has been constant. Other factors that worsen symptoms (stress, fighting with sister) . Patient notes no other symptoms.. Related Data Home Medications Medication Instructions Recorded Confirmed adalimumab 40 mg/0.8 mL 40 mg subcut Q14D 07/05/18 11/03/22 subcutaneous syringe kit (Humira) celecoxib 100 mg capsule (Celebrex) 100 mg PO BID PRN 10/17/19 11/03/22 dapsone 25 mg tablet 25 mg PO DAILY 04/29/20 11/03/22 cholecalciferol (vitamin D3) 50 2,000 unit PO DAILY #90 caps 01/19/22 11/03/22 mcg (2,000 unit) capsule hydroxychloroquine 200 mg tablet 200 mg PO Q OTHER DAY 01/27/22 11/03/22 albuterol sulfate 2.5 mg/0.5 mL 2.5 mg (0.5 mL) inhalation QID PRN 07/18/22 11/03/22 solution for nebulization shortness of breath or wheezing #90 ea budesonide-formoterol HFA 160 2 puff inhalation BID #10.2 grams 07/18/22 11/03/22 mcg-4.5 mcg/actuation aerosol inhaler (Symbicort) cetirizine 10 mg tablet (Zyrtec) 10 mg PO DAILY PRN allergy 07/18/22 11/03/22 symptoms #90 tabs dicyclomine 10 mg capsule 10 mg PO TID PRN IBS #90 tab-caps 07/18/22 11/03/22 fluticasone propionate 50 2 spray NS DAILY PRN allergy 07/18/22 11/03/22 mcg/actuation nasal symptoms #18.2 grams spray,suspension sumatriptan succinate 100 mg tablet 100 mg PO ONCE PRN migraine 07/18/22 11/03/22 headache #30 tabs triamcinolone acetonide 0.1 % 1 applic topical BID PRN 07/18/22 11/03/22 topical cream dermatitis #80 grams albuterol sulfate 90 mcg/actuation 2 puff inhalation Q4H PRN #8.5 08/01/22 11/03/22 aerosol inhaler (Ventolin HFA) grams incontinence pad, liner, disp #216 ea 08/18/22 11/03/22 (Prevail Pads) duloxetine 20 mg capsule,delayed 60 mg PO DAILY 09/30/22 11/03/22 release (Cymbalta) lisinopril 20 mg tablet 20 mg PO HS #90 tabs 09/30/22 11/03/22 ondansetron HCl 4 mg tablet 4 mg PO Q8H PRN nausea and 10/19/22 11/03/22 vomiting #10 tabs Previous Rx's Medication Instructions Recorded cholecalciferol (vitamin D3) 50 2,000 unit PO DAILY #90 caps 01/19/22 mcg (2,000 unit) capsule albuterol sulfate 2.5 mg/0.5 mL 2.5 mg (0.5 mL) inhalation QID PRN 07/18/22 solution for nebulization shortness of breath or wheezing #90 ea budesonide-formoterol HFA 160 2 puff inhalation BID #10.2 grams 07/18/22 mcg-4.5 mcg/actuation aerosol inhaler (Symbicort) cetirizine 10 mg tablet (Zyrtec) 10 mg PO DAILY PRN allergy 07/18/22 symptoms #90 tabs dicyclomine 10 mg capsule 10 mg PO TID PRN IBS #90 tab-caps 07/18/22 fluticasone propionate 50 2 spray NS DAILY PRN allergy 07/18/22 mcg/actuation nasal symptoms #18.2 grams spray,suspension sumatriptan succinate 100 mg tablet 100 mg PO ONCE PRN migraine 07/18/22 headache #30 tabs triamcinolone acetonide 0.1 % 1 applic topical BID PRN 07/18/22 topical cream dermatitis #80 grams albuterol sulfate 90 mcg/actuation 2 puff inhalation Q4H PRN #8.5 08/01/22 aerosol inhaler (Ventolin HFA) grams incontinence pad, liner, disp #216 ea 08/18/22 (Prevail Pads) lisinopril 20 mg tablet 20 mg PO HS #90 tabs 09/30/22 ondansetron HCl 4 mg tablet 4 mg PO Q8H PRN nausea and 10/19/22 vomiting #10 tabs Allergies Allergy/AdvReac Type Severity Reaction Status Date / Time benzonatate Allergy Severe rash Verified 11/09/22 10:58 [From Amando Denise] codeine Allergy Unknown SKIN RASH Verified 11/09/22 10:58 Penicillins Allergy Unknown SKIN RASH Verified 11/09/22 10:58 Sulfa (Sulfonamide Allergy Unknown SKIN RASH Verified 11/09/22 10:58 Antibiotics) doxycycline Allergy RASH Verified 11/09/22 10:58 oxycodone Allergy Nausea Verified 11/09/22 10:58 adhesive AdvReac Severe SKIN Verified 11/09/22 10:58 BREAKDOWN montelukast AdvReac Mild NAUSEA, Verified 11/09/22 10:58 VOMITING, DIARRHEA General Stated Complaint: GenMedical DONNA: 3 Review of Systems Constitutional Constitutional: Reports as per HPI, Denies chills, Denies fever(s), Denies headache(s), Denies lethargy and Denies malaise ENT Ears, Nose, Mouth, and Throat: Denies headache(s) Cardiovascular Cardiovascular: Reports as per HPI, Denies chest pain, Denies lightheadedness, Denies radiating jaw, neck or arm pain and Denies dyspnea Respiratory Respiratory: Reports as per HPI, Denies cough and Denies dyspnea Gastrointestinal Gastrointestinal: Reports as per HPI, Denies abdominal pain, Denies diarrhea, Denies nausea and Denies vomiting Musculoskeletal Musculoskeletal: Reports as per HPI Integumentary/Breasts Skin/Breast: Reports as per HPI Neurologic Neurologic: Reports as per HPI, Denies headache(s), Denies sensory deficit and Denies paresthesias PFSH All Active Problems Asymptomatic hypertension (Acute) Obstructive sleep apnea syndrome (Chronic) Central sleep apnea (Chronic) Essential hypertension (Chronic) Moderate persistent asthma (Chronic) Hyperlipidemia (Chronic) Generalized anxiety disorder (Chronic) Depressive disorder (Chronic) 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 Followed by net sorter Dr. SANTOS [place] [facility] [place] Primary osteoarthritis of right knee (Chronic) Irritable bowel syndrome (Chronic) Gluten intolerance (Chronic) Tissue Transglutamin IgA, Gliadin IgG and IgA, endomysial IgA negative 11/2007 Skin biopsies negative for DH Stress incontinence (Chronic) Migraine headache (Chronic) Obesity, Class III, BMI 40-49.9 (morbid obesity) (Chronic) Seasonal allergic rhinitis (Chronic) Medical History GERD (gastroesophageal reflux disease) Vitamin D deficiency Surgical History History of carpal tunnel surgery Bilateral History of colonoscopy (10/24/22) S/P cholecystectomy (08/16/16) S/P laparoscopic hysterectomy (~05/1999) at [facility] for endometriosis S/P right knee arthroscopy (01/20/17) Right knee arthroscopy with medial femoral chondroplasty and limited microfracture. Removal of fixed loose body, notch right knee. Chondroplasty patella. Status post bilateral salpingectomy (~05/1999) Status post left foot surgery (03/25/22) Left talonavicular joint arthrodesis Status post Anival fundoplication (12/18/07) Family History Mother Essential hypertension Heart disease Hyperlipidemia Breast cancer Type 2 diabetes mellitus Father , at 76 from dementia Alzheimer's dementia Stroke Sister Depression Diabetes Brother No problems noted. Maternal Grandfather , at 62 of [place] Heart disease Myocardial infarction Type 2 diabetes mellitus Maternal Grandmother , at 92 of stroke Stroke Heart disease Paternal Grandfather , at 63 Type 2 diabetes mellitus Heart disease Paternal Grandmother , at 74 of breast cancer Breast cancer Social History Smoking/Tobacco Use Status: Never Second Hand Exposure: Yes Smoking risk assessment performed?: Yes Alcohol Intake: never Drug use: Never Substance use type: does not use Adopted: No Caregiver/Support person: No Household members: family Housing: house Communication Needs: None Do you need help understanding health information?: Never current occupation: HOMEMAKER Pets and animals: Yes Pets and animals: other Details: RABBIT Sexually active: No Do you think of yourself as: straight/heterosexual Current gender identity: female What is your relationship status?: How often do you talk on the phone with friends or family?: never How often do you get together with friends or relatives?: three or more times per week How often do you attend evangelical or methodist services?: decline to answer Do you belong to any clubs or organized social groups?: no Panel score (0-1 are the most socially isolated patients): 1 What type of physical activity do you participate in: none Frequency: does not exercise Grace/Hinduism: None Special grace needs: No Seatbelt use: always Helmet use: No Drive intox or ride w/intox driver material handler: No Working smoke detector in home: Yes Fire extinguisher in home: Yes Carbon monox detector in home: Yes Firearms in home: No Do you feel safe at home: Yes Do you feel safe in your relationship?: Yes Female Reproductive History Menstrual Menopause type: surgical History History 0 Para Hx # Term Pregnancies Multiple births Hx # Pregnancies Ectopic pregnancies AB induced Hx Number of Living Children AB spontaneous Exam Const General: cooperative, healthy appearing, comfortable, no acute distress, well developed and anxious Nutritional Appearance: well nourished and overweight Orientation: alert and awake [facility] Head: normal to inspection, normocephalic and atraumatic Head images: 1. area of erythema, no swelling at this time, appears excoriated Face and sinus: normal facial exam, sinuses nontender and face symmetric Mouth: oral mucosae normal, lip normal and tongue normal Throat: posterior oropharynx normal Eyes General: appearance normal, both eyes and all related structures Resp Effort & Inspection: normal respiratory effort, able to speak in complete sentences and no respiratory distress Auscultation: clear to auscultation bilaterally, no rales, no rhonchi and no wheezes Cardio Rate: regular rate Rhythm: regular rhythm Heart Sounds: S1 normal and S2 normal Skin General skin exam: erythema (area of excoriation to right side of forehead, no other visible lesions) Neuro General: patient alert and patient awake Cognition: normal cognition Speech: speech normal Gait: normal gait Sensory Exam: no sensory deficits noted Extrem General: normal to inspection, capillary refill normal, no pedal edema, no calf tenderness and other (intact distal pulses) Psych Appearance: grossly normal and well kempt Mental Status: mental status grossly normal Speech and Movement: speech and movement normal Course Vital Signs Vital signs: Vital Signs Temperature 36.9 C 11/07/22 21:49 Pulse 76 11/07/22 21:49 Respiratory Rate 18 11/07/22 21:49 Blood Pressure 181/107 H 11/07/22 21:49 Pulse Oximetry 96 11/07/22 21:49 Temperature 36.9 C 11/07/22 21:49 Temperature Source Temporal Artery Scan 11/07/22 21:49 Pulse 76 11/07/22 21:49 Respiratory Rate 18 11/07/22 21:49 Respiratory Effort Normal, Non-Labored 11/07/22 21:54 Blood Pressure 181/107 H 11/07/22 21:49 Pulse Oximetry 96 11/07/22 21:49 Oxygen Delivery Method Room Air 11/07/22 21:49 Oxygen Flow Rate 0 11/07/22 21:49
== END 2022-11-07 22:25 | disposition home or self-care (01) ==
PROVIDERS: Emergency Provider Physician Assistant; PCP Nurse Practitioner Family
DX: F41.9 Anxiety disorder, unspecified (principal); I10 Essential (primary) hypertension
CPT/HCPCS: 36415; 93005; 99283; 93010; 99282

== ENCOUNTER 2022-11-09 11:10 | Outpatient (CLI) | payer MEDICAID, SELFPAY ==
--- NOTE | 2022-11-09 11:00 | RT.EKG_ITS ---
APPROVED REPORT Exam: Resting ECG Reason for Exam: High Blood Pressure Patient Location: O HR:67 bpm ECG Measurements Heart Rate 67 AXIS AK 128 P 58 QRSd 97 QRS 16 QT 390 T 31 QTc 412 Conclusion Sinus rhythm...normal P axis, V-rate 50- 99 Normal Electrocardiogram
== END 2022-11-09 11:11 | disposition home or self-care (01) ==
LOC: DI.CM 11:11
PROVIDERS: PCP Nurse Practitioner Family; Visit Provider Nurse Practitioner Family
DX: R07.89 Other chest pain (principal); I10 Essential (primary) hypertension
CPT/HCPCS: 93010

== ENCOUNTER → 2022-12-23 00:55 | Outpatient (CLI) | payer MEDICAID, SELFPAY ==
--- NOTE | 2022-12-23 11:47 | DI.MAMMO_ITS ---
Exam(s) MAMMO SCREENING EXAM: MAMMO SCREENING CLINICAL HISTORY: screening,Z12.39 TECHNIQUE: Mammograms were interpreted according to the usual protocol including computer analysis w [email or web address] CAD system, tomosynthesis and C-view imaging. COMPARISON: 2013 through 2021 FINDINGS: The breasts are composed of mainly fatty density , Breast Density category A. No suspicious masses or suspicious microcalcifications are seen. No skin thickening or abnormal axillary lymph nodes are seen. There has been no significant change from prior exams. IMPRESSION: BI-RADS Category 1, Negative mammogram Yearly screening mammography is recommended. Breast Density - Category A, fatty density. A negative radiographic report should not delay biopsy if a dominant or clinically suspicious mass is present. Up to ten percent of cancers are not identified on mammography. A negative report may reinforce clinical impression. Adenosis and dense breasts may obscure an underlying neoplasm. False positive reports average 6 to 10%. Patient will receive a letter notifying them of these results.
== END ==
PROVIDERS: PCP Nurse Practitioner Family; Visit Provider Nurse Practitioner Family
DX: Z12.31 Encounter for screening mammogram for malignant neoplasm of breast (principal)
CPT/HCPCS: 77063; 77067

== ENCOUNTER 2023-02-06 02:18 | Outpatient (CLI) | payer MEDICAID, SELFPAY ==
[2023-02-06 12:25] LABS: HGB 10.3 g/dL (11.2-15.7); MCHC 32.2 % (32.0-36.0); MCV 96 fL (80-95); MPV 10.8 fL (8.0-11.0); Platelet Count 223 10^3/uL (130-400); RBC 3.32 10^6/uL (3.93-5.22); RDW 13.5 % (11.7-14.6); RDW-SD 47.8 fL; WBC 5.56 10^3/uL (4.4-10.8)
[2023-02-06 12:29] LABS: Anion Gap 7.3 mmol/L (3-11); BUN 39 mg/dL (7-18); CO2 27.7 mmol/L (21.0-32.0); CREATININE 1.5 mg/dL (0.55-1.02); Calcium 9.9 mg/dL (8.5-10.1); Chloride 103 mmol/L (98-107); Estimated GFR 41.16 (mL/min/1.73m2); Glucose 125 mg/dL (74-106); Potassium 4.2 mmol/L (3.5-5.1); Sodium 138 mmol/L (136-145)
== END 2023-02-06 02:19 | disposition home or self-care (01) ==
LOC: LOS 02:19
PROVIDERS: Dermatology; PCP Nurse Practitioner Family; Visit Provider Nurse Practitioner Family
DX: I10 Essential (primary) hypertension (principal)
CPT/HCPCS: 36415; 80048; 85027

== ENCOUNTER 2023-02-20 04:50 | Outpatient (CLI) | payer MEDICAID, SELFPAY ==
[2023-02-20 12:39] LABS: Anion Gap 10.7 mmol/L (3-11); BUN 26 mg/dL (7-18); CO2 28.3 mmol/L (21.0-32.0); CREATININE 1.4 mg/dL (0.55-1.02); Calcium 9.5 mg/dL (8.5-10.1); Chloride 102 mmol/L (98-107); Estimated GFR 44.71 (mL/min/1.73m2); Glucose 98 mg/dL (74-106); Sodium 141 mmol/L (136-145)
== END 2023-02-20 04:51 | disposition home or self-care (01) ==
LOC: LOS 04:50
PROVIDERS: PCP Nurse Practitioner Family; Visit Provider Nurse Practitioner Family
DX: I10 Essential (primary) hypertension (principal)
CPT/HCPCS: 36415; 80048

== ENCOUNTER 2023-03-20 12:52 | Outpatient (CLI) | payer MEDICAID, SELFPAY ==
--- NOTE | 2023-03-20 10:31 | DI.RAD_ITS ---
Exam(s) XR CHEST 2V PA LATERAL EXAM: XR CHEST 2V PA LATERAL CLINICAL HISTORY: coughing, asthma,r05.9 TECHNIQUE: 2D digital imaging was performed of the chest. Two images were obtained. PA and lateral views were obtained. COMPARISON: CR XR CHEST 2V PA LATERAL from 04/03/2020 FINDINGS: MEDIASTINUM: Normal. HEART: Normal. PULMONARY VASCULATURE: Normal. LUNGS: Clear. PLEURAL SPACE: No pleural effusion or pneumothorax. BONE:Within normal limits for the patient's age. OTHER FINDINGS:Normal. IMPRESSION: No acute pulmonary findings. DATA REPOSITORY: RADIATION DOSE DELIVERED:
[2023-03-20 13:29] LABS: Abs Immature Grans 0.06 10^3/uL (0.0-0.06); Absolute Basophil Count 0.05 10^3/uL (0.0-0.2); Absolute Lymphocyte Count 1.17 10^3/uL (1.2-3.4); Basophils % 0.4; Eosinophils % 0.8; HCT 40.9 % (36.0-46.0); HGB 13.5 g/dL (11.2-15.7); Immature Grans % 0.5; Lymphocytes % 9.5; MCH 30.2 pg (27.0-33.0); MCV 92 fL (80-95); MPV 10.1 fL (8.0-11.0); Monocytes % 1.5; Neutrophils % 87.3; Platelet Count 347 10^3/uL (130-400); RBC 4.47 10^6/uL (3.93-5.22); RDW 12.1 % (11.7-14.6); WBC 12.31 10^3/uL (4.4-10.8)
[2023-03-20 13:33] LABS: Absolute Monocyte Count 0.18 10^3/uL (0.1-0.8); Absolute Neutrophil Count 10.75 10^3/uL (1.2-6.7)
[2023-03-20 13:52] LABS: ALT 27 U/L (14-59); AST 19 U/L (15-37); Alkaline Phosphatase 82 U/L (46-116); Anion Gap 11.5 mmol/L (3-11); BUN 40 mg/dL (7-18); Bilirubin, Total 0.2 mg/dL (0.2-1.0); CO2 25.5 mmol/L (21.0-32.0); CREATININE 1.4 mg/dL (0.55-1.02); Calcium 10.1 mg/dL (8.5-10.1); Chloride 101 mmol/L (98-107); Estimated GFR 44.71 (mL/min/1.73m2); Glucose 186 mg/dL (74-106); Potassium 4.4 mmol/L (3.5-5.1); Sodium 138 mmol/L (136-145); Total Protein 7.4 g/dL (6.4-8.2)
== END 2023-03-20 12:53 | disposition home or self-care (01) ==
PROVIDERS: PCP Nurse Practitioner Family; Visit Provider Student in an Organized Health Care Education/Training Program
DX: R05.9 Cough, unspecified (principal)
CPT/HCPCS: 36415; 80053; 71046; 85025

== ENCOUNTER 2023-03-27 12:06 | Emergency (ER) | payer MEDICAID, SELFPAY ==
--- NOTE | 2023-03-27 11:30 | RT.EKG_ITS ---
APPROVED REPORT Exam: Resting ECG Reason for Exam: syncopal episode Patient Location: E HR:61 bpm ECG Measurements Heart Rate 61 AXIS MS 125 P 53 QRSd 94 QRS 13 QT 406 T 35 QTc 409 Conclusion Sinus rhythm.., V-rate 60- [address] segment or T wave abnormalities to suggest occlusive AL
[2023-03-27 11:55] VITALS: BP 141/63; PULSE 61; RESP 14; TEMP 36.2; O2SAT 100
--- NOTE | 2023-03-27 12:00 | DI.CT_ITS ---
Exam(s) CT HEAD WO EXAM: CT HEAD WO CLINICAL HISTORY: Syncope. TECHNIQUE: Imaging Protocol: Axial computed tomography images with coronal and sagittal reformatted images were created and reviewed COMPARISON: CT HEAD WITHOUT CONTRAST from 11/25/2016 FINDINGS: Ventricles and Extra axial spaces: Normal in size and morphology for the patient's age. Hemorrhage: None. Cerebral parenchyma: No evidence of acute infarct or mass. Midline shift: None. Brainstem/Cerebellum: Normal. Calvarium: Normal. Visualized Paranasal sinuses/Mastoids: Clear. Soft Tissues: Unremarkable. IMPRESSION: No acute intracranial process. RADIATION DOSE DELIVERED: Total DLP DATA REPOSITORY: All CT scans at this facility are submitted to the National Radiology Data Registry (NRDR) Dose Index Registry (DIR) with the [employer] (ACR). RADIATION OPTIMIZATION: All CT scans at this facility use at least one of these dose optimization te chniques: automated exposure control; mA and/or kV adjustment per patient size (includes targeted exa ms where dose is matched to clinical indication); or iterative reconstruction.
--- NOTE | 2023-03-27 12:25 | DI.RAD_ITS ---
Exam(s) XR PORTABLE CHEST AP EXAM: XR PORTABLE CHEST AP CLINICAL HISTORY: SOB, Syncope. TECHNIQUE: 2D digital imaging was performed. COMPARISON: CR XR CHEST 2V PA LATERAL from 03/20/2023 FINDINGS: Single AP portable view. Heart size is upper normal. The mediastinum is not widened. Scarring in the right lung base is unchanged. No pleural effusions. IMPRESSION: No acute pulmonary findings. Scarring in the right lung base is unchanged. DATA REPOSITORY: RADIATION DOSE DELIVERED:
--- NOTE | 2023-03-27 12:37 | W.ED.GENAD ---
Discharge Plan Disposition Patient Disposition: Home Condition: Stable Discharge Details Clinical Impression: Syncope Primary Care Provider: Jacquelin Skaggs ED Provider: Tanisha Barba Home Meds and New Rx's Prescriptions: Continued cetirizine [Zyrtec] 10 mg tablet 10 mg PO DAILY PRN (Reason: allergy symptoms) Qty: 90 4RF dicyclomine 10 mg capsule 10 mg PO TID PRN (Reason: IBS) Qty: 90 4RF triamcinolone acetonide 0.1 % cream 1 applic TP BID PRN (Reason: dermatitis) Qty: 80 1RF Rx Instructions: Apply dime sized amount to affected areas twice a day as needed for rash duloxetine 30 mg capsule,delayed release(DR/EC) 30 mg PO DAILY lisinopril 40 mg tablet 40 mg PO DAILY Qty: 90 3RF Humira 40 mg/0.8 mL syringe kit 40 mg SC Q14D Patient Comments: Prescribed by rheumatology celecoxib [Celebrex] 100 mg capsule 100 mg PO BID PRN Patient Comments: Prescribed by Dr. Garcia prednisone 10 mg tablet 10 mg PO DIRECTED Qty: 42 0RF Rx Instructions: Take 4 tabs daily for 5 days, 3 tabs for 3 days, 3 tabs for 3 days, 1 tabs for 3 days, 0.5 tabs for 3 days (DME) Prevail Pads Pad See Rx Instructions .Route Qty: 216 3RF Rx Instructions: As directed omeprazole 20 mg capsule,delayed release(DR/EC) 20 mg PO DAILY PRN (Reason: heartburn) Qty: 90 0RF chlorthalidone 25 mg tablet 25 mg PO DAILY Qty: 90 3RF Rx Instructions: Take half a tablet daily for a week then increase to 1 tablet daily sumatriptan succinate 100 mg tablet 100 mg PO ONCE PRN (Reason: migraine headache) Qty: 30 1RF Rx Instructions: take 1 tab as needed for migraines. may repeat in 2 hours if no relief. No more than 4 tab in 24 hours. ondansetron HCl 4 mg tablet 4 mg PO Q8H PRN (Reason: nausea and vomiting) Qty: 20 1RF dapsone 25 mg tablet 25 mg PO BID hydroxychloroquine 200 mg tablet 200 mg PO Q OTHER DAY Rx Instructions: EDITH Digestive Advantage Advanced 10 billion cell capsule PO budesonide-formoterol [Symbicort] 160-4.5 mcg/actuation HFA aerosol inhaler 2 puff inhalation BID Qty: 10.2 4RF albuterol sulfate [Ventolin HFA] 90 mcg/actuation HFA aerosol inhaler 2 puff Inhalation Q4H PRN Qty: 18 3RF cholecalciferol (vitamin D3) 50 mcg (2,000 unit) capsule 2,000 unit PO DAILY Qty: 90 3RF fluticasone propionate 50 mcg/actuation spray,suspension 2 spray NS DAILY PRN (Reason: allergy symptoms) Qty: 18.2 4RF Rx Instructions: 2 sprays into each nostril once a day as needed for allergies albuterol sulfate 2.5 mg /3 mL (0.083 %) solution for nebulization 2.5 mg inhalation Q6H PRN (Reason: shortness of breath or wheezing) Qty: 90 3RF dextromethorphan-guaifenesin 20-300 mg/5 mL liquid 5 ml PO Q4H PRN (Reason: cough) Qty: 236 0RF azithromycin 250 mg tablet See Rx Instructions PO .COMPLEX Qty: 6 0RF Rx Instructions: For 250 mg dose pack: take 500 mg today (day 1), then 250 mg for 4 days (days 2-5) PO Discharge Instructions Instructions: Syncope (ED) Additional Instructions: No evidence of heart problems, you do appear slightly dehydrated. No evidence of pneumonia or intracranial abnormality. Follow up with primary care provider in 3-5 days. Return to ED sooner if any worsening or concerns. Increase oral fluids. Please take Tylenol or Ibuprofen with food every 4-6 hours as needed for pain and swelling. Referrals: Jacquelin Skaggs NP [Primary Care Provider] - 3 days Medical Decision Making 52-year-old female presents to the ER with a chief complaint of syncopal episode. She reports that she was having an asthma exacerbation which her room was feeling slightly lightheaded and woke up on the floor. She denies any headache, no chest pain denies any nausea vomiting diarrhea or problems urinating. EMS gave Zofran 4 mg ODT prior to arrival. She is alert and oriented x3 speaking in full sentences. Vital signs are stable. She does have a past medical history of asthma, GERD, hypertension obstructive sleep apnea, Work-up ordered including CBC CMP, EKG, troponin, chest x-ray and urinalysis. Work-up is largely unremarkable. Head CT within normal limits chest x-ray also within normal limits. White blood cell count slightly elevated 13.22, BUN 38 creatinine 1.4 glucose 130 mag is 2.5. Patient given a 500 cc bolus of normal saline. Patient discharged home with follow-up with PCP. This text was generated using [employer] dictation system, please disregard any oddities of phrase or misspellings. Lab Data Lab results reviewed: Yes I reviewed the patient's lab results. Labs: Laboratory Tests Range/Units 03/27/23 03/27/23 03/27/23 12:27 15:04 15:05 WBC (4.4-10.8) 10^3/uL 13.22 H RBC (3.93-5.22) 10^6/uL 4.49 Hgb (11.2-15.7) g/dL 13.6 Hct (36.0-46.0) % 40.8 MCV (80-95) fL 91 MCH (27.0-33.0) pg 30.3 MCHC (32.0-36.0) % 33.3 RDW (11.7-14.6) % 12.4 Plt Count (130-400) 10^3/uL 327 MPV (8.0-11.0) fL 9.6 Immature Gran % 0.4 Neutrophils % 85.3 Lymphocytes % 9.8 Monocytes % 3.3 Eosinophils % 0.8 Basophils % 0.4 Nucleated RBC % (0.0-0.3) % 0.0 Absolute Neutrophils (1.2-6.7) 10^3/uL 11.28 H Absolute Lymphocytes (1.2-3.4) 10^3/uL 1.30 Absolute Monocytes (0.1-0.8) 10^3/uL 0.44 Absolute Eosinophils (0.0-0.7) 10^3/uL 0.11 Absolute Basophils (0.0-0.2) 10^3/uL 0.05 Sodium (136-145) mmol/L 139 Potassium (3.5-5.1) mmol/L 4.0 Chloride (98-107) mmol/L 101 Carbon Dioxide (21.0-32.0) mmol/L 30.6 Anion Gap (3-11) mmol/L 7.4 BUN (7-18) mg/dL 38 H Creatinine (0.55-1.02) mg/dL 1.4 H Est GFR (CKD-EPI 2020) (mL/min/1.73m2) 44.71 Glucose (74-106) mg/dL 130 H Calcium (8.5-10.1) mg/dL 9.4 Magnesium (1.8-2.4) mg/dL 2.5 H Total Bilirubin (0.2-1.0) mg/dL 0.6 AST (15-37) U/L 17 ALT (14-59) U/L 30 Alkaline Phosphatase (46-116) U/L 87 Troponin I (<or=60) ng/L < 50 Cancelled Total Protein (6.4-8.2) g/dL 7.7 Albumin (3.4-5.0) g/dL 3.9 Urine Color (Yellow) Yellow Urine Clarity (Clear) Clear Urine pH (5-8) 6.0 Ur Specific Henderson (1.005-1.025) 1.020 Urine Protein (Negative) mg/dL Negative Urine Ketones (Negative) mg/dL Negative Urine Blood (Negative) Negative Urine Nitrite (Negative) Negative Urine Bilirubin (Negative) Negative Urine Urobilinogen (Up to 0.2) mg/dL 1.0 H Ur Leukocyte Esterase (Negative) Negative Urine Glucose (Negative) mg/dL Negative HPI General Mode of arrival: ambulatory. Date/Time Provider Initiated Documentation: 03/27/23 12:25. Limitations to Documentation: no limitations. Information obtained by: patient, RN notes reviewed and old records reviewed. HPI Narrative: 52-year-old female presents to the ER with a chief complaint of syncopal episode. She reports that she was having an asthma exacerbation which her room was feeling slightly lightheaded and woke up on the floor. She denies any headache, no chest pain denies any nausea vomiting diarrhea or problems urinating. EMS gave Zofran 4 mg ODT prior to arrival. She is alert and oriented x3 speaking in full sentences. Vital signs are stable. She does have a past medical history of asthma, GERD, hypertension obstructive sleep apnea, Related Data Home Medications Medication Instructions Recorded Confirmed adalimumab 40 mg/0.8 mL 40 mg subcut Q14D 02/21/19 10/30/23 subcutaneous syringe kit (Humira) celecoxib 100 mg capsule (Celebrex) 100 mg PO BID PRN 10/17/19 03/13/23 hydroxychloroquine 200 mg tablet 200 mg PO Q OTHER DAY 01/27/22 01/27/23 cetirizine 10 mg tablet (Zyrtec) 10 mg PO DAILY PRN allergy 07/18/22 03/13/23 symptoms #90 tabs dicyclomine 10 mg capsule 10 mg PO TID PRN IBS #90 tab-caps 07/18/22 03/13/23 triamcinolone acetonide 0.1 % 1 applic topical BID PRN 07/18/22 03/13/23 topical cream dermatitis #80 grams incontinence pad, liner, disp #216 ea 08/18/22 03/13/23 (Prevail Pads) duloxetine 30 mg capsule,delayed 30 mg PO DAILY 12/01/22 03/13/23 release lisinopril 40 mg tablet 40 mg PO DAILY #90 tabs 12/01/22 03/13/23 L.acidoph, paracasei,B. lactis 10 cell PO 12/29/22 03/13/23 billion cell capsule (Digestive Advantage Advanced Probiotic) chlorthalidone 25 mg tablet 25 mg PO DAILY #90 tabs 12/29/22 03/13/23 omeprazole 20 mg capsule,delayed 20 mg PO DAILY PRN heartburn #90 12/29/22 03/13/23 release caps budesonide-formoterol HFA 160 2 puff inhalation BID #10.2 grams 01/05/23 03/13/23 mcg-4.5 mcg/actuation aerosol inhaler (Symbicort) albuterol sulfate 90 mcg/actuation 2 puff inhalation Q4H PRN #18 grams 01/12/23 03/13/23 aerosol inhaler (Ventolin HFA) cholecalciferol (vitamin D3) 50 2,000 unit PO DAILY #90 caps 01/23/23 03/13/23 mcg (2,000 unit) capsule dapsone 25 mg tablet 25 mg PO BID 01/27/23 01/27/23 ondansetron HCl 4 mg tablet 4 mg PO Q8H PRN nausea and 01/27/23 03/13/23 vomiting #20 tabs sumatriptan succinate 100 mg tablet 100 mg PO ONCE PRN migraine 01/27/23 03/13/23 headache #30 tabs fluticasone propionate 50 2 spray NS DAILY PRN allergy 02/27/23 03/13/23 mcg/actuation nasal symptoms #18.2 grams spray,suspension albuterol sulfate 2.5 mg/3 mL 2.5 mg (3 mL) inhalation Q6H PRN 03/01/23 03/13/23 (0.083 %) solution for nebulization shortness of breath or wheezing #90 mL prednisone 10 mg tablet 10 mg PO DIRECTED #42 tabs 03/13/23 03/13/23 azithromycin 250 mg tablet See Rx Instructions PO .COMPLEX #6 03/20/23 tabs dextromethorphan-guaifenesin 20 5 ml PO Q4H PRN cough #236 mL 03/20/23 mg-300 mg/5 mL oral liquid Previous Rx's Medication Instructions Recorded cetirizine 10 mg tablet (Zyrtec) 10 mg PO DAILY PRN allergy 07/18/22 symptoms #90 tabs dicyclomine 10 mg capsule 10 mg PO TID PRN IBS #90 tab-caps 07/18/22 triamcinolone acetonide 0.1 % 1 applic topical BID PRN 07/18/22 topical cream dermatitis #80 grams incontinence pad, liner, disp #216 ea 08/18/22 (Prevail Pads) lisinopril 40 mg tablet 40 mg PO DAILY #90 tabs 12/01/22 chlorthalidone 25 mg tablet 25 mg PO DAILY #90 tabs 12/29/22 omeprazole 20 mg capsule,delayed 20 mg PO DAILY PRN heartburn #90 12/29/22 release caps budesonide-formoterol HFA 160 2 puff inhalation BID #10.2 grams 01/05/23 mcg-4.5 mcg/actuation aerosol inhaler (Symbicort) albuterol sulfate 90 mcg/actuation 2 puff inhalation Q4H PRN #18 grams 01/12/23 aerosol inhaler (Ventolin HFA) cholecalciferol (vitamin D3) 50 2,000 unit PO DAILY #90 caps 01/23/23 mcg (2,000 unit) capsule ondansetron HCl 4 mg tablet 4 mg PO Q8H PRN nausea and 01/27/23 vomiting #20 tabs sumatriptan succinate 100 mg tablet 100 mg PO ONCE PRN migraine 01/27/23 headache #30 tabs fluticasone propionate 50 2 spray NS DAILY PRN allergy 02/27/23 mcg/actuation nasal symptoms #18.2 grams spray,suspension albuterol sulfate 2.5 mg/3 mL 2.5 mg (3 mL) inhalation Q6H PRN 03/01/23 (0.083 %) solution for nebulization shortness of breath or wheezing #90 mL prednisone 10 mg tablet 10 mg PO DIRECTED #42 tabs 03/13/23 azithromycin 250 mg tablet See Rx Instructions PO .COMPLEX #6 03/20/23 tabs dextromethorphan-guaifenesin 20 5 ml PO Q4H PRN cough #236 mL 03/20/23 mg-300 mg/5 mL oral liquid Allergies Allergy/AdvReac Type Severity Reaction Status Date / Time benzonatate Allergy Severe rash Verified 03/13/23 09:25 [From Amando Denise] codeine Allergy Unknown SKIN RASH Verified 03/13/23 09:25 Penicillins Allergy Unknown SKIN RASH Verified 03/13/23 09:25 Sulfa (Sulfonamide Allergy Unknown SKIN RASH Verified 03/13/23 09:25 Antibiotics) doxycycline Allergy RASH Verified 03/13/23 09:25 oxycodone Allergy Nausea Verified 03/13/23 09:25 adhesive AdvReac Severe SKIN Verified 03/13/23 09:25 BREAKDOWN montelukast AdvReac Mild NAUSEA, Verified 03/13/23 09:25 VOMITING, DIARRHEA General Stated Complaint: [id number] DONNA: 3 Review of Systems All systems reviewed & are unremarkable except as noted in HPI and below Cardiovascular Cardiovascular: Reports syncope Neurologic Neurologic: Reports syncope PFSH All Active Problems (Updated 03/27/23 @ 15:13 by Tanisha Barba NP) Syncope (Chronic) Cough (Acute) Obstructive sleep apnea syndrome (Chronic) Central sleep apnea (Chronic) Essential hypertension (Chronic) Moderate persistent asthma (Chronic) Hyperlipidemia (Chronic) Generalized anxiety disorder (Chronic) Depressive disorder (Chronic) 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 Follow[place] by hand laminator Dr. SANTOS [place] [facility] [place] osteoarthritis of right knee (Chronic) Irritable bowel syndrome (Chronic) Gluten intolerance (Chronic) Tissue Transglutamin IgA, Gliadin IgG and IgA, endomysial IgA negative 11/2007 Skin biopsies negative for DH Stress incontinence (Chronic) Migraine headache (Chronic) Obesity, Class III, BMI 40-49.9 (morbid obesity) (Chronic) Seasonal allergic rhinitis (Chronic) Medical History GERD (gastroesophageal reflux disease) Vitamin D deficiency Surgical History History of colonoscopy (10/24/22) Status post left foot surgery (03/25/22) Left talonavicular joint arthrodesis Status post Anival fundoplication (12/18/07) History of carpal tunnel surgery Bilateral S/P cholecystectomy (08/16/16) S/P right knee arthroscopy (01/20/17) Right knee arthroscopy with medial femoral chondroplasty and limited microfracture. Removal of fixed loose body, notch right knee. Chondroplasty patella. Status post bilateral salpingectomy (~05/1999) S/P laparoscopic hysterectomy (~05/1999) at [facility] for endometriosis Family History Mother Essential hypertension Heart disease Hyperlipidemia Breast cancer Type 2 diabetes mellitus Father , at 76 from dementia Alzheimer's dementia Stroke Sister Depression Diabetes Brother No problems noted. Maternal Grandfather , at 62 of [place] Heart disease Myocardial infarction Type 2 diabetes mellitus Maternal Grandmother , at 92 of stroke Stroke Heart disease Paternal Grandfather , at 63 Type 2 diabetes mellitus Heart disease Paternal Grandmother , at 74 of breast cancer Breast cancer Social History Smoking/Tobacco Use Status: Never Second Hand Exposure: Yes Smoking risk assessment performed?: Yes Alcohol Intake: never Drug use: Never Substance use type: does not use Adopted: No Caregiver/Support person: No Household members: family Housing: house Communication Needs: None Do you need help understanding health information?: Never current occupation: HOMEMAKER Pets and animals: Yes Pets and animals: other Details: RABBIT Sexually active: No Do you think of yourself as: straight/heterosexual Current gender identity: female What is your relationship status?: How often do you talk on the phone with friends or family?: never How often do you get together with friends or relatives?: three or more times per week How often do you attend scientologist or muslim services?: decline to answer Do you belong to any clubs or organized social groups?: no Panel score (0-1 are the most socially isolated patients): 1 What type of physical activity do you participate in: none Duration: < 15 minutes/day Frequency: does not exercise Grace/Latter Day: None Special grace needs: No Seatbelt use: always Helmet use: No Drive intox or ride w/intox milk wagon driver: No Working smoke detector in home: Yes Fire extinguisher in home: Yes Carbon monox detector in home: Yes Firearms in home: No Do you feel safe at home: Yes Do you feel safe in your relationship?: Yes Female Reproductive History Menstrual Menopause type: surgical History History 0 Para Hx # Term Pregnancies Multiple births Hx # Pregnancies Ectopic pregnancies AB induced Hx Number of Living Children AB spontaneous Exam Narrative Exam Narrative: Constitutional: Alert and oriented x3. Appears stated age. Normal body habitus. Head: Normocephalic, no trauma. Eyes: Pupils PERRL, Red reflex noted, EOM's intact. Eyelids symmetrical without lesions, discharge, or swelling. ENT: Bilateral TM's WNL, External ear normal to inspection, no mastoid TTP, swelling, or erythema, Nasal turbinates WNL, no nasal discharge. Normal dentition, Posterior pharynx WNL, no exudate. Chest: RRR, Normal S1, S2, distal pulses intact. Resp: Lungs clear to auscultation bilaterally, no wheezes, rales, or rhonchi. Abdomen: Soft, non-distended, Normoactive bowel sounds all 4 quads. Musculoskeletal: Normal gait, 5/5 strength to all four extremities. Skin: No suspicious rashes or lesions. Capillary refill less than 2 sec. Neurologic: Cranial nerves II-XII intact. Alert and oriented x 3. Motor: No deficits noted. Sensory: Intact bilaterally all 4 extremities. Reflexes: DTR's intact bilaterally.. Hematologic/Lymphatic: No ecchymosis, no lymphadenopathy. Course Vital Signs Vital signs: Vital Signs Temperature 36.2 C L 03/27/23 11:55 Pulse 61 03/27/23 11:55 Respiratory Rate 14 03/27/23 11:55 Blood Pressure 141/63 H 11/13/23 11:55 Pulse Oximetry 100 03/27/23 11:55 Temperature 36.2 C L 03/27/23 11:55 Temperature Source Skin 03/27/23 11:55 Pulse 61 03/27/23 11:55 Respiratory Rate 14 03/27/23 11:55 Blood Pressure 141/63 H 03/27/23 11:55 Pulse Oximetry 100 03/27/23 11:55 Oxygen Delivery Method Room Air 03/27/23 11:55 Oxygen Flow Rate 0 03/27/23 11:55
[2023-03-27 12:38] LABS: Abs Immature Grans 0.05 10^3/uL (0.0-0.06); Absolute Basophil Count 0.05 10^3/uL (0.0-0.2); Absolute Eosinophil Count 0.11 10^3/uL (0.0-0.7); Absolute Monocyte Count 0.44 10^3/uL (0.1-0.8); Basophils % 0.4; Eosinophils % 0.8; HCT 40.8 % (36.0-46.0); HGB 13.6 g/dL (11.2-15.7); Immature Grans % 0.4; Lymphocytes % 9.8; MCH 30.3 pg (27.0-33.0); MCHC 33.3 % (32.0-36.0); MCV 91 fL (80-95); MPV 9.6 fL (8.0-11.0); Monocytes % 3.3; Neutrophils % 85.3; Platelet Count 327 10^3/uL (130-400); RBC 4.49 10^6/uL (3.93-5.22); RDW 12.4 % (11.7-14.6); WBC 13.22 10^3/uL (4.4-10.8)
[2023-03-27 12:39] LABS: Absolute Neutrophil Count 11.28 10^3/uL (1.2-6.7)
[2023-03-27 12:58] VITALS: RESP 14
[2023-03-27 12:58] LABS: ALT 30 U/L (14-59); AST 17 U/L (15-37); Albumin 3.9 g/dL (3.4-5.0); Alkaline Phosphatase 87 U/L (46-116); Anion Gap 7.4 mmol/L (3-11); BUN 38 mg/dL (7-18); Bilirubin, Total 0.6 mg/dL (0.2-1.0); CO2 30.6 mmol/L (21.0-32.0); CREATININE 1.4 mg/dL (0.55-1.02); Calcium 9.4 mg/dL (8.5-10.1); Chloride 101 mmol/L (98-107); Estimated GFR 44.71 (mL/min/1.73m2); Glucose 130 mg/dL (74-106); Magnesium 2.5 mg/dL (1.8-2.4); Sodium 139 mmol/L (136-145); Total Protein 7.7 g/dL (6.4-8.2); Troponin I < 50 ng/L (<or=60)
[2023-03-27] MEDS: Normal Saline 500 ML IV (13:46)
[2023-03-27 15:13] LABS: Bilirubin Negative (Negative); Blood Negative (Negative); Clarity Clear (Clear); Glucose Negative (Negative); Ketones Negative (Negative); Leukocyte Esterase Negative (Negative); Nitrite Negative (Negative)
== END 2023-03-27 15:30 | disposition home or self-care (01) ==
PROVIDERS: Emergency Provider Registered Nurse Emergency; PCP Nurse Practitioner Family
DX: R55 Syncope and collapse (principal); I10 Essential (primary) hypertension; J45.909 Unspecified asthma, uncomplicated
CPT/HCPCS: 80053; 93005; 70450; 71045; 81003; 83735; 84484; 85025; 93010

== ENCOUNTER 2023-03-28 18:17 | Outpatient (CLI) | payer MEDICAID, SELFPAY ==
[2023-03-28 15:39] LABS: Abs Immature Grans 0.03 10^3/uL (0.0-0.06); Absolute Basophil Count 0.04 10^3/uL (0.0-0.2); Absolute Eosinophil Count 0.05 10^3/uL (0.0-0.7); Absolute Monocyte Count 0.31 10^3/uL (0.1-0.8); Basophils % 0.3; Eosinophils % 0.4; HCT 39.7 % (36.0-46.0); HGB 13.2 g/dL (11.2-15.7); Immature Grans % 0.2; Lymphocytes % 10.7; MCH 30.5 pg (27.0-33.0); MCHC 33.2 % (32.0-36.0); MCV 92 fL (80-95); MPV 9.6 fL (8.0-11.0); Monocytes % 2.3; Neutrophils % 86.1; Platelet Count 391 10^3/uL (130-400); RBC 4.33 10^6/uL (3.93-5.22); RDW 12.3 % (11.7-14.6); RDW-SD 41.9 fL; WBC 13.52 10^3/uL (4.4-10.8)
[2023-03-28 15:45] LABS: Absolute Lymphocyte Count 1.45 10^3/uL (1.2-3.4); Absolute Neutrophil Count 11.64 10^3/uL (1.2-6.7)
[2023-03-30 09:56] LABS: Lyme Ab w Rflx to Lyme Confirm Negative (Negative)
[2023-03-30 09:59] LABS: Syphilis Serology (RPR) Negative (Negative)
== END 2023-03-28 18:18 | disposition home or self-care (01) ==
LOC: LBO 18:18
PROVIDERS: PCP Nurse Practitioner Family; Visit Provider Dermatology
DX: A69.20 Lyme disease, unspecified (principal); A53.9 Syphilis, unspecified
CPT/HCPCS: 36415; 85025; 86592; 86618

== ENCOUNTER 2023-05-22 05:20 | Outpatient (CLI) | payer MEDICAID, SELFPAY ==
[2023-05-22 12:56] LABS: Abs Immature Grans 0.03 10^3/uL (0.0-0.06); Absolute Basophil Count 0.04 10^3/uL (0.0-0.2); Absolute Eosinophil Count 0.18 10^3/uL (0.0-0.7); Absolute Monocyte Count 0.25 10^3/uL (0.1-0.8); Absolute Neutrophil Count 2.54 10^3/uL (1.2-6.7); Eosinophils % 4.3; HCT 33.6 % (36.0-46.0); HGB 11.1 g/dL (11.2-15.7); Immature Grans % 0.7; Lymphocytes % 26.6; MCH 29.8 pg (27.0-33.0); MCV 90 fL (80-95); MPV 9.8 fL (8.0-11.0); Neutrophils % 61.4; Platelet Count 282 10^3/uL (130-400); RBC 3.72 10^6/uL (3.93-5.22); RDW 12.7 % (11.7-14.6); RDW-SD 41.9 fL; WBC 4.14 10^3/uL (4.4-10.8)
[2023-05-22 13:41] LABS: ALT 23 U/L (14-59); AST 13 U/L (15-37); Albumin 3.6 g/dL (3.4-5.0); Alkaline Phosphatase 94 U/L (46-116); Anion Gap 5.2 mmol/L (3-11); BUN 39 mg/dL (7-18); Bilirubin, Total 0.4 mg/dL (0.2-1.0); CO2 27.8 mmol/L (21.0-32.0); CREATININE 1.8 mg/dL (0.55-1.02); Calcium 9.2 mg/dL (8.5-10.1); Chloride 105 mmol/L (98-107); Estimated GFR 32.86 (mL/min/1.73m2); Ferritin 40 ng/mL (8-252); Folate 2.2 ng/mL (8.6-20.0); Glucose 103 mg/dL (74-106); Potassium 4.4 mmol/L (3.5-5.1); Sodium 138 mmol/L (136-145); Total Protein 7.2 g/dL (6.4-8.2); Vitamin B12 434 pg/mL (193-986)
== END 2023-05-22 05:21 | disposition home or self-care (01) ==
LOC: LOS 05:20
PROVIDERS: PCP Nurse Practitioner Family; Visit Provider Nurse Practitioner Family
DX: D64.9 Anemia, unspecified (principal)
CPT/HCPCS: 36415; 80053; 82607; 82728; 82746; 85025

== ENCOUNTER 2023-06-12 03:52 | Outpatient (CLI) | payer MEDICAID, SELFPAY ==
[2023-06-12 12:23] LABS: Abs Immature Grans 0.02 10^3/uL (0.0-0.06); Absolute Basophil Count 0.02 10^3/uL (0.0-0.2); Absolute Eosinophil Count 0.12 10^3/uL (0.0-0.7); Absolute Lymphocyte Count 0.96 10^3/uL (1.2-3.4); Absolute Monocyte Count 0.17 10^3/uL (0.1-0.8); Absolute Neutrophil Count 2.95 10^3/uL (1.2-6.7); Basophils % 0.5; Eosinophils % 2.8; HGB 10.2 g/dL (11.2-15.7); Immature Grans % 0.5; Lymphocytes % 22.6; MCH 29.1 pg (27.0-33.0); MCHC 31.9 % (32.0-36.0); MCV 91 fL (80-95); MPV 10.9 fL (8.0-11.0); Neutrophils % 69.6; Platelet Count 201 10^3/uL (130-400); RDW 12.3 % (11.7-14.6); RDW-SD 41.2 fL; WBC 4.24 10^3/uL (4.4-10.8)
[2023-06-12 12:48] LABS: Anion Gap 10.1 mmol/L (3-11); BUN 21 mg/dL (7-18); CO2 27.9 mmol/L (21.0-32.0); CREATININE 1.2 mg/dL (0.55-1.02); Chloride 107 mmol/L (98-107); Estimated GFR 53.46 (mL/min/1.73m2); Glucose 108 mg/dL (74-106); Potassium 3.7 mmol/L (3.5-5.1); Sodium 145 mmol/L (136-145)
[2023-06-12 12:49] LABS: Folate > 20.0 ng/mL (8.6-20.0)
== END 2023-06-12 03:53 | disposition home or self-care (01) ==
LOC: LOS 03:52
PROVIDERS: PCP Nurse Practitioner Family; Visit Provider Nurse Practitioner Family
DX: I10 Essential (primary) hypertension (principal); E53.8 Deficiency of other specified B group vitamins
CPT/HCPCS: 36415; 80048; 82746; 85025

== ENCOUNTER 2023-08-07 15:33 | Outpatient (CLI) | payer MEDICAID, SELFPAY ==
[2023-08-07 15:13] LABS: Abs Immature Grans 0.02 10^3/uL (0.0-0.06); Absolute Basophil Count 0.05 10^3/uL (0.0-0.2); Absolute Eosinophil Count 0.17 10^3/uL (0.0-0.7); Absolute Lymphocyte Count 1.55 10^3/uL (1.2-3.4); Absolute Monocyte Count 0.39 10^3/uL (0.1-0.8); Absolute Neutrophil Count 4.15 10^3/uL (1.2-6.7); Basophils % 0.8; Eosinophils % 2.7; HGB 11.9 g/dL (11.2-15.7); Immature Grans % 0.3; Lymphocytes % 24.5; MCH 27.9 pg (27.0-33.0); MCHC 32.2 % (32.0-36.0); MCV 87 fL (80-95); MPV 10.2 fL (8.0-11.0); Monocytes % 6.2; Neutrophils % 65.5; Platelet Count 295 10^3/uL (130-400); RBC 4.27 10^6/uL (3.93-5.22); RDW 13.2 % (11.7-14.6); RDW-SD 41.2 fL; WBC 6.33 10^3/uL (4.4-10.8)
[2023-08-07 18:40] LABS: Anion Gap 9.1 mmol/L (3-11); BUN 30 mg/dL (7-18); CO2 27.9 mmol/L (21.0-32.0); CREATININE 1.2 mg/dL (0.55-1.02); Calcium 9.2 mg/dL (8.5-10.1); Chloride 105 mmol/L (98-107); Estimated GFR 53.46 (mL/min/1.73m2); Glucose 107 mg/dL (74-106); NT-proBNP 27 pg/mL (<300); Potassium 4.7 mmol/L (3.5-5.1); Sodium 142 mmol/L (136-145)
== END 2023-08-07 15:34 | disposition home or self-care (01) ==
LOC: LBO 15:35
PROVIDERS: PCP Nurse Practitioner Family; Visit Provider Physician Assistant Surgical
DX: J45.40 Moderate persistent asthma, uncomplicated (principal); I10 Essential (primary) hypertension; R06.02 Shortness of breath; R01.1 Cardiac murmur, unspecified
CPT/HCPCS: 36415; 80048; 83880; 85025

== ENCOUNTER → 2023-08-25 00:31 | Outpatient (CLI) | payer MEDICAID, SELFPAY ==
--- NOTE | 2023-08-25 07:15 | DI.US_ITS ---
APPROVED REPORT EXAM: Comprehensive 2D, Doppler, and color-flow Echocardiogram Patient Location: Out-Patient [facility] Operator: Kim Martin RDCS (AE) Indications: SOB, Murmur Other Information Study Quality: Adequate Conclusion Normal left ventricular wall thickness and chamber size. EF is 55-60%. Wall motion is normal Normal right ventricualr size and functio Both atria are normal in size There is no structural or hemodynamically significant valvular disease Estimated right ventricular systolic pressure is 27 mmHg Wall motion Left Ventricle The left ventricle is normal size. The left ventricular systolic function is normal. The left ventric ular ejection fraction is within the normal range. There is normal left ventricular wall thickness. T here is normal LV segmental wall motion. There is no ventricular septal defect visualized. LVEF is 57 %. Right Ventricle The right ventricle is normal size. The right ventricular systolic function is normal. Atria The left atrium size is normal. The right atrium size is normal. The interatrial septum is intact wit h no evidence for an atrial septal defect. Aortic Valve The aortic valve is normal in structure. Aortic valve is trileaflet. There is no aortic valvular sten osis. No aortic regurgitation is present. Mitral Valve The mitral valve is normal in structure. No evidence of mitral valve stenosis. Trace mitral regurgita tion. Tricuspid Valve The tricuspid valve is normal in structure. There is no tricuspid valve stenosis. Trace to mild tricu spid regurgitation. The RVSP is 27.0 mmHg. Pulmonic Valve The pulmonary valve is normal in structure. There is no pulmonic valvular stenosis. Trace pulmonic re gurgitation. Great Vessels The aortic root is normal in size. The ascending aorta is normal in size. Aortic arch is normal in c aliber. IVC is normal in size and collapses >50% with inspiration. Pericardium There is no pericardial effusion. 2D Dimensions IVSD d PLAX 0.97 cm F: 0.6-1.0 Ao Root d 2.60 cm F: 2.7 - 3.3 LVPW d PLAX 0.99 cm F: 0.6 - 1.0 Ao Asc Diam d 2.83 cm F: 2.3 - 3.1 LVID d PLAX 4.89 cm F: 3.8 - 5.2 LVDs 3.50 cm F: 2.2 - 3.5 LV EF Teichholz 54.8 % FS 28.48 % LV EDV (Teich) 112.5 mL LV ESV (Teich) 50.9 mL M-Mode TAPSE 2.61 cm (M/F) >1.7 Auto EF LV EDV A4C 107.6 mL LV EDV A2C 95.8 mL LV EDV BP 100.1 mL LV ESV A4C 46.4 mL LV ESV A2C 40.5 mL LV ESV BP 43.3 mL LVEF(%) A4C 56.9 % LVEF(%) A2C 57.8 % LVEF(%) BP 56.8 % LV SV A4C 61.3 ml LV SV A2C 55.3 ml LV SV BP 56.8 ml LV CO A4C 3.9 L/min LV CO A2C 3.3 L/min LV CO BP 3.6 L/min HR A4C 64.38 BPM HR A2C 58.83 BPM LV EDV Index (BP) LA Volume LA Length A4C 5.7 cm LA Length A2C 6.0 cm LA Area A4C s 18.60 cm2 LA Area A2C s 19.50 cm2 LA Vol A4C A-L 51.39 mL LA Vol A2C A-L 54.03 mL LA Vol Biplane A-L 53.9 mL LA Vol/BSA A4C A-L LA Vol/BSA A2C A-L LA Vol/BSA BP A-L 25.4 mL/m2 LA Vol A4C MOD 47.6 mL LA Vol A2C MOD 51.9 mL LA Vol BP MOD 50.7 mL RA Volume RA Area A4C 11.2 cm2 RA ESV A4C (A-L) 23.3mL RA Vol/BSA A4C A-L RA Length A4C 4.6 cm RA ESV A4C (MOD) 23.5mL LV Diastology MV E' medial 0.096 (>0.07 m/s) MV E Vmax 1.05 (0.4-1.3 m/s) MV E/E' MED 11.04 (<14) MV A Vmax 0.90 (0.4-1.3 m/s) MV E' lateral 0.102 (>0.1 m/s) E/A Ratio 1.2 MV E/E' LAT 10.34 (<14) MV E' Average 0.099 m/s MV E/E'(average) 10.68 Aortic Valve AoV Vmax 1.90 m/s LVOT Vmax 1.63 m/s AoV Peak Grad 14.5 mmHg LVOT Peak Grad 10.6 mmHg AoV Area (Vmax) 2.39 cm2 LVOT VTI 0.370 m AoV VTI 0.450 m LVOT Mean Grad 6.0 mmHg AoV Mean Jeramie. 1.26 m/s LVOT SV 103.21 mL AoV Mean Grad 7.3 mmHg LVOT Diam s 1.85 cm AoV Area (VTI) 2.29 cm2 Velocity Ratio 0.86 Mitral Valve MV DT 233 (160-240 msec) MV Vmax TIPS 1.18 m/s MV Mean Grad 2.6 (<2mmHg) MV VTI 0.392 m Tricuspid Valve RA Pressure 3.00 mmHg TR Vmax 2.45 m/s TV S' 0.18 m/s TR Peak Grad 24.0 mmHg RVSP (TR) 27.0 mmHg
== END ==
PROVIDERS: PCP Nurse Practitioner Family; Visit Provider Physician Assistant Surgical
DX: R01.1 Cardiac murmur, unspecified (principal)
CPT/HCPCS: 93306

== ENCOUNTER 2023-09-18 05:27 | Outpatient (CLI) | payer MEDICAID, SELFPAY ==
[2023-09-18 13:08] LABS: ALT 24 U/L (14-59); AST 15 U/L (15-37); Albumin 3.7 g/dL (3.4-5.0); Alkaline Phosphatase 112 U/L (46-116); Anion Gap 8.4 mmol/L (3-11); BUN 22 mg/dL (7-18); Bilirubin, Total 0.3 mg/dL (0.2-1.0); CO2 29.6 mmol/L (21.0-32.0); CREATININE 1.1 mg/dL (0.55-1.02); Calculated LDL 116 mg/dL (<100); Chloride 108 mmol/L (98-107); Cholesterol 196 mg/dL (<200); Estimated GFR 59.34 (mL/min/1.73m2); Glucose 99 mg/dL (74-106); HDL Cholesterol 66 mg/dL (40-60); Potassium 3.7 mmol/L (3.5-5.1); Sodium 146 mmol/L (136-145); Total Protein 7.1 g/dL (6.4-8.2); Triglyceride 71 mg/dL (<150)
[2023-09-18 13:18] LABS: Hemoglobin A1C 5.5 % (<5.7)
[2023-09-18 18:40] LABS: Hepatitis C Ab w Rflx HCV PCR Negative (Negative)
== END 2023-09-18 05:28 | disposition home or self-care (01) ==
LOC: LOS 05:27
PROVIDERS: PCP Nurse Practitioner Family; Visit Provider Nurse Practitioner Family
DX: I10 Essential (primary) hypertension (principal); E78.5 Hyperlipidemia, unspecified; E66.01 Morbid (severe) obesity due to excess calories
CPT/HCPCS: 36415; 80053; 80061; 86803; 83036

== ENCOUNTER 2024-01-03 00:48 | Outpatient (CLI) | payer MEDICAID, SELFPAY ==
--- NOTE | 2024-01-03 08:00 | DI.MAMMO_ITS ---
Exam(s) MAMMO SCREENING EXAM: MAMMO SCREENING CLINICAL HISTORY: screening,Z12.39 TECHNIQUE: Mammograms were interpreted according to the usual protocol including computer analysis w [employer] CAD system, tomosynthesis and C-view imaging. COMPARISON: 2014 through 2020 FINDINGS: The breasts are composed of mainly fatty density , Breast Density category A. No suspicious masses or suspicious microcalcifications are seen. No skin thickening or abnormal axillary lymph nodes are seen. There has been no significant change from prior exams. IMPRESSION: BI-RADS Category 1, Negative mammogram Yearly screening mammography is recommended. Breast Density - Category A, fatty density. A negative radiographic report should not delay biopsy if a dominant or clinically suspicious mass is present. Up to ten percent of cancers are not identified on mammography. A negative report may reinforce clinical impression. Adenosis and dense breasts may obscure an underlying neoplasm. False positive reports average 6 to 10%. Patient will receive a letter notifying them of these results.
== END 2024-01-03 01:08 ==
LOC: DI 00:48
PROVIDERS: PCP Nurse Practitioner Family; Visit Provider Nurse Practitioner Family
DX: Z12.31 Encounter for screening mammogram for malignant neoplasm of breast (principal)
CPT/HCPCS: 77063; 77067

== ENCOUNTER 2024-01-22 01:48 | Outpatient (CLI) | payer MEDICAID, SELFPAY ==
[2024-01-22 12:24] LABS: Abs Immature Grans 0.01 10^3/uL (0.0-0.06); Absolute Basophil Count 0.03 10^3/uL (0.0-0.2); Absolute Eosinophil Count 0.17 10^3/uL (0.0-0.7); Absolute Lymphocyte Count 1.25 10^3/uL (1.2-3.4); Absolute Monocyte Count 0.25 10^3/uL (0.1-0.8); Absolute Neutrophil Count 2.84 10^3/uL (1.2-6.7); Basophils % 0.7 %; Eosinophils % 3.7 %; HCT 33.7 % (36.0-46.0); HGB 10.8 g/dL (11.2-15.7); Immature Grans % 0.2 %; Lymphocytes % 27.5 %; MCH 27.8 pg (27.0-33.0); MCV 87 fL (80-95); MPV 10.5 fL (8.0-11.0); Monocytes % 5.5 %; Neutrophils % 62.4 %; Platelet Count 293 10^3/uL (130-400); RBC 3.88 10^6/uL (3.93-5.22); RDW 13.2 % (11.7-14.6); RDW-SD 41.7 fL; WBC 4.55 10^3/uL (4.4-10.8)
[2024-01-22 12:46] LABS: ALT 35 U/L (14-59); AST 20 U/L (15-37); Albumin 3.7 g/dL (3.4-5.0); Alkaline Phosphatase 115 U/L (46-116); BUN 22 mg/dL (7-18); Bilirubin, Total 0.48 mg/dL (0.2-1.0); CREATININE 1.1 mg/dL (0.55-1.02); Calcium 9.1 mg/dL (8.5-10.1); Chloride 106 mmol/L (98-107); Estimated GFR 59.34 (mL/min/1.73m2); Glucose 84 mg/dL (74-106); Potassium 4.2 mmol/L (3.5-5.1); Sodium 142 mmol/L (136-145); Total Protein 6.6 g/dL (6.4-8.2)
[2024-01-22 19:30] LABS: HBs Antibody, Quant <3.1 mIU/mL (See Note); Hep B Surface Ab Negative (See Note); Hepatitis B Core Antibody Negative (Negative); Hepatitis B Surface Antigen Negative (Negative)
[2024-01-22 20:32] LABS: HIV-1/2 Ag & Ab Screen Negative (Negative)
== END 2024-01-22 01:49 | disposition home or self-care (01) ==
LOC: LOS 01:48
PROVIDERS: PCP Nurse Practitioner Family; Visit Provider Internal Medicine Rheumatology
DX: Z00.00 Encounter for general adult medical examination without abnormal findings (principal); Z11.59 Encounter for screening for other viral diseases; Z11.4 Encounter for screening for human immunodeficiency virus [HIV]
CPT/HCPCS: 36415; 80048; 80053; 85027; 86704; 86706; 87340; 87389; 82746; 85025

== ENCOUNTER 2024-02-12 08:20 | Outpatient (CLI) | payer MEDICAID, SELFPAY ==
[2024-02-12 12:15] LABS: HCT 38.1 % (36.0-46.0); HGB 11.7 g/dL (11.2-15.7); MCH 27.2 pg (27.0-33.0); MCHC 30.7 % (32.0-36.0); MCV 89 fL (80-95); MPV 10.7 fL (8.0-11.0); Platelet Count 280 10^3/uL (130-400); RDW 13.1 % (11.7-14.6); RDW-SD 42.3 fL; WBC 5.55 10^3/uL (4.4-10.8)
[2024-02-12 12:32] LABS: Anion Gap 9.1 mmol/L (3-11); BUN 21 mg/dL (7-18); CO2 27.9 mmol/L (21.0-32.0); CREATININE 1.2 mg/dL (0.55-1.02); Calcium 9.5 mg/dL (8.5-10.1); Chloride 105 mmol/L (98-107); Estimated GFR 53.46 (mL/min/1.73m2); Glucose 89 mg/dL (74-106); Potassium 3.8 mmol/L (3.5-5.1); Sodium 142 mmol/L (136-145)
[2024-02-12 12:56] LABS: Uric Acid 5.1 mg/dL (2.6-6.0)
== END 2024-02-12 08:21 | disposition home or self-care (01) ==
LOC: LOS 08:20
PROVIDERS: PCP Nurse Practitioner Family; Referring Provider Nurse Practitioner Family; Visit Provider Nurse Practitioner Family
DX: Z00.00 Encounter for general adult medical examination without abnormal findings (principal); M79.645 Pain in left finger(s)
CPT/HCPCS: 36415; 80048; 85027; 84550

== ENCOUNTER 2024-02-12 10:09 | Outpatient (CLI) | payer MEDICAID, SELFPAY ==
--- NOTE | 2024-02-12 13:24 | DI.RAD_ITS ---
Exam(s) XR HAND LT COMPLETE EXAM: XR HAND LT COMPLETE CLINICAL HISTORY: M79.645 left thumb pain, swelling, no trauma. TECHNIQUE: 2D digital imaging was performed. Three views. COMPARISON: CR LEFT HAND COMPLETE from 11/30/2011 FINDINGS: BONES: No acute fracture is present. No bony destructive lesion is seen. JOINTS: No dislocation present. Minimal degenerative changes of the interphalangeal joints. SOFT TISSUE: Normal. IMPRESSION: Minimal degenerative changes of the interphalangeal joints. DATA REPOSITORY: RADIATION DOSE DELIVERED:
== END 2024-02-12 10:29 ==
LOC: DI 10:11
PROVIDERS: PCP Nurse Practitioner Family; Visit Provider Nurse Practitioner Family
DX: M79.645 Pain in left finger(s) (principal)
CPT/HCPCS: 73130

== ENCOUNTER 2024-03-27 09:59 | Outpatient (CLI) | payer MEDICAID, SELFPAY ==
--- NOTE | 2024-03-27 09:00 | DI.RAD_ITS ---
Exam(s) XR CHEST 2V PA LATERAL EXAM: XR CHEST 2V PA LATERAL CLINICAL HISTORY: cough, R05.9, r/o pneumonia TECHNIQUE: 2D digital imaging was performed. Two views. COMPARISON: No exams were available for comparison FINDINGS: HEART: Normal size. Aorta: Not dilated. PULMONARY VASCULATURE: Normal. MEDIASTINUM: Unremarkable. LUNGS: Clear. PLEURAL SPACE: No pleural effusion or pneumothorax. BONE:Unremarkable for age. SOFT TISSUES: Unremarkable. IMPRESSION: No acute abnormality. DATA REPOSITORY: RADIATION DOSE DELIVERED:
== END 2024-03-27 10:19 ==
LOC: DI 10:00
PROVIDERS: PCP Nurse Practitioner Family; Visit Provider Physician Assistant
DX: R05.9 Cough, unspecified (principal)
CPT/HCPCS: 71046

== ENCOUNTER 2024-04-08 02:43 | Outpatient (CLI) | payer MEDICAID, SELFPAY ==
[2024-04-08 12:39] LABS: Folate > 20.0 ng/mL (8.6-20.0)
== END 2024-04-08 02:44 | disposition home or self-care (01) ==
LOC: LOS 02:43
PROVIDERS: PCP Nurse Practitioner Family; Visit Provider Family Medicine
DX: E53.8 Deficiency of other specified B group vitamins (principal)
CPT/HCPCS: 36415; 82746

== ENCOUNTER 2024-08-05 03:02 | Outpatient (CLI) | payer OTHER, SELFPAY ==
[2024-08-05] MEDS: Levalbuterol HFA 15 GM INH 4 PUFF IH (11:10)
[2024-08-05] MEDS: Inhaler, Assist Device 1 EACH MC (11:10)
--- NOTE | 2024-09-03 14:37 | W.PFT ---
Date of service: 08/05/24 Time of Service: 10:12 Pulmonary Function Test Result Indications: Disability Interpretation Spirometry: No airflow limitation. There is significant bronchodilator response. Impression Normal spirometry with a bronchodilator response. Clinical Correlation therefore is recommended.
== END 2024-08-05 03:03 | disposition home or self-care (01) ==
LOC: RT 03:02
PROVIDERS: PCP Nurse Practitioner Family; Visit Provider Student in an Organized Health Care Education/Training Program
DX: Z02.71 Encounter for disability determination (principal); J45.909 Unspecified asthma, uncomplicated
CPT/HCPCS: 94060; 94618

== ENCOUNTER 2024-08-27 21:53 | Outpatient (REF) | payer MEDICAID, SELFPAY ==
[2024-08-27 22:10] LABS: Abs Immature Grans 0.02 10^3/uL (0.0-0.06); Absolute Basophil Count 0.05 10^3/uL (0.0-0.2); Absolute Eosinophil Count 0.16 10^3/uL (0.0-0.7); Absolute Lymphocyte Count 1.57 10^3/uL (1.2-3.4); Absolute Monocyte Count 0.35 10^3/uL (0.1-0.8); Absolute Neutrophil Count 5.58 10^3/uL (1.2-6.7); Basophils % 0.6 %; Eosinophils % 2.1 %; HGB 11.6 g/dL (11.2-15.7); Immature Grans % 0.3 %; Lymphocytes % 20.3 %; MCH 26.4 pg (27.0-33.0); MCHC 31.4 % (32.0-36.0); MCV 84 fL (80-95); MPV 11.6 fL (8.0-11.0); Monocytes % 4.5 %; Neutrophils % 72.2 %; Platelet Count 287 10^3/uL (130-400); RBC 4.39 10^6/uL (3.93-5.22); RDW 13.8 % (11.7-14.6); RDW-SD 42.3 fL; WBC 7.73 10^3/uL (4.4-10.8)
[2024-08-27 22:26] LABS: TSH (W/Ref FT4) 0.74 uIU/mL (0.36-3.74)
== END 2024-08-27 21:54 | disposition home or self-care (01) ==
LOC: NCHCN 21:53
PROVIDERS: PCP Nurse Practitioner Family; Visit Provider Physician Assistant
DX: M54.2 Cervicalgia (principal)
CPT/HCPCS: 84443; 85025

== ENCOUNTER 2024-09-02 13:31 | Outpatient (CLI) | payer MEDICAID, SELFPAY ==
--- NOTE | 2024-09-02 13:45 | DI.RAD_ITS ---
Exam(s) XR SOFT TISSUE NECK EXAM: XR SOFT TISSUE NECK CLINICAL HISTORY: pain and hoarseness for >2 months, R49.0-dysphonia. TECHNIQUE: 2D digital imaging was performed. AP and lateral images were obtained. COMPARISON: No exams were available for comparison FINDINGS: BONES: No acute fracture is present. There are anterior osteophytes seen at C5-C6. SOFT TISSUE:Airway is patent without radiopaque foreign body. Epiglottis is not enlarged. Prevertebra l soft tissues appear unremarkable. IMPRESSION: Degenerative changes seen in the cervical spine, otherwise, unremarkable radiographs of soft tissue n lorene. DATA REPOSITORY: RADIATION DOSE DELIVERED:
== END 2024-09-02 13:51 ==
LOC: DI 13:31
PROVIDERS: PCP Nurse Practitioner Family; Visit Provider Physician Assistant Surgical
DX: R49.0 Dysphonia (principal)
CPT/HCPCS: 70360

== ENCOUNTER 2024-09-04 02:11 | Outpatient (CLI) | payer MEDICAID, SELFPAY ==
--- NOTE | 2024-09-04 06:45 | DI.US_ITS ---
Exam(s) US SOFT TISSUE HEAD OR NECK EXAM: US SOFT TISSUE HEAD OR NECK CLINICAL HISTORY: tender submandibular gland,hoarseness,dysphonia,r49.0. TECHNIQUE: Ultrasound was performed using standard protocol. COMPARISON: No exams were available for comparison FINDINGS: Sonographic assessment utilizing grayscale and color Doppler imaging was performed and targeted to th e area of clinical concern. The submandibular glands appear grossly unremarkable bilaterally. There are sonographically benign-a ppearing lymph nodes in the neck adjacent to the submandibular glands bilaterally. The largest on th e right measures 1.2 x 0.7 x 1.2 cm. The largest on the left measures 1.4 x 0.6 x 0.9 cm. Limited e valuation of the thyroid gland shows no nodules. The thyroid gland is homogeneous and normal in echo genicity. IMPRESSION: Unremarkable examination. DATA REPOSITORY:
== END 2024-09-04 02:31 ==
PROVIDERS: PCP Nurse Practitioner Family; Visit Provider Physician Assistant Surgical
DX: R49.0 Dysphonia (principal); K11.8 Other diseases of salivary glands
CPT/HCPCS: 76536

== ENCOUNTER 2024-09-25 01:54 | Outpatient (CLI) | payer OTHER, SELFPAY ==
--- NOTE | 2024-09-25 09:36 | DI.RAD_ITS ---
Exam(s) XR KNEE RT 3V AP,LAT,KEE EXAM: XR KNEE RT 3V AP,LAT,KEE CLINICAL HISTORY: disability determination, z02.71,state severity of degeneration, mild,mod,. TECHNIQUE: 2D digital imaging was performed of the right knee. Three views obtained. AP, lateral an d PA tunnel views were obtained. COMPARISON: CR XR knee RT 3V AP,lat,kee from 06/25/2018 FINDINGS: BONES: No acute fracture is present. No bony destructive lesion is seen. JOINTS: In the medial femoral tibial patellofemoral joints, there are osteophytes and [id number] e joint space narrowing. No joint effusion is seen. There are 2 osseous densities posteriorly in the joint space which may represent loose bodies. SOFT TISSUE: Normal. IMPRESSION: Moderate arthrosis of the right knee. DATA REPOSITORY: RADIATION DOSE DELIVERED:
--- NOTE | 2024-09-25 09:36 | DI.RAD_ITS ---
Exam(s) XR ANKLE LT COMPLETE EXAM: XR ANKLE LT COMPLETE CLINICAL HISTORY: LT ANKLE PAIN, DISABILITY DETERMINATION, Z02.71,STATE SEVERITY OF TECHNIQUE: 2D digital imaging was performed of the left ankle. Three images were obtained. AP, lat eral and oblique views were obtained. COMPARISON: CR XR ANKLE LT COMPLETE from 01/22/2021 CR XR FOOT LT COMPLETE from 01/22/2021 FINDINGS: BONES: No acute fracture is present. No bony destructive lesion is seen. Since the prior examination there has been a talonavicular fusion. No suspicious lucencies are seen around the orthopedic hardwa re. There is an enthesophyte at the posterior calcaneus. There is a small spur at the plantar surfa ce of the calcaneus. JOINTS:The ankle mortise is normally aligned. SOFT TISSUE: There is soft tissue swelling around the ankle. IMPRESSION: 1. Interval talonavicular fusion. 2. No acute abnormality. 3. Calcaneal spurs. DATA REPOSITORY: RADIATION DOSE DELIVERED:
== END 2024-09-25 02:14 ==
PROVIDERS: PCP Nurse Practitioner Family; Visit Provider Pediatrics Pediatric Rheumatology
DX: M17.11 Unilateral primary osteoarthritis, right knee (principal); Z02.71 Encounter for disability determination; M25.562 Pain in left knee
CPT/HCPCS: 73562; 73610

== ENCOUNTER 2024-11-19 01:38 | Outpatient (CLI) | payer MEDICAID, SELFPAY ==
[2024-11-19 13:24] LABS: Estimated GFR 66.12 (mL/min/1.73m2)
[2024-11-19] MEDS: Normal Saline - Diluent 50 ML VIAL IJ (13:46)
[2024-11-19] MEDS: Omnipaque 350 MG/ML 100 ML BTL IJ (13:47)
--- NOTE | 2024-11-19 13:48 | DI.CT_ITS ---
Exam(s) CT SINUS W EXAM: CT SINUS W CLINICAL HISTORY: painful lesion with irritation left nasal passage,sinusitis. Evaluate for sinusitis. TECHNIQUE: Imaging Protocol: Axial computed tomography images with coronal and sagittal reformatted images were created and reviewed. COMPARISON: CT CT HEAD WO from 03/27/2023 FINDINGS: Frontal sinuses: Normally aerated. Ethmoid air cells: Normally aerated. Maxillary sinuses: Normally aerated. Sphenoid sinuses: 5 millimeter mucous retention cyst at the infero medial right sphenoid sinus. The left sphenoid sinus is normally aerated. Ostiomeatal complexes: Patent. Nasal cavity: Septum is midline. There is mild rigo bullosa of both middle turbinates. The nasal cavity is clear. Visualized regional soft tissues: No acute findings. Orbits: Unremarkable. Bones: Unremarkable. Mastoid Air Cells: Normally aerated. Visualized portions of the brain: Unremarkable as visualized. Visualized vasculature is also grossly normal. IMPRESSION: 5 millimeter mucous retention cyst at the inferomedial right sphenoid sinus. The sinuses are otherwise clear. The nasal cavity is clear. RADIATION DOSE DELIVERED: Total DLP DATA REPOSITORY: All CT scans at this facility are submitted to the National Radiology Data Registry (NRDR) Dose Index Registry (DIR) with the [employer] ([employer]). RADIATION OPTIMIZATION: All CT scans at this facility use at least one of these dose optimization techniques: automated exposure control; mA and/or kV adjustment per patient size (includes targeted exams where dose is matched to clinical indication); or iterative reconstruction.
== END 2024-11-19 01:58 ==
LOC: DI 01:38
PROVIDERS: PCP Nurse Practitioner Family; Visit Provider Physician Assistant Surgical
DX: J34.89 Other specified disorders of nose and nasal sinuses (principal); J30.2 Other seasonal allergic rhinitis
CPT/HCPCS: 70487; 82565; J3490

== ENCOUNTER 2025-02-05 01:37 | Outpatient (CLI) | payer MEDICAID, SELFPAY ==
[2025-02-05 16:11] LABS: ALT 24 U/L (14-59); AST 23 U/L (15-37); Albumin 3.8 g/dL (3.4-5.0); Alkaline Phosphatase 173 U/L (46-116); Anion Gap 12.5 mmol/L (3-11); BUN 29 mg/dL (7-18); CO2 24.5 mmol/L (21.0-32.0); Calcium 9.5 mg/dL (8.5-10.1); Calculated LDL 122 mg/dL (<100); Chloride 104 mmol/L (98-107); Cholesterol 201 mg/dL (<200); Estimated GFR 44.16 (mL/min/1.73m2); Glucose 116 mg/dL (74-106); HDL Cholesterol 43 mg/dL (>or=50); Potassium 4.2 mmol/L (3.5-5.1); Sodium 141 mmol/L (136-145); Total Protein 8.1 g/dL (6.4-8.2); Triglyceride 183 mg/dL (<150)
[2025-02-05 20:33] LABS: Bilirubin, Total 0.3 mg/dL (0.2-1.0)
== END 2025-02-05 01:38 | disposition home or self-care (01) ==
LOC: LBO 01:37
PROVIDERS: PCP Nurse Practitioner Family; Visit Provider Nurse Practitioner Family
DX: Z00.00 Encounter for general adult medical examination without abnormal findings (principal); F41.1 Generalized anxiety disorder; F33.9 Major depressive disorder, recurrent, unspecified; I10 Essential (primary) hypertension; E78.5 Hyperlipidemia, unspecified; H20.9 Unspecified iridocyclitis; J45.40 Moderate persistent asthma, uncomplicated; G47.33 Obstructive sleep apnea (adult) (pediatric); L25.9 Unspecified contact dermatitis, unspecified cause
CPT/HCPCS: 36415; 80053; 80061

== ENCOUNTER 2025-02-05 01:38 | Outpatient (CLI) | payer MEDICAID, SELFPAY ==
--- NOTE | 2025-02-05 07:00 | DI.MAMMO_ITS ---
Exam(s) MAMMO SCREENING EXAM: MAMMO SCREENING CLINICAL HISTORY: screening,z12.39 TECHNIQUE: Bilateral full field digital CC and MLO mammographic images were obtained with 3D tomosynthesis and utilizing computer aided detection (CAD). COMPARISON: Comparison is made with prior examinations. FINDINGS: Masses/Architectural Distortion: No suspicious masses or areas of architectural distortion are present. Microcalcifications: No suspicious pleomorphic-type are seen. Skin Thickening/Nipple Retraction: None. IMPRESSION: 1. No significant interval change with no specific features of malignancy noted. 2. Unless there is more urgent need, screening mammography is recommended, as per [employer] guidelines. BI-RADS Category 1 - Negative Breast Density - Category A - The breast are almost entirely fatty. Breast density Category C or D implies that the patient has dense breast tissue. Dense breast tissue can make it harder to find cancer on a mammogram. Dense breast tissue is also associated with an increased risk of breast cancer. This information about the result of the mammogram report was provided to the patient to raise their awareness. Use this report when you speak with the patient about their risks for breast cancer, which includes their family history. At that time, you may recommend additional screening tests (Ultrasound or MRI) as these tests may add significant information. A negative radiographic report should not delay biopsy if a dominant or clinically suspicious mass is present. Up to ten percent of cancers are not identified on mammography. A negative report may reinforce clinical impression. Adenosis and dense breasts may obscure an underlying neoplasm. False positive reports average 6 to 10%. Patient will receive a letter notifying them of these results.
== END 2025-02-05 01:58 ==
LOC: DI 01:38
PROVIDERS: PCP Nurse Practitioner Family; Visit Provider Nurse Practitioner Family
DX: Z12.31 Encounter for screening mammogram for malignant neoplasm of breast (principal)
CPT/HCPCS: 77063; 77067

== ENCOUNTER 2025-02-22 12:53 | Outpatient (CLI) | payer MEDICAID, SELFPAY ==
--- NOTE | 2025-02-22 13:45 | DI.RAD_ITS ---
Exam(s) XR CHEST 2V PA LATERAL EXAM: XR CHEST 2V PA LATERAL CLINICAL HISTORY: cough r/o pneumonia TECHNIQUE: 2D digital imaging was performed of the chest. Two images were obtained. PA and lateral views were obtained. COMPARISON: CR XR PORTABLE CHEST AP from 03/27/2023 CR XR CHEST 2V PA LATERAL from 03/27/2024 FINDINGS: MEDIASTINUM: Normal. HEART: Normal. PULMONARY VASCULATURE: Normal. LUNGS: The linear markings overlying the heart on the frontal view of the chest are unchanged compared to the prior examination and are likely vascular in nature. There are no focal consolidating infiltrates present. PLEURAL SPACE: No pleural effusion or pneumothorax. BONE:Within normal limits for the patient's age. OTHER FINDINGS:Normal. IMPRESSION: 1. No acute pulmonary findings. If there is continued clinical concern, a follow-up examination may be obtained. 2. The preliminary [facility] report was reviewed. DATA REPOSITORY: RADIATION DOSE DELIVERED:
--- NOTE | 2025-02-22 15:01 | DI.[facility]_ITS ---
PROCEDURE INFORMATION: Exam: XR Chest Exam date and time: 02/22/2025 1:50 PM Age: 54 years old Clinical indication: Other: Cough R/O pneumonia TECHNIQUE: Imaging protocol: Radiologic exam of the chest. Views: 2 views. COMPARISON: CR XR CHEST 2V PA LATERAL 27/03/2024 10:44 FINDINGS: Lungs: Patchy infiltrate left lower lobe lung consistent with early lobar pneumonia. There is diffuse mild nonspecific prominence of the pulmonary interstitium. Pleural spaces: There is no evidence of pneumothorax. There are no pleural effusions present. Heart/Mediastinum: The heart is normal. The mediastinum is normal. Bones/joints: The skeletal structures and soft tissues show no evidence of fracture or other acute processes. The thoracic spine demonstrates mild degenerative changes at multiple levels. Soft tissues: The soft tissues of the extrathoracic region are unremarkable. IMPRESSION: 1. Patchy infiltrate left lower lobe lung consistent with early lobar pneumonia. 2. There is diffuse mild nonspecific prominence of the pulmonary interstitium. Dictated and Authenticated by: Juarez Maria MD. Orderin Annette Acuna MD
== END 2025-02-22 13:13 ==
PROVIDERS: PCP Nurse Practitioner Family; Visit Provider Physician Assistant
DX: R05.9 Cough, unspecified (principal)
CPT/HCPCS: 71046

== ENCOUNTER 2025-03-03 03:54 | Outpatient (CLI) | payer MEDICAID, SELFPAY ==
[2025-03-03 13:20] LABS: ALT 20 U/L (14-59); AST 17 U/L (15-37); Albumin 3.3 g/dL (3.4-5.0); Alkaline Phosphatase 144 U/L (46-116); Anion Gap 8.3 mmol/L (3-11); BUN 23 mg/dL (7-18); Bilirubin, Total 0.3 mg/dL (0.2-1.0); CO2 26.7 mmol/L (21.0-32.0); Calcium 8.8 mg/dL (8.5-10.1); Chloride 107 mmol/L (98-107); Estimated GFR 66.12 (mL/min/1.73m2); Glucose 87 mg/dL (74-106); Potassium 4.1 mmol/L (3.5-5.1); Sodium 142 mmol/L (136-145); Total Protein 7.2 g/dL (6.4-8.2)
== END 2025-03-03 03:55 | disposition home or self-care (01) ==
LOC: LBO 03:54
PROVIDERS: PCP Nurse Practitioner Family; Visit Provider Nurse Practitioner Family
DX: I10 Essential (primary) hypertension (principal)
CPT/HCPCS: 36415; 80053